=== PATIENT | female | born 1985 | race Caucasian/White ===

== ENCOUNTER 2017-09-16 07:17 | Emergency (ER) | payer BC ==
[2017-09-16 07:36] VITALS: BP 103/52
--- NOTE | 2017-09-16 08:53 | UC ---
Ear Complaint HPI - HPI Summary HPI Summary: RIGHT EAR PAIN AND PRESSURE FOR ABOUT A WEEK. ALSO HAS HAD URI SX FOR SEVERAL WEEKS. DOES NOT FEEL SHE IS GETTING BETTER. - History of Current Complaint Chief Complaint: UCEar Stated Complaint: EAR PAIN Time Seen by Provider: 09/16/17 08:45 Hx Obtained From: Patient Hx Last Menstrual Period: 08/19/17 Onset/Duration: Gradual Onset, Lasting Weeks, Still Present Severity Initially: Moderate Severity Currently: Moderate Pain Intensity: 7 Pain Scale Used: 0-10 Numeric Aggravating Factors: Nothing Alleviating Factors: Nothing Associated Signs/Symptoms: Positive: Hearing Loss, URI Symptoms. Negative: Discharge - Allergies/Home Medications Allergies/Adverse Reactions: Allergies Allergy/AdvReac Type Severity Reaction Status Date / Time No Known Allergies Allergy Verified 09/16/17 07:36 PMH/Surg Hx/FS Hx/Imm Hx Endocrine History: Thyroid Disease - LUCAS - Surgical History Surgical History: None - Family History Known Family History: Positive: Hypertension - Social History Alcohol Use: None Substance Use Type: None Smoking Status (MU): Never Smoked Tobacco Review of Systems Constitutional: Fatigue ENT: Ear Ache, Nasal Discharge Respiratory: Cough Cardiovascular: Negative Gastrointestinal: Negative Neurological: Headache All Other Systems Reviewed And Are Negative: Yes Physical Exam Triage Information Reviewed: Yes Appearance: No Pain Distress, Well-Nourished, Ill-Appearing - MILD Vital Signs: Initial Vital Signs Temp 97.6 F 09/16/17 07:31 Pulse 76 09/16/17 07:31 Resp 18 09/16/17 07:31 BP 103/52 09/16/17 07:31 Pulse Ox 100 09/16/17 07:31 Vital Signs Reviewed: Yes Eyes: Positive: Conjunctiva Clear ENT: Positive: Hearing grossly normal, Pharynx normal, TMs normal Neck: Positive: Supple, Nontender, No Lymphadenopathy Respiratory Exam: Normal Cardiovascular Exam: Normal Abdomen Description: Positive: Soft Musculoskeletal: Positive: No Edema Neurological: Positive: Alert Psychological: Positive: Age Appropriate Behavior Skin: Negative: rashes Ear Complaint Course/Dx - Course Course Of Treatment: NO CLEAR INFECTION ON EXAM BUT GIVEN LENGTH OF TIME OF ILLNESS AND UPCOMING TRAVEL WILL COVER WITH ABX. SEEK FOLLOW-UP IF NOT IMPROVING EXPECTED. - Differential Dx/Diagnosis Provider Diagnoses: RIGHT EAR PAIN/URI Discharge - Discharge Plan Condition: Stable Disposition: HOME Prescriptions: Amoxicillin PO (*) [Amoxicillin 500 MG CAP*] 1,000 mg PO Q12H #28 cap Fluconazole 150 MG (NF) [Diflucan 150 mg (NF)] 150 mg PO ONCE #2 tab Patient Education Materials: Upper Respiratory Infection (ED), Earache (ED) Referrals: Kristan Dwyer [employer] DEVELOPER [Primary Care Provider] - If Needed Additional Instructions: YOUR SYMPTOMS MAY BE VIRALLY MEDIATED BUT GIVEN THE LENGTH OF TIME YOU HAVE BEEN ILL WE WILL COVER YOU WITH ANTIBIOTICS. IF YOU START THE MEDICINE BE SURE TO TAKE IT FOR THE FULL COURSE. REST, HYDRATE, OTC MEDS NEEDED. SEEK FOLLOW- UP WITH YOUR PCP IF YOU ARE NOT IMPROVING OVER THE NEXT 1-2 WEEKS.
== END 2017-09-16 09:00 | disposition home or self-care (01) ==
LOC: UCEAST 07:17
DX: H92.01 Otalgia, right ear (principal); J06.9 Acute upper respiratory infection, unspecified
CPT/HCPCS: 99212; G0463

== ENCOUNTER 2019-04-08 06:07 | Emergency (ER) | payer BC ==
[2019-04-08] MEDS ORDERED: traMADol TAB* 50 MG PO ONE (06:43)
[2019-04-08 07:25] LABS: ABS Basophils 0.1 10^3/ul (0-0.2); ABS Eosinophils 0.1 10^3/ul (0-0.6); ABS Lymphocytes 1.4 10^3/ul (1.0-4.8); ABS Monocytes 0.4 10^3/ul (0-0.8); ABS Neutrophils 2.8 10^3/ul (1.5-7.7); Eosinophil % 1.2 %; Hematocrit 39 % (35-47); Hemoglobin 13.6 g/dL (12.0-16.0); Lymphocyte % 28.8 %; Mean Corpuscular HGB Conc 35 g/dL (31-36); Mean Corpuscular Hemoglobin 29 pg (27-31); Mean Corpuscular Volume 84 fL (80-97); Mean Platelet Volume 7.7 fL (7.4-10.4); Platelet Count 215 10^3/uL (150-450); Red Blood Count 4.64 10^6 /uL (3.70-4.87); Red Cell Distribution Width 13 % (10-15); White Blood Count 4.7 10^3/uL (3.5-10.8)
[2019-04-08 07:51] LABS: Albumin 4.3 g/dL (3.2-5.2); Albumin/Globulin Ratio 1.6 (1-3); BUN/Creatinine Ratio 14.7 (8-20); C Reactive Protein 1.02 mg/L (<8.01); Calcium 9.3 mg/dL (8.6-10.3); EGFR Non-African American 88.5 (>60); Globulin 2.7 g/dL (2-4); Potassium 3.8 mmol/L (3.5-5.0); Total Bilirubin 0.6 mg/dL (0.2-1.0)
[2019-04-08 08:22] VITALS: BP 101/72
--- NOTE | 2019-04-08 08:26 | ED ---
Skin Complaint - HPI Summary HPI Summary: Patient is a 34-year-old female presenting to the ED with concern for right breast infection. She is endorsing pain over to the right nipple as well as enlarged lymph nodes to the right axilla and right cervical anterior LN. Patient states she is a ultrasound appointment for the enlarged axillary lymph nodes, however this is an 2 weeks. She states symptoms began approximately 4-5 days ago and ever being constant. She states the injury to the nipple of the right breast has not gotten worse or better, however has remained the same. She is not currently breast-feeding. She denies any fevers, sweats, chills. She denies history of breast CA, however has a history of breast lumps while breast-feeding. - History of Current Complaint Chief Complaint: EDRashSkinAbscess Time Seen by Provider: 04/08/19 06:29 Stated Complaint: POSS CHEST INFECTION PER PT Hx Obtained From: Patient Hx Last Menstrual Period: 08/19/17 Onset/Duration: Started Days Ago Skin Exposure Onset/Duration: Days Ago Timing: Constant Onset Severity: Moderate Current Severity: Moderate Pain Intensity: 4 Pain Scale Used: 0-10 Numeric Skin Location: Other: - right nipple of the R breast Aggravating Symptom(s): Nothing Alleviating Symptom(s): Nothing Associated Signs & Symptoms: Negative - Allergy/Home Medications Allergies/Adverse Reactions: Allergies Allergy/AdvReac Type Severity Reaction Status Date / Time No Known Allergies Allergy Verified 04/08/19 06:12 Home Medications: Home Medications Adrenal Support 1 tab PO DAILY WITH MEAL 04/08/19 [History Confirmed 04/08/19] Ascorbic Acid TAB* [Vitamin C TAB*] 1,000 mg PO DAILY 04/08/19 [History Confirmed 04/08/19] Magnesium Oxide [Magnesium] 400 mg PO DAILY 04/08/19 [History Confirmed 04/08/19 ] Thyroid,Pork [Fore[employer] Nurs[employer] 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 Thyroid 15] 15 mg PO DAILY 04/08/19 [History Confirmed 04/08/19 ] Vitamin B Complex TAB* 1 tab SL DAILY 04/08/19 [History Confirmed 04/08/19] PMH/Surg Hx/FS Hx/Imm Hx Previously Healthy: Yes Endocrine/Hematology History: Denies: Hx Diabetes, Hx Thyroid Disease Cardiovascular History: Denies: Hx Hypertension Respiratory History: Denies: Hx Asthma, Hx Chronic Obstructive Pulmonary Disease (COPD) GI History: Denies: Hx Ulcer - Immunization History Hx Pertussis Vaccination: No Immunizations Up to Date: Yes Infectious Disease History: No Infectious Disease History: Denies: Hx Clostridium Difficile, Hx Hepatitis, Hx Human Immunodeficiency Virus (HIV), Hx of Known/Suspected MRSA, Hx Shingles, Hx Tuberculosis, Hx Known/ Suspected VRE, Hx Known/Suspected VRSA, History Other Infectious Disease, Traveled Outside the [place] in Last 30 Days - Family History Known Family History: Positive: Hypertension - Social History Occupation: Employed Full-time Lives: With Family Alcohol Use: Occasionally Hx Substance Use: No Substance Use Type: Reports: None Smoking Status (MU): Never Smoked Tobacco Review of Systems Negative: Fever, Chills, Fatigue, Skin Diaphoresis Negative: Palpitations, Chest Pain Negative: Shortness Of Breath, Cough Genitourinary: Negative Positive: no symptoms reported Negative: Arthralgia, Myalgia Positive: Other - right nipple erythema Neurological: Negative All Other Systems Reviewed And Are Negative: Yes Physical Exam Triage Information Reviewed: Yes Vital Signs On Initial Exam: Initial Vitals Temp Pulse Resp BP Pulse Ox 99.3 F 101 16 125/91 98 04/08/19 06:09 04/08/19 06:09 04/08/19 06:09 04/08/19 06:09 04/08/19 06:09 Vital Signs Reviewed: Yes Appearance: Positive: Well-Appearing, No Pain Distress Skin: Positive: Skin Color Reflects Adequate Perfusion, Other - R nipple with erythema just lateral - no evidence of mastitis Neck: Positive: Supple, Enlarged Nodes @ - cervical anterior and R axillary Respiratory/Lung Sounds: Positive: Clear to Auscultation Cardiovascular: Positive: RRR, Pulses are Symmetrical in both Upper and Lower Extremities Musculoskeletal: Positive: Strength/ROM Intact Neurological: Positive: Alert, Oriented to Person Place, Time, Speech Normal Psychiatric: Positive: Affect/Mood Appropriate AVPU Assessment: Alert Diagnostics - Vital Signs Vital Signs Temp Pulse Resp BP Pulse Ox 04/08/19 06:09 99.3 F 101 16 125/91 98 - Laboratory Lab Results: Lab Results 04/08/19 04/08/19 04/08/19 Range/Units 07:19 07:19 07:19 WBC 4.7 (3.5-10.8) 10^3/uL RBC 4.64 (3.70-4.87) 10^6 /uL Hgb 13.6 (12.0-16.0) g/dL Hct 39 (35-47) % MCV 84 (80-97) fL MCH 29 (27-31) pg MCHC 35 (31-36) g/dL RDW 13 (10-15) % Plt Count 215 (150-450) 10^3/uL MPV 7.7 (7.4-10.4) fL Neut % (Auto) 59.8 % Lymph % (Auto) 28.8 % Gilliam % (Auto) 8.8 % Eos % (Auto) 1.2 % Baso % (Auto) 1.4 % Absolute Neuts (auto) 2.8 (1.5-7.7) 10^3/ul Absolute Lymphs (auto) 1.4 (1.0-4.8) 10^3/ul Absolute Monos (auto) 0.4 (0-0.8) 10^3/ul Absolute Eos (auto) 0.1 (0-0.6) 10^3/ul Absolute Basos (auto) 0.1 (0-0.2) 10^3/ul Absolute Nucleated RBC 0.0 10^3/ul Nucleated RBC % 0.0 Sodium 136 (135-145) mmol/L Potassium 3.8 (3.5-5.0) mmol/L Chloride 104 (101-111) mmol/L Carbon Dioxide 28 (22-32) mmol/L Anion Gap 4 (2-11) mmol/L BUN 11 (6-24) mg/dL Creatinine 0.75 (0.51-0.95) mg/dL Est GFR ( Amer) 107.0 (>60) Est GFR (Non-Af Amer) 88.5 (>60) BUN/Creatinine Ratio 14.7 (8-20) Glucose 89 (70-100) mg/dL Lactic Acid 0.5 (0.5-2.0) mmol/L Calcium 9.3 (8.6-10.3) mg/dL Total Bilirubin 0.60 (0.2-1.0) mg/dL AST 16 (13-39) U/L ALT 10 (7-52) U/L Alkaline Phosphatase 34 (34-104) U/L C-Reactive Protein 1.02 (<8.01) mg/L Total Protein 7.0 (6.4-8.9) g/dL Albumin 4.3 (3.2-5.2) g/dL Globulin 2.7 (2-4) g/dL Albumin/Globulin Ratio 1.6 (1-3) Result Diagrams: 04/08/19 07:19 04/08/19 07:19 Lab Statement: Any lab studies that have been ordered have been reviewed, and results considered in the medical decision making process. Course/Dx - Course Course Of Treatment: Patient is endorsing exquisite tenderness to the right nipple of the right breast. On physical examination, she has enlarged lymph nodes to the right axillary area as well as right cervical anterior lymph nodes. There is a small area of erythema just right/lateral to the right nipple of the right breast. This does not appear to be a mastitis, however could be a small infection. Labs obtained which showed no elevated white count or CRP. However due to enlarged lymph nodes and right erythematous area to the right breast, patient will be placed on a course of antibiotics. She is encouraged to follow up with her PCP as well as to keep her appt with US of the R breast as scheduled. - Diagnoses Provider Diagnoses: Cellulitis Discharge - Sign-Out/Discharge Documenting (check all that apply): Patient Departure Patient Received Moderate/Deep Sedation with Procedure: No - Discharge Plan Condition: Stable Disposition: HOME Prescriptions: Cephalexin CAP* [Keflex CAP*] 500 mg PO TID #15 cap MDD 3 Fluconazole [Diflucan 150 MG (NF)] 150 mg PO ONCE #1 tab Referrals: Kristan Potter NP [Primary Care Provider] - Additional Instructions: You may have an small infection in the right breast which could be the cause of your enlarged lymphnodes Keflex three times daily x 5 days If symptoms worsen, return to the ED immediately Please call to schedule your appt for the ultrasound - Billing Disposition and Condition Condition: STABLE Disposition: Home
== END 2019-04-08 08:23 | disposition home or self-care (01) ==
LOC: ED 06:07
DX: N61.0 Mastitis without abscess (principal); Z79.899 Other long term (current) drug therapy
CPT/HCPCS: 36415; 80053; 83605; 85025; 86140; 99283; A9270-GY

== ENCOUNTER 2019-05-13 07:20 | Emergency (ER) | payer BC ==
[2019-05-13] MEDS ORDERED: NS 0.9% 1000 ML** 1,000 ML IV ONE (07:38)
[2019-05-13] MEDS: Ondansetron INJ* 2 MG/ML VIAL IV ONE ×2 (07:55→08:13)
[2019-05-13] MEDS ORDERED: PROCHLORPERAZINE INJ 5 MG/ML 2 ML VIAL IV ONE (08:01)
--- OUTSIDE RECORDS SUMMARY | 2019-05-13 08:02 | XMS REPORT | Continuity of Care Document ---
:1985 External Reference #:[id number] Author Name GonsalezJerryKyra Care Team Providers Name Role Phone Kristan Potter F.N.P. Primary Care Physician Unavailable Payers Date Identification Numbers Payment Provider Subscriber Policy Number: [id number] [employer] Bernice Lockwood PayID: [id number] [address] [address] [place] [address] Family History Date Family Member(s) Observation Comments Father Hypertension Father Heart Disease Hx of TIA Father anxiety Father IBS Mother autoimmune disease Mother Thyroid Disease Mother anxiety Mother ADHD Siblings 3 First Brother psychiatric disorders depression and anxiety First Brother Seasonal Allergies First Brother ADHD First Brother Substance abuse First Brother Bipolar Disorder First Sister autoimmune disease First Sister Seizure Disorder First Sister psychiatric disorder with anxiety and depression First Sister substance abuse First Sister Bipolar Disorder Grandfather Heart Disease hx of TIA Paternal Grandmother Cancer Paternal Grandmother Diabetes Paternal Grandmother autoimmune disease Paternal Grandmother Thyroid Disease Paternal Grandmother anxiety Maternal Grandfather Heart Disease Maternal Grandfather Depression with anxiety Maternal Grandmother Heart Disease Maternal Grandmother Hypertension Maternal Grandmother Diabetes Maternal Grandmother autoimmune disease Maternal Grandmother Arthritis Maternal Grandmother Thyroid Disease Maternal Grandmother Asthma Maternal Grandmother Seasonal Allergies Social History Type Date Description Comments Sex Unknown Marital Status Lives With Lives With Daughter Lives With Sons Occupation Student Tobacco Use Start: Unknown Never Smoked Cigarettes ETOH Use Occasionally consumes 1-3 drinks weekly alcohol previous alcohol intake: mild Tobacco Use Start: Unknown Patient has never smoked Recreational Drug Use Never Used Drugs Smoking Status Reviewed: 04/19/19 Patient has never smoked Exercise Type/Frequency Exercises regularly walkinx weekly for 30-60 minutes light weight liftin-4x monthly 45 minute duration stretching hockey: once monthly 75 minutes Allergies, Adverse Reactions, Alerts Description No Known Drug Allergies Medications Active Medications SIG Qnty Indications Ordering Provider Date STICK ROLLER Thyroid 16.25mg 3x daily Unknown 15mg Tablets Vitamin B-12 1 by mouth every Unknown Natural day (takes 5000mg 500mcg Tablets daily) Vitamin D 1 by mouth every Unknown 1999Unit day in winter Capsules (dosage unspecified)(not taking currently) Probiotic 1 by mouth every Unknown Capsules day (2 billion cfu) Super [place] 3 Epa/Dha daily Unknown 1000mg Capsules Immucore 1-2 daily Unknown Magnesium 1 every day Unknown 400mg Tablets Augmentin one by mouth Unknown 875-125mg every 12 hours Tablets for ten days History Medications Adrenogen 1 tablet by mouth daily Unknown - 04/18/2019 Candex Unknown - 03/25/2019 [place] Unknown - 03/25/2019 Vital Signs Date Vital Result Comment 04/19/2019 1:46pm Height 62 inches 5'2" Weight 119.00 lb no shoes BP Systolic Sitting 100 mmHg lue reg cuff BP Diastolic Sitting 75 mmHg lue reg cuff BP Systolic Standing 100 mmHg lue reg cuff BP Diastolic Standing 78 mmHg lue reg cuff Respiratory Rate 14 /min BMI (Body Mass Index) 21.8 kg/m2 Ejection Fraction none 04/08/2019 11:11am Height 62 inches 5'2" Weight 119.00 lb Heart Rate 83 /min BP Systolic Sitting 94 mmHg Lue BP Diastolic Sitting 66 mmHg Lue Respiratory Rate 16 /min Body Temperature 97.7 F O2 % BldC Oximetry 96 % room air BMI (Body Mass Index) 21.8 kg/m2 03/21/2019 3:43pm Height 61.75 inches 5'1.75" Weight 122.00 lb Heart Rate 88 /min BP Systolic 86 mmHg BP Diastolic 60 mmHg O2 % BldC Oximetry 96 % BMI (Body Mass Index) 22.5 kg/m2 01/24/2019 11:10am Height 61.75 inches 5'1.75" Weight 123.00 lb Heart Rate 90 /min BP Systolic 98 mmHg BP Diastolic 68 mmHg O2 % BldC Oximetry 97 % BMI (Body Mass Index) 22.7 kg/m2 12/10/2018 9:15am Height 61.75 inches 5'1.75" Weight 123.12 lb Heart Rate 84 /min BP Systolic 103 mmHg BP Diastolic 66 mmHg Body Temperature 97.2 F O2 % BldC Oximetry 99 % BMI (Body Mass Index) 22.7 kg/m2 Last Menstrual Period [id number] Results Test Date Facility Test Result H/L Range Note Leukemia/Lymph 04/17/2019 [facility] Path Interpretation tnp carmen Phenot [address] [place] [address] [phone] Path Interpret 9-15 Marker (SEE NOTE) 1 Path Interpret > 16 Marker tnp Leukemia/Lymphoma Flow 04/17/2019 [facility] Path Interpretation tnp [address] [place] [address] [phone] Path Interpret 9-15 Marker (SEE NOTE) 2 Path Interpret > 16 Marker tnp Laboratory test 04/17/2019 [facility] Cytology SEE RESULT [address] Non-Tacking [place] [address] [phone] Laboratory test 03/21/2019 [facility] TSH (Thyroid 0.82 mcIU/mL N 0.34-[address] Stim Horm) .60 [place] [address] [phone] T3 Free 3.90 pg/mL N 2.5-3.9 Free T4 (Free Thyroxine) 0.66 ng/dL N 0.61-1.12 Vitamin B12 809 pg/mL N 180-914 4 Thyroperoxidase AB 250.32 IU/mL High <9 Thyroglobulin AB 2.6 IU/mL <4.0 Laboratory test 12/31/2018 [facility] Progesterone 15.2 ng/mL [address] [place] [address] [phone] Vitamin D Total 25(Oh) 50.9 ng/mL High 20-50 1 FINAL DIAGNOSIS: Specimen Source: Lymph node, right axilla ([id number]) Flow cytometry immunophenotypic analysis: No evidence of an immunophenotypically abnormal cell population. Interpretative data: Lymphocytes: 94% of gated events B-cells: 15% of lymphs; kappa:lambda within normal limits T-cells/NK cells: No aberrant population detected. Markers tested: CD3, CD5, CD7, CD10, CD19, CD20, CD23, CD45, kappa surface light chains, lambda surface light chains, 7-AAD. Quality Assessment: Acceptable Viability: Acceptable Viable lymphocytes (7-AAD): 99% Specimen received within validated guidelines. A Fox-Giemsa stained slide prepared from the flow cytometry specimen was examined for quality purposes. Electronically signed by: Angie Rodriguez MD 04/19/19 0933 Technical component performed by: [place] [address] Wafer Substrate Tester: Dyllan Armendariz II, MD, PhD. 2 FINAL DIAGNOSIS: Specimen Source: Lymph node, right axilla ([id number]) Flow cytometry immunophenotypic analysis: No evidence of an immunophenotypically abnormal cell population. Interpretative data: Lymphocytes: 94% of gated events B-cells: 15% of lymphs; kappa:lambda within normal limits T-cells/NK cells: No aberrant population detected. Markers tested: CD3, CD5, CD7, CD10, CD19, CD20, CD23, CD45, kappa surface light chains, lambda surface light chains, 7-AAD. Quality Assessment: Acceptable Viability: Acceptable Viable lymphocytes (7-AAD): 99% Specimen received within validated guidelines. A Fox-Giemsa stained slide prepared from the flow cytometry specimen was examined for quality purposes. Electronically signed by: Angie Rodriguez MD 04/19/19 0933 Technical component performed by: [place] [address] Wafer Substrate Tester: Dyllan Armendariz II, MD, PhD. 3 SEE RESULT BELOW Name: BERNICE LOCKWOOD : [address]: Kristan Potter NP Acct: [id number] Unit: [id number] AGE: 34 Location: Re04/17/19 SEX: F Status: REG REF SPEC: [id number] TAYLA: 04/17/[address] [facility] [address]: Kristan Potter STICK ROLLER REQ: [id number] RECD: 04/17/19 STATUS: LUPE PORRAS DR: Lucio Noguera MD _ ORDERED: FNA-IMG GUID BX, LEVEL 4, CYTO ADEQ-1ST P FINAL DIAGNOSIS Axillary lymph node, right, ultrasound-guided fine needle aspiration: -- Reactive lymph node. COMMENT: A cell block was prepared in the evaluation of this specimen. Smears and cell block reveal similar findings. Flow cytometry is negative for an immunophenotypically abnormal cell population. A. AXILLARY RIGHT - US GUIDED RIGHT AXILLARY FINE NEEDLE ASPIRATION CLINICAL HISTORY Right axillary lymph nodes. Persistent tender lymph nodes. IMMEDIATE INTERPRETATION Passes 1-3 adequate CONTINUED ON NEXT PAGE DEPARTMENT OF PATHOLOGY, [address] [place] [address] Byron Eric M.D. Director [facility] # [id number] RUN DATE: 04/19/19 [facility] LAB LIVE PAGE 2 Patient: BERNICE LOCKWOOD [id number] (Continued) GROSS DESCRIPTION (Continued) GROSS DESCRIPTION Ultrasound guided, fine needle aspiration x 3 passes with 1 alcohol fixed slide(s), needle rinse in formalin for cell block and The specimen is sent to [place], [place] for flow cytometry on 04/17/19. Signed by and Reported on: Angie Rodriguez MD 04/19/19 1042 END OF REPORT DEPARTMENT OF PATHOLOGY, [address] [place] [address] Byron Eric M.D. Director [facility] # [id number] 4 Normal Range 180 to 914 Indeterminate Range 145 to 180 Deficient Range <145 5 Female reference ranges for Progesterone: Follicular phase.......0.3 - 1.5 ng/ml Mid-luteal phase.......5.2 - 18.5 ng/ml Postmenopausal.........< 0.8 ng/ml 1st trimester.........4.7 - 50.0 ng/ml 2nd trimester.........19.4 - 45.3 ng/ml Procedures Date Code Description Status 04/19/2019 25413 EKG Tracing & Interpretation Completed Encounters Type Date Location Provider Dx Diagnosis Office Visit 03/21/2019 [facility] Elma N94.3 Premenstrual tension 3:30p [facility] GARRETT Hernandez syndrome E06.3 Autoimmune thyroiditis R53.83 Other fatigue D51.9 Vitamin B12 deficiency anemia, unspecified Office Visit 01/24/2019 11:00a [facility] Elma David, R53.83 Other fatigue [facility] GARRETT N94.3 Premenstrual tension syndrome E06.3 Autoimmune thyroiditis Office Visit 12/10/2018 9:00a [facility] Elma David, R53.83 Other fatigue [facility] GAR[facility]TT E06.3 Autoimmune thyroiditis E55.9 Vitamin D deficiency, unspecified N94.3 Premenstrual tension syndrome Plan of Treatment Future Appointment(s):04/29/2019 9:30 am - Pascual Nieves DO FACC at [facility]04/25/2019 9:00 am - Nurse Visit IC at [facility]04/24/2019 9:30 am - Nurse Visit IC at [facility]04/24/2019 9 :00 am - Traveling ECHO 1 at [facility]05/16/2019 2:30 pm - GARRETT Ferraro at [facility]04/19/2019 - Pascual Nieves DO [id number] Dizziness and giddinessNew Orders:Echocardiogram, Scheduled: Comments:The EKG today is normal.We will check:1. An ultrasound ( echocardiogram) to make sure all valves and heart muscle are normal.2. Holter heart monitor to see what your minimum, average and maximum heart rates are and to evaluate for a heart arrhythmia.3. A treadmill stress test to ensure it is ok for youto go back to aerobic exercise.Follow up:Please schedule stress EKG at [facility] F/u PRNR00.2 PalpitationsNew Orders:Holter Monitor, Scheduled: R07.9 Chest pain, unspecifiedNew Orders:Stress Test, Treadmill, No Imaging, Scheduled: 04/29/19
[2019-05-13 08:04] LABS: ABS Eosinophils 0.1 10^3/ul (0-0.6); ABS Lymphocytes 1.7 10^3/ul (1.0-4.8); ABS Monocytes 0.4 10^3/ul (0-0.8); ABS Neutrophils 5.2 10^3/ul (1.5-7.7); Eosinophil % 0.9 %; Hematocrit 40 % (35-47); Hemoglobin 13.7 g/dL (12.0-16.0); Lymphocyte % 22.4 %; Mean Corpuscular HGB Conc 35 g/dL (31-36); Mean Corpuscular Hemoglobin 29 pg (27-31); Mean Corpuscular Volume 84 fL (80-97); Mean Platelet Volume 8.3 fL (7.4-10.4); Platelet Count 240 10^3/uL (150-450); Red Blood Count 4.73 10^6 /uL (3.70-4.87); Red Cell Distribution Width 14 % (10-15); White Blood Count 7.4 10^3/uL (3.5-10.8)
[2019-05-13 08:26] LABS: ALT 9 U/L (7-52); AST 14 U/L (13-39); Albumin 4.6 g/dL (3.2-5.2); Albumin/Globulin Ratio 1.5 (1-3); Alkaline Phosphatase 33 U/L (34-104); Anion Gap 9 mmol/L (2-11); BUN/Creatinine Ratio 16.7 (8-20); Blood Urea Nitrogen 12 mg/dL (6-24); CO2 Carbon Dioxide 24 mmol/L (22-32); Calcium 9.7 mg/dL (8.6-10.3); Chloride 106 mmol/L (101-111); EGFR African American 112.2 (>60); EGFR Non-African American 92.7 (>60); Glucose 108 mg/dL (70-100); Potassium 3.7 mmol/L (3.5-5.0); Sodium 139 mmol/L (135-145); Total Protein 7.6 g/dL (6.4-8.9)
[2019-05-13 08:33] LABS: HCG Pregnancy < 0.60 mIU/mL
[2019-05-13 09:48] VITALS: BP 116/86
--- NOTE | 2019-05-13 16:32 | ED ---
Abdominal Pain/Female - HPI Summary HPI Summary: Patient is a 34-year-old female who presents emergency department for acute lower abdominal cramping and watery diarrhea that started this morning. Patient notes nausea without vomiting. Denies passing blood. Denies fever, chills. Patient notes that her son was sick last week with similar symptoms. Patient also notes she recently finished a prescription of Augmentin for an infected tooth. Otherwise denies significant past medical history. Symptoms are moderate in severity. No current modifying factors. - History of Current Complaint Chief Complaint: EDAbdPain Stated Complaint: LOWER ABD PAIN PER EMS Time Seen by Provider: 05/13/19 07:26 Hx Obtained From: Patient Hx Last Menstrual Period: 08/19/17 Pain Intensity: 3 Pain Scale Used: 0-10 Numeric Allergies/Adverse Reactions: Allergies Allergy/AdvReac Type Severity Reaction Status Date / Time No Known Allergies Allergy Verified 05/13/19 07:37 PMH/Surg Hx/FS Hx/Imm Hx Previously Healthy: Yes Endocrine/Hematology History: Denies: Hx Diabetes, Hx Thyroid Disease Cardiovascular History: Denies: Hx Hypertension Respiratory History: Denies: Hx Asthma, Hx Chronic Obstructive Pulmonary Disease (COPD) GI History: Denies: Hx Ulcer Infectious Disease History: No Infectious Disease History: Denies: Hx Clostridium Difficile, Hx Hepatitis, Hx Human Immunodeficiency Virus (HIV), Hx of Known/Suspected MRSA, Hx Shingles, Hx Tuberculosis, Hx Known/ Suspected VRE, Hx Known/Suspected VRSA, History Other Infectious Disease, Traveled Outside the in Last 30 Days - Family History Known Family History: Positive: Hypertension, Non-Contributory - Social History Occupation: Unemployed Lives: With Family Alcohol Use: Occasionally Hx Substance Use: No Substance Use Type: Reports: None Smoking Status (MU): Never Smoked Tobacco Review of Systems Constitutional: Negative Negative: Fever, Chills Cardiovascular: Negative Respiratory: Negative Positive: Abdominal Pain, Diarrhea, Nausea. Negative: Vomiting Neurological: Negative All Other Systems Reviewed And Are Negative: Yes Physical Exam Triage Information Reviewed: Yes Vital Signs On Initial Exam: Initial Vitals Pulse BP Pulse Ox 85 114/74 100 05/13/19 07:28 05/13/19 07:28 05/13/19 07:28 Vital Signs Reviewed: Yes Appearance: Positive: Well-Appearing - Pt. sitting up in bed in NAD. Skin: Positive: Warm, Dry Head/Face: Positive: Normal Head/Face Inspection Eyes: Positive: Normal, EOMI Neck: Positive: Supple Respiratory/Lung Sounds: Positive: Clear to Auscultation, Breath Sounds Present Cardiovascular: Positive: Normal, RRR Abdomen Description: Positive: Other: - Abd. is soft with diffuse tenderness. No guarding or rebound. Neurological: Positive: Normal, CN Intact II-III Psychiatric: Positive: Affect/Mood Appropriate Diagnostics - Vital Signs Vital Signs Temp Pulse Resp BP Pulse Ox 05/13/19 09:47 99.0 F 116 20 116/86 100 05/13/19 09:28 125 116/86 98 05/13/19 09:00 105 99 05/13/19 08:58 101 121/67 100 05/13/19 08:29 104 114/79 100 05/13/19 08:00 91 99 05/13/19 07:58 97 117/93 99 05/13/19 07:30 98.2 F 96 19 114/74 100 05/13/19 07:29 96 100 05/13/19 07:28 85 114/74 100 - Laboratory Lab Results: Lab Results 05/13/19 05/13/19 Range/Units 07:47 07:47 WBC 7.4 (3.5-10.8) 10^3/uL RBC 4.73 (3.70-4.87) 10^6 /uL Hgb 13.7 (12.0-16.0) g/dL Hct 40 (35-47) % MCV 84 (80-97) fL MCH 29 (27-31) pg MCHC 35 (31-36) g/dL RDW 14 (10-15) % Plt Count 240 (150-450) 10^3/uL MPV 8.3 (7.4-10.4) fL Neut % (Auto) 70.8 % Lymph % (Auto) 22.4 % [place] % (Auto) 5.4 % Eos % (Auto) 0.9 % Baso % (Auto) 0.5 % Absolute Neuts (auto) 5.2 (1.5-7.7) 10^3/ul Absolute Lymphs (auto) 1.7 (1.0-4.8) 10^3/ul Absolute Monos (auto) 0.4 (0-0.8) 10^3/ul Absolute Eos (auto) 0.1 (0-0.6) 10^3/ul Absolute Basos (auto) 0.0 (0-0.2) 10^3/ul Absolute Nucleated RBC 0.0 10^3/ul Nucleated RBC % 0.0 Sodium 139 (135-145) mmol/L Potassium 3.7 (3.5-5.0) mmol/L Chloride 106 (101-111) mmol/L Carbon Dioxide 24 (22-32) mmol/L Anion Gap 9 (2-11) mmol/L BUN 12 (6-24) mg/dL Creatinine 0.72 (0.51-0.95) mg/dL Est GFR ( Amer) 112.2 (>60) Est GFR (Non-Af Amer) 92.7 (>60) BUN/Creatinine Ratio 16.7 (8-20) Glucose 108 H (70-100) mg/dL Calcium 9.7 (8.6-10.3) mg/dL Total Bilirubin 0.40 (0.2-1.0) mg/dL AST 14 (13-39) U/L ALT 9 (7-52) U/L Alkaline Phosphatase 33 L (34-104) U/L Total Protein 7.6 (6.4-8.9) g/dL Albumin 4.6 (3.2-5.2) g/dL Globulin 3.0 (2-4) g/dL Albumin/Globulin Ratio 1.5 (1-3) Lipase 31 (11.0-82.0) U/L Beta HCG, Quant < 0.60 mIU/mL Result Diagrams: 05/13/19 07:47 05/13/19 07:47 Lab Statement: Any lab studies that have been ordered have been reviewed, and results considered in the medical decision making process. Abdominal Pain Fem Course/Dx - Course Course Of Treatment: Patient presenting with Charles diarrhea and lower abdominal pain. She has a benign abdominal exam. Afebrile. Given recent antibiotic use did order C diff. Blood work is unremarkable. C. difficile is positive. Patient tolerating by mouth fluids. Will treat with vancomycin. Close follow- up with PCP. Increase fluids. To return to the ER symptoms change or worsen. Patient understands and agrees with plan. - Diagnoses Differential Diagnosis: Positive: Appendicitis, Irritable Bowel Syndrome Provider Diagnoses: C. difficile colitis Discharge - Sign-Out/Discharge Documenting (check all that apply): Patient Departure Patient Received Moderate/Deep Sedation with Procedure: No - Discharge Plan Condition: Good Disposition: HOME Prescriptions: Vancomycin CAP* 125 mg PO QID #40 cap Patient Education Materials: C Diff (Clostridium Difficile) Infection (ED) Referrals: Kristan Potter NP [Primary Care Provider] - Additional Instructions: Follow up with PCP withing one week Take medication as directed Increase fluids Return to ER if symptoms change or worsen - Billing Disposition and Condition Condition: GOOD Disposition: Home
== END 2019-05-13 09:47 | disposition home or self-care (01) ==
LOC: ED 07:20
DX: A04.72 Enterocolitis due to Clostridium difficile, not specified as recurrent (principal)
CPT/HCPCS: 36415; 80053; 83690; 84702; 85025; 87493; 96361; 96374; 96375; 99283; J2405

== ENCOUNTER 2019-07-07 20:20 | Emergency (ER) | payer BC ==
--- OUTSIDE RECORDS SUMMARY | 2019-07-07 20:27 | XMS REPORT | Continuity of Care Document ---
:1985 External Reference #:[id number] Author Name Tico Wyatt MD Address [address] [place] [address] Care Team Providers Name Role Phone Tariq CUSTOMER RESPONSE REPRESENTATIVEKristan - Nurse Care Team Information Global Marketing Coordinator [phone] Practitioner Problems Description No Information Available Social History Type Date Description Comments Sex Unknown Tobacco Use Start: Unknown Never Smoked Cigarettes Tobacco Use Start: Unknown Never Smoked Cigars Tobacco Use Start: Unknown Never Smoked A Pipe Smokeless Tobacco Never Used Smokeless Tobacco ETOH Use Currently rarely consumes alcohol Allergies, Adverse Reactions, Alerts Description No Known Drug Allergies Medications Active Medications SIG Qnty Indications Ordering Provider Date Penicillin V 500 mg 3 times a 30tabs J32.9 Tico Wyatt 07/01/2019 Potassium day 500mg Tablets CUSTOMER RESPONSE REPRESENTATIVE Thyroid Take One Tablet Unknown 15mg Tablets By Mouth Three Times A Day Vitamin D as directed Unknown 2000Unit Tablets [facility] Vitamin B12 daily Unknown 1000mcg Tablets Probiotic 1 by mouth every Unknown Capsules day Magnesium 1 by mouth every Unknown 500mg day Capsules Adrenal C Formula daily Unknown Tablets Immunizations Description No Information Available Vital Signs Date Vital Result Comment 07/01/2019 9:37am Weight 113.00 lb Weight 51.257 kg Height 62 inches 5'2" Height in cm's 157.5 cm BMI (Body Mass Index) 20.7 kg/m2 Results Description No Information Available Procedures Date Code Description Status 07/01/2019 75024 Nasal Endoscopy, Diagnostic Completed Medical Devices Description No Information Available Encounters Type Date Location Provider Dx Diagnosis Office Visit 07/05/2019 [place],Tico Alfonso J31.0 Chronic rhinitis 11:30a 09/25/07 G50.1 Atypical facial pain Office Visit 07/01/2019 9:15a [place],After 09/25/07 Tico Wyatt J31.0 Chronic MD rhinitis J32.9 Chronic sinusitis, unspecified Assessments Date Code Description Provider 07/05/2019 J31.0 Chronic rhinitis Tico Wyatt MD 07/05/2019 G50.1 Atypical facial pain Tico Wyatt MD 07/01/2019 J31.0 Chronic rhinitis Tico Wyatt MD 07/01/2019 J32.9 Chronic sinusitis, unspecified Tico Wyatt MD Plan of Treatment Future Appointment(s):07/19/2019 9:15 am - Tico Wyatt MD at [place],After - Tico Wyatt MDJ31.0 Chronic cwvmkntnM29.1 Atypical facial painComments:I discussed trigeminal nerve block, no indication for sinus management. Recheck when necessary. Functional Status Description No Information Available Mental Status Description No Information Available Referrals Description No Information Available
--- OUTSIDE RECORDS SUMMARY | 2019-07-07 20:27 | XMS REPORT | Continuity of Care Document ---
:1985 External Reference #:[id number] Author Name GARRETT Ferraro (transmitted by agent of provider Steffi Lindo) Address [address], [place] [address] Care Team Providers Name Role Phone Kristan Potter F.N.P. 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 Problems Description No Information Available Social History Type Date Description Comments Sex Unknown Tobacco Use Start: Unknown Never Smoked Cigarettes ETOH Use Occasionally consumes 1-3 drinks weekly alcohol previous alcohol intake: mild Tobacco Use Start: Unknown Patient has never smoked Recreational Drug Use Never Used Drugs Smoking Status Reviewed: 05/13/19 Patient has never smoked Exercise Type/Frequency Exercises regularly walkinx weekly for 30-60 minutes light weight liftin-4x monthly 45 minute duration stretching hockey: once monthly 75 minutes Allergies, Adverse Reactions, Alerts Description No Known Drug Allergies Medications Active Medications SIG Qnty Indications Ordering Provider Date STUDENT ADMISSIONS CLERK Thyroid 16.25mg 3x daily Unknown 15mg Tablets Vitamin B-12 1 by mouth every Unknown Natural day (takes 5000mg 500mcg Tablets daily) Vitamin D 1 by mouth every Unknown 2000Unit day in winter Capsules (dosage unspecified)(not taking currently) Probiotic 1 by mouth every Unknown Capsules day (2 billion cfu) Super [place] 3 Epa/Dha daily Unknown 1000mg Capsules Immucore 1-2 daily Unknown Magnesium 1 every day Unknown 400mg Tablets Augmentin one by mouth Unknown 875-125mg every 12 hours Tablets for ten days Immunizations Description No Information Available Vital Signs Date Vital Result Comment 05/13/2019 11:41am Height 62 inches 5'2" Weight 119.00 lb Heart Rate 94 /min BP Systolic 102 mmHg BP Diastolic 73 mmHg O2 % BldC Oximetry 100 % BMI (Body Mass Index) 21.8 kg/m2 04/19/2019 1:46pm Height 62 inches 5'2" Weight 119.00 lb no shoes BP Systolic Sitting 100 mmHg lue reg cuff BP Diastolic Sitting 75 mmHg lue reg cuff BP Systolic Standing 100 mmHg lue reg cuff BP Diastolic Standing 78 mmHg lue reg cuff Respiratory Rate 14 /min BMI (Body Mass Index) 21.8 kg/m2 Ejection Fraction none Results Test Date Facility Test Result H/L Range Note Leukemia/Lymph 04/17/2019 [facility] Path Interpretation tnp carmen Phenot [address] [place] [address] [phone] Path Interpret 9-15 Marker (SEE NOTE) 1 Path Interpret > 16 Marker tnp Leukemia/Lymphoma Flow 04/17/2019 [facility] Path Interpretation tnp [address] [place] [address] [phone] Path Interpret 9-15 Marker (SEE NOTE) 2 Path Interpret > 16 Marker tnp Laboratory test 04/17/2019 [facility] Cytology SEE RESULT [address] Non-Water Rights [place] [address] [phone] Laboratory test 03/21/2019 [facility] TSH (Thyroid 0.82 Normal 0.34- finding [address] Stim Horm) mcIU/mL 5.60 [place] [address] [phone] T3 Free 3.90 pg/mL Normal 2.5-3.9 Free T4 (Free Thyroxine) 0.66 ng/dL Normal 0.61-1.12 Vitamin B12 809 pg/mL Normal 180-914 4 Thyroperoxidase AB 250.32 IU/mL High <9 Thyroglobulin AB 2.6 IU/mL <4.0 Laboratory test 12/31/2018 [facility] Progesterone 15.2 ng/mL [address] [place] [address] [phone] Vitamin D Total 25(Oh) 50.9 ng/mL High 20-50 1 FINAL DIAGNOSIS: Specimen Source: Lymph node, right axilla ([id number]) Flow cytometry immunophenotypic analysis: No evidence of [...] MD 04/19/19 0933 Technical component performed by: [place] [address] Computer Field Technician: Dyllan Armendariz II, MD, PhD. 2 FINAL DIAGNOSIS: Specimen Source: Lymph node, right axilla ([id number]) Flow cytometry immunophenotypic analysis: No evidence of [...] MD 04/19/19 0933 Technical component performed by: [place] [address] Computer Field Technician: Dyllan Armendariz II, MD, PhD. 3 SEE RESULT BELOW Name: SERINA LOCKWOOD : [address]: Kristan Potter STUDENT ADMISSIONS CLERK Acct: [id number] Unit: [id number] AGE: 34 Location: SP Re04/17/19 SEX: F Status: REG REF SPEC: [id number] TAYLA: 04/17/19-[address]: Kristan Potter STUDENT ADMISSIONS CLERK REQ: [id number] RECD: 04/17/19 STATUS: LUPE PORRAS DR: Lucio Noguera MD _ ORDERED: FNA-IMG GUID BX, LEVEL 4, CYTO ADEQ-1ST P ADDENDUM Flow cytometry has been performed at [facility], [place], [place]. The testing reveals: FINAL DIAGNOSIS: Specimen Source: Lymph node, right axilla ([id number]) Flow cytometry immunophenotypic analysis: No evidence of [...] MD 04/19/19 0933 Technical component performed by: [place] [address] Computer Field Technician: Dyllan Armendariz II, MD, PhD. CONTINUED ON NEXT PAGE DEPARTMENT OF PATHOLOGY, [address] [place] [address] Byron Eric M.D. Director [facility] # [id number] RUN DATE: 04/22/19 [facility] LAB LIVE PAGE 2 Patient: SERINA LOCKWOOD [id number] (Continued) ADDENDUM (Continued) Addendum Signed (signature on file) Byron Eric MD 1619 FINAL DIAGNOSIS Axillary lymph node, right, ultrasound-guided [...] lymph nodes. IMMEDIATE INTERPRETATION Passes 1-3 adequate GROSS DESCRIPTION Ultrasound guided, fine needle aspiration x 3 passes with 1 alcohol fixed slide(s), needle rinse in formalin for cell block and The specimen is sent to [place], [place] for flow cytometry on 04/17/19. CONTINUED ON NEXT PAGE DEPARTMENT OF PATHOLOGY, [facility] [employer] [place], [place] [address] Byron Eric M.D. Director [facility] # [id number] RUN DATE: 04/22/19 [facility] LAB LIVE PAGE 3 Patient: SERINA LOCKWOOD [id number] (Continued) GROSS DESCRIPTION (Continued) Signed by and Reported on: Angie Rodriguez MD 04/19/19 1042 END OF REPORT DEPARTMENT OF PATHOLOGY, [address] [place] [address] Byron Eric M.D. Director [facility] # [id number] 4 Normal Range 180 to 914 Indeterminate Range 145 to 180 Deficient Range <145 5 Female reference ranges for Progesterone: Follicular phase.......0.3 - 1.5 ng/ml Mid-luteal phase.......5.2 - 18.5 ng/ml Postmenopausal.........< 0.8 ng/ml 1st trimester.........4.7 - 50.0 ng/ml 2nd trimester.........19.4 - 45.3 ng/ml Procedures Date Code Description Status 04/26/2019 38095 Holter Monitor Review (24 hr)dr hernandez & interp only Completed 04/24/2019 18938 ECHO Transthoracic, Real-Time 2D With Doppler And Color Completed Flow 04/24/2019 74546 ECHO Transthoracic, Real-Time 2D With Doppler And Color Completed Flow 04/24/2019 00090 ECG Monitor/Recording W/Visual Superimposition Scanning Completed 04/19/2019 12142 EKG Tracing & Interpretation Completed Medical Devices Description No Information Available Encounters Type Date Location Provider Dx Diagnosis Office Visit 04/19/2019 [facility] Pascual Nieves, R42 Dizziness and 1:40p Of [facility] DO [facility] giddiness R00.2 Palpitations R07.9 Chest pain, unspecified Office Visit 04/08/2019 11:00a [facility] Elma Hernandez, N64.4 Mastodynia [facility] [place] Office Visit 03/21/2019 3:30p [facility] Elma Hernandez, N94.3 Premenstrual [facility] tension syndrome E06.3 Autoimmune thyroiditis R53.83 Other fatigue D51.9 Vitamin B12 deficiency anemia, unspecified Office Visit 01/24/2019 11:00a [facility] Elma Hernandez, R53.83 Other fatigue [facility] N94.3 Premenstrual tension syndrome E06.3 Autoimmune thyroiditis Office Visit 12/10/2018 9:00a [facility] Elma Hernandez, R53.83 Other fatigue [facility] E06.3 Autoimmune thyroiditis E55.9 Vitamin D deficiency, unspecified N94.3 Premenstrual tension syndrome Assessments Date Code Description Provider 05/13/2019 N94.3 Premenstrual tension syndrome Elma Hernandez, GARRETT 05/13/2019 A04.72 Enterocolitis due to Clostridium Elma Hernandez, GARRETT difficile, not specified as recurrent 05/13/2019 R59.0 Localized enlarged lymph nodes GARRETT Ferraro 04/26/2019 R00.2 Palpitations Pascual Nieves, DO FACC 04/24/2019 R42 Dizziness and giddiness Pascual Nieves, DO FACC 04/24/2019 R00.2 Palpitations Nurse Visit IC 04/24/2019 R42 Dizziness and giddiness Traveling ECHO 1 04/24/2019 R00.2 Palpitations Pascual Nieves, DO FACC 04/19/2019 R42 Dizziness and giddiness Pascual Nieves, DO FACC 04/19/2019 R00.2 Palpitations Pascual Nieves, DO FACC 04/19/2019 R07.9 Chest pain, unspecified Pascual Nieves, DO FACC 04/08/2019 N64.4 Mastodynia Elma Hernandez, PA 03/21/2019 N94.3 Premenstrual tension syndrome Elma Hernandez, GARRETT 03/21/2019 E06.3 Autoimmune thyroiditis Elma Hernandez, GARRETT 03/21/2019 R53.83 Other fatigue Elma Hernandez, GARRETT 03/21/2019 D51.9 Vitamin B12 deficiency anemia, unspecified Elma Hernandez, GARRETT 01/24/2019 R53.83 Other fatigue Elma Hernandez, GARRETT 01/24/2019 N94.3 Premenstrual tension syndrome GARRETT Ferraro 01/24/2019 E06.3 Autoimmune thyroiditis Elma Hernandez, GARRETT 12/10/2018 R53.83 Other fatigue Elma Hernandez, GARRETT 12/10/2018 E06.3 Autoimmune thyroiditis Elma Hernandez, GARRETT 12/10/2018 E55.9 Vitamin D deficiency, unspecified GARRETT Ferraro 12/10/2018 N94.3 Premenstrual tension syndrome GARRETT Ferraro Plan of Treatment Future Appointment(s):07/18/2019 11:00 am - GARRETT Ferraro at [facility]06/13/2019 10:00 am - GARRETT Ferraro at [facility]05/13/2019 - Elma Hernandez PAN94.3 Premenstrual tension rcgjwfjnQ85.72 Enterocolitis due to Clostridium difficile, not specified as recurrentRecommendations:you will take all of the Vancomycin purchase RAISSA GIBSON AT [facility] TO GET IT IN BETWEEN DOSES OF YOUR VANCOMYCIN AND CONTINUE YOUR OTHER PROBIOTIC use castor oil paks to your belly, apply oil, use rags over it and then heating pad or hot water bottle. 20minutes can do twice a day fluids, broth, bone broth if possible steamed veggies, ttpqtX68.0 Localized enlarged lymph nodesRecommendations:use warm paks under R arm to promote good blood flow Functional Status Description No Information Available Mental Status Description No Information Available Referrals Description No Information Available
--- OUTSIDE RECORDS SUMMARY | 2019-07-07 20:27 | XMS REPORT | Continuity of Care Document ---
:1985 External Reference #:[id number] Author Name Tico Wyatt MD Address [address] [place] [address] Care Team Providers Name Role Phone Tariq EMERGENCY PHYSICIAN, Kristan - Nurse Care Team Information Supervisor Cell Efficiency [phone] Practitioner Problems Description No Information Available Social [...] Tico Wyatt 07/01/2019 Potassium day 500mg Tablets EMERGENCY PHYSICIAN Thyroid Take One Tablet Unknown 15mg Tablets [...] kg/m2 Results Description No Information Available Procedures Description No Information Available Medical Devices Description No Information Available Encounters Description No Information Available Assessments Date Code Description Provider 07/01/2019 J31.0 Chronic rhinitis Tico Wyatt MD 07/01/2019 J32.9 Chronic sinusitis, unspecified Tico Wyatt MD Plan of Treatment Future Appointment(s):07/19/2019 9:15 am - Tico Wyatt MD at [place],After - Tico Wyatt MDJ31.0 Chronic atdheypeK09.9 Chronic sinusitis, unspecifiedNew Medication:Penicillin V Potassium 500 mg - 500 mg 3 times a day Functional Status Description No Information Available Mental Status Description No Information Available Referrals Description No Information Available
--- NOTE | 2019-07-07 20:53 | UC ---
Abdominal Pain Female HPI - HPI Summary HPI Summary: 34 yo female presents with diarrhea. She tells me that she has been dealing with dental issues for the last few months and in April of this year she was taking Augmentin for dental reasons and developed c. diff. She completed a course of vancomycin and felt better. She had repeat stool cultures about 2 weeks ago and c. diff testing was negative. She has still been having dental issues and was placed on azithromycin for this 3 days ago and over the last 2 days has had watery diarrhea. Yesterday had about 15 episodes of watery diarrhea. Today about 10-12 episodes. She has a decreased appetite, but is eating and drinking. Denies fever, chills, vomiting, nausea, dysuria, flank pain. She also mentions that her father was recently dx'd with ulcerative colitis. - History of Current Complaint Stated Complaint: GI ISSUE Time Seen by Provider: 07/07/19 20:52 Hx Obtained From: Patient Hx Last Menstrual Period: 08/19/17 Severity Initially: Moderate Severity Currently: Moderate Pain Intensity: 5 Pain Scale Used: 0-10 Numeric Allergies/Adverse Reactions: Allergies Allergy/AdvReac Type Severity Reaction Status Date / Time No Known Allergies Allergy Verified 07/07/19 20:56 Home Medications: Home Medications ALPRAZolam [Xanax] 1 tab PO DAILY PRN 07/07/19 [History Confirmed 07/07/19] Azithromycin 1 tab PO DAILY 07/07/19 [History Confirmed 07/07/19] Ibuprofen 400 mg PO ONCE PRN 07/07/19 [History Confirmed 07/07/19] PMH/Surg Hx/FS Hx/Imm Hx - Additional Past Medical History Additional PMH: Autoimmune thyroiditis - Surgical History Surgical History: None Surgery Procedure, Year, and Place: eye surgery, - Family History Known Family History: Positive: Hypertension - Social History Lives: With Family Alcohol Use: Occasionally Substance Use Type: None Smoking Status (MU): Never Smoked Tobacco Review of Systems All Other Systems Reviewed And Are Negative: No Constitutional: Positive: Negative Skin: Positive: Negative Eyes: Positive: Negative ENT: Positive: Dental Pain Respiratory: Positive: Negative Cardiovascular: Positive: Negative Gastrointestinal: Positive: Diarrhea Genitourinary: Positive: Negative Neurological: Positive: Negative Psychological: Positive: Negative Physical Exam - Summary Physical Exam Summary: GENERAL: NAD. WDWN. No pain distress. SKIN: No rashes, sores, lesions, or open wounds. NECK: Supple. Nontender. No lymphadenopathy. CHEST: CTAB. No r/r/w. No accessory muscle use. Breathing comfortably and in no distress. CV: RRR. Pulses intact. Cap refill <2seconds ABDOMEN: Mild generalized TTP. Soft. No distention or guarding. No CVA tenderness. Bowel sounds hyperactive NEURO: Alert. PSYCH: Age appropriate behavior. Triage Information Reviewed: Yes Vital Signs: Vital Signs: Temp Pulse Resp BP Pulse Ox 100.0 F 73 18 120/82 100 07/07/19 20:50 07/07/19 20:50 07/07/19 20:50 07/07/19 20:50 07/07/19 20:50 Vital Signs Reviewed: Yes Abd Pain Female Course/Dx - Course Course Of Treatment: Pt was unable to produce a stool sample in the clinic, thus will send her with a stool kit to complete and treat as needed. Given fam hx of UC and possible second infection with C. Diff within 3 months - will refer pt to GI for further eval - Differential Dx/Diagnosis Provider Diagnosis: Diarrhea Discharge ED - Sign-Out/Discharge Documenting (check all that apply): Patient Departure All imaging exams completed and their final reports reviewed: No Studies - Discharge Plan Condition: Stable Disposition: HOME Patient Education Materials: Acute Diarrhea (ED) Referrals: Kristan Potter NP [Primary Care Provider] - Christian Kirk DO [Doctor of Osteopathy] - As Soon As Possible Additional Instructions: If you develop a fever, shortness of breath, chest pain, new or worsening symptoms - please call your PCP or go to the ED immediately. Please return the stool sample as soon as possible for further evaluation. Given your family history of ulcerative colitis, I recommend that you follow up with the GI doctor at the number below for further testing. - Billing Disposition and Condition Condition: STABLE Disposition: Home - Attestation Statements Provider Attestation: I was available for consult. This patient was seen by the SUSANNA. The patient was not presented to, seen by, or examined by me. -Monika
[2019-07-07 21:02] VITALS: BP 120/82
== END 2019-07-07 21:40 | disposition home or self-care (01) ==
LOC: UCEAST 20:20
DX: R19.7 Diarrhea, unspecified (principal); Z83.79 Family history of other diseases of the digestive system
CPT/HCPCS: 99211; G0463

== ENCOUNTER 2019-12-06 16:39 | Emergency (ER) | payer BC ==
[2019-12-06 19:02] VITALS: BP 114/77
--- NOTE | 2019-12-06 19:13 | UC ---
Abdominal Pain Female HPI - HPI Summary HPI Summary: has had c.diff before---has been on antibiotics for shirley lyme for weeks---- believes she has c.diff again and needs a test before pcp with start a/b - History of Current Complaint Chief Complaint: UCGU Stated Complaint: ABDOMINAL COMPLAINT, DIAHERRA Time Seen by Provider: 12/06/19 19:07 Hx Obtained From: Patient Hx Last Menstrual Period: 12/03/19 ?: No Onset/Duration: Sudden Onset, Lasting Days, Still Present Timing: Constant Pain Intensity: 2 Pain Scale Used: 0-10 Numeric Location: Diffuse Radiates: No Character: Cramping Aggravating Factor(s): Nothing Alleviating Factor(s): Nothing Associated Signs and Symptoms: Positive: Negative Simlar Episode/Dx as:: c.diff Allergies/Adverse Reactions: Allergies Allergy/AdvReac Type Severity Reaction Status Date / Time No Known Allergies Allergy Verified 12/06/19 19:02 Home Medications: Home Medications Adrenal Support 1 tab PO BID 04/08/19 [History Confirmed 12/06/19] Ascorbic Acid TAB* [Vitamin C TAB*] 1,000 mg PO DAILY 04/08/19 [History Confirmed 12/06/19] Magnesium Oxide [Magnesium] 400 mg PO DAILY 04/08/19 [History Confirmed 12/06/19 ] Thyroid,Pork [Compounding Pharmacy Technician Thyroid 15] 30 mg PO TID 04/08/19 [History Confirmed 12/06/19] Cholecalciferol TAB* [Vitamin D TAB*] 2,000 units PO DAILY 04/26/19 [History Confirmed 12/06/19] Cyanocobalamin TAB* [Vitamin B12 TAB*] 5,000 mcg PO DAILY 04/26/19 [History Confirmed 12/06/19] L.acidoph,Paracasei, B.lactis [Probiotic] 1 each PO DAILY 04/26/19 [History Confirmed 12/06/19] Chula-3 Fatty Acids/Dha/Epa [Ovega-3 500 mg] 1 cap PO DAILY 04/26/19 [History Confirmed 12/06/19] ALPRAZolam [Xanax] 1 tab PO DAILY PRN 07/07/19 [History Confirmed 12/06/19] Ibuprofen 400 mg PO ONCE PRN 07/07/19 [History Confirmed 12/06/19] Dgl 1 tab PO BID 11/07/19 [History Confirmed 12/06/19] Azithromycin TAB* [Zithromax TAB (Z-CHILANGO) 250 mg #6 tabs] 250 mg PO BID 12/06/19 [History Confirmed 12/06/19] Cbd Oil* 12/06/19 [History] cefTRIAXone 2 GM/100 ML NS [Rocephin 2 GM/100 ML] 2 gm IVPB DAILY 12/06/19 [ History Confirmed 12/06/19] PMH/Surg Hx/FS Hx/Imm Hx Previously Healthy: No - neuro Lyme - Surgical History Surgical History: Yes Surgery Procedure, Year, and Place: eye surgery, - Family History Known Family History: Positive: Hypertension, Non-Contributory - Social History Occupation: Unemployed Lives: With Family Alcohol Use: None Substance Use Type: None Smoking Status (MU): Never Smoked Tobacco Review of Systems All Other Systems Reviewed And Are Negative: Yes Constitutional: Positive: Negative Skin: Positive: Negative Eyes: Positive: Negative ENT: Positive: Negative Respiratory: Positive: Negative Cardiovascular: Positive: Negative Gastrointestinal: Positive: Abdominal Pain, Diarrhea Genitourinary: Positive: Negative Motor: Positive: Negative Neurovascular: Positive: Negative Musculoskeletal: Positive: Negative Neurological/Mental Status: Positive: Negative Psychological: Positive: Negative Is Patient Immunocompromised?: No Physical Exam Triage Information Reviewed: Yes Appearance: Well-Appearing, No Pain Distress, Well-Nourished Vital Signs: Initial Vital Signs Temp 98.3 F 12/06/19 18:57 Pulse 99 12/06/19 18:57 Resp 16 12/06/19 18:57 BP 114/77 12/06/19 18:57 Pulse Ox 99 12/06/19 18:57 Vital Signs Reviewed: Yes Eye Exam: Normal Eyes: Positive: Conjunctiva Clear ENT Exam: Normal ENT: Positive: Normal ENT inspection, Hearing grossly normal. Negative: Trismus , Muffled voice, Hoarse voice Neck exam: Normal Neck: Positive: Supple, Nontender Respiratory Exam: Normal Respiratory: Positive: Chest non-tender, No respiratory distress, No accessory muscle use Cardiovascular Exam: Normal Cardiovascular: Positive: Brisk Capillary Refill Abdominal Exam: Normal Abdomen Description: Positive: Nontender, Soft. Negative: Distended, Guarding Bowel Sounds: Positive: Absent Musculoskeletal Exam: Normal Musculoskeletal: Positive: Strength Intact, ROM Intact, No Edema Neurological Exam: Normal Neurological: Positive: Alert, Muscle Tone Normal Psychological Exam: Normal Skin Exam: Normal Abd Pain Female Course/Dx - Course Course Of Treatment: stool testing ordered will await result to treat --per patients request - Differential Dx/Diagnosis Provider Diagnosis: Diarrhea, unspecified Discharge ED - Sign-Out/Discharge Documenting (check all that apply): Patient Departure All imaging exams completed and their final reports reviewed: No Studies - Discharge Plan Condition: Stable Disposition: HOME Patient Education Materials: C Diff (Clostridium Difficile) Infection (ED) Referrals: Rachel Darden MD [Primary Care Provider] - 1 Day - Billing Disposition and Condition Condition: STABLE Disposition: Home - Attestation Statements Provider Attestation: This patient was not seen by me. I was available for consult. Chart reviewed MAURICIO
== END 2019-12-06 19:40 | disposition home or self-care (01) ==
LOC: UCEAST 16:39
DX: R19.7 Diarrhea, unspecified (principal); A69.22 Other neurologic disorders in Lyme disease; Z79.899 Other long term (current) drug therapy
CPT/HCPCS: 99201; G0463

== ENCOUNTER 2019-12-09 19:53 | Emergency (ER) | payer BC ==
--- NOTE | 2019-12-09 20:36 | ED ---
Complex/Multi-Sys Presentation - HPI Summary HPI Summary: 34 year old F presenting to [facility] with a chief complaint of red spots on her thighs today, right sided chest pain, an elevated heart rate, and some shortness of breath since 5 days ago. The patient rates the pain 0/10 in severity. Symptoms aggravated by nothing. Symptoms alleviated by nothing. Patient reports that she has been taking the wrong dose of Heparin which is used for her PICC line. 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 Patient denies any fever. She was seen by her PCP today and called infectious disease after her appointment who advised her to come to the emergency department for further evaluation. Medication list reviewed. Allergy list reviewed. - History Of Current Complaint Chief Complaint: EDGeneral Time Seen by Provider: 12/09/19 20:12 Hx Obtained From: Patient Onset/Duration: Lasting Days, Still Present Timing: Constant Severity Currently: None Aggravating Factor(s): None Alleviating Factor(s): None Associated Signs And Symptoms: Positive: SOB, Chest Pain, Other - Fast heart rate; red spots on her thighs. Negative: Fever - Allergies/Home Medications Allergies/Adverse Reactions: Allergies Allergy/AdvReac Type Severity Reaction Status Date / Time No Known Allergies Allergy Verified 12/09/19 20:05 Home Medications: Home Medications Adrenal Support 1 tab PO BID 04/08/19 [History Confirmed 12/06/19] Ascorbic Acid TAB* [Vitamin C TAB*] 1,000 mg PO DAILY 04/08/19 [History Confirmed 12/06/19] Magnesium Oxide [Magnesium] 400 mg PO DAILY 04/08/19 [History Confirmed 12/06/19 ] Thyroid,Pork [Last Sorter Thyroid 15] 30 mg PO TID 04/08/19 [History Confirmed 12/06/19] Cholecalciferol TAB* [Vitamin D TAB*] 2,000 units PO DAILY 04/26/19 [History Confirmed 12/06/19] Cyanocobalamin TAB* [Vitamin B12 TAB*] 5,000 mcg PO DAILY 04/26/19 [History Confirmed 12/06/19] L.acidoph,Paracasei, B.lactis [Probiotic] 1 each PO DAILY 04/26/19 [History Confirmed 12/06/19] Corea-3 Fatty Acids/Dha/Epa [Ovega-3 500 mg] 1 cap PO DAILY 04/26/19 [History Confirmed 12/06/19] ALPRAZolam [Xanax] 1 tab PO DAILY PRN 07/07/19 [History Confirmed 12/06/19] Ibuprofen 400 mg PO ONCE PRN 07/07/19 [History Confirmed 12/06/19] Dgl 1 tab PO BID 11/07/19 [History Confirmed 12/06/19] Azithromycin TAB* [Zithromax TAB (Z-CHILANGO) 250 mg #6 tabs] 250 mg PO BID 12/06/19 [History Confirmed 12/06/19] Cbd Oil* 12/06/19 [History] cefTRIAXone 2 GM/100 ML NS [Rocephin 2 GM/100 ML] 2 gm IVPB DAILY 12/06/19 [ History Confirmed 12/06/19] PMH/Surg Hx/FS Hx/Imm Hx Endocrine/Hematology History: Reports: Hx Thyroid Disease - hashimotos Denies: Hx Diabetes Cardiovascular History: Denies: Hx Hypertension Respiratory History: Denies: Hx Asthma, Hx Chronic Obstructive Pulmonary Disease (COPD) GI History: Denies: Hx Ulcer - Surgical History Surgery Procedure, Year, and Place: eye surgery, Infectious Disease History: No Infectious Disease History: Reports: Hx Clostridium Difficile, History Other Infectious Disease - Lyme, Traveled Outside the [place] in Last 30 Days Denies: Hx Hepatitis, Hx Human Immunodeficiency Virus (HIV), Hx of Known/ Suspected MRSA, Hx Shingles, Hx Tuberculosis, Hx Known/Suspected VRE, Hx Known/ Suspected VRSA - Family History Known Family History: Positive: Hypertension, Diabetes - Social History Alcohol Use: None Hx Substance Use: No Substance Use Type: Reports: None Smoking Status (MU): Never Smoked Tobacco Review of Systems Negative: Fever Positive: Chest Pain, Other - Rapid heart rate Positive: Shortness Of Breath Positive: Other - Red spots on her thighs All Other Systems Reviewed And Are Negative: Yes Physical Exam - Summary Physical Exam Summary: Appearance: The patient is well-nourished in no acute distress and in no acute pain. Skin: The skin is warm and dry, and skin color reflects adequate perfusion. HEENT: The head is normocephalic and atraumatic. The pupils are equal and reactive. The conjunctivae are clear and without drainage. Nares are patent and without drainage. Mouth reveals moist mucous membranes, and the throat is without erythema and exudate. The external ears are intact. The ear canals are patent and without drainage. The tympanic membranes are intact. Neck: The neck is supple with full range of motion and non-tender. There are no carotid bruits. There is no neck vein distension. Respiratory: Chest is non-tender. Breath sounds slightly decreased on the right. Cardiovascular: Heart is regular rate and rhythm. There is no murmur or rub auscultated. There is no peripheral edema and pulses are symmetrical and equal. Abdomen: The abdomen is soft and non-tender. There are normal bowel sounds heard in all four quadrants and there is no organomegaly palpated. Musculoskeletal: There is no back tenderness noted. Extremities are non-tender with full range of motion. There is good capillary refill. There is no peripheral edema or calf tenderness elicited. Neurological: Patient is alert and oriented to person, place and time. The patient has symmetrical motor strength in all four extremities. Cranial nerves are grossly intact. Deep tendon reflexes are symmetrical and equal in all four extremities. Psychiatric: The patient has an appropriate affect and does not exhibit any anxiety or depression. Triage Information Reviewed: Yes Vital Signs On Initial Exam: Initial Vitals Pulse BP Pulse Ox 103 132/85 100 12/09/19 20:04 12/09/19 20:04 12/09/19 20:04 Vital Signs Reviewed: Yes Procedures - Sedation Patient Received Moderate/Deep Sedation with Procedure: No Diagnostics - Vital Signs Vital Signs Temp Pulse Resp BP Pulse Ox 12/09/19 20:07 115 100 12/09/19 20:05 98.1 F 104 18 132/85 98 12/09/19 20:04 103 132/85 100 - Laboratory Result Diagrams: 12/09/19 20:56 12/09/19 20:56 Lab Statement: Any lab studies that have been ordered have been reviewed, and results considered in the medical decision making process. - Radiology Chest x-ray Radiology Interpretation Completed By: ED Physician Summary of Radiographic Findings: Unremarkable; no acute process. ED physician has reviewed and interpreted this report. - EKG 21:42 Cardiac Rate: NL - 89 BPM EKG Rhythm: Sinus Rhythm Summary of EKG Findings: Normal sinus rhythm, normal ST, no ectopy, no STEMI. ED physician has reviewed and interpreted this EKG. Complex Multi-Symp Course/Dx Course Of Treatment: The patient was signed out to Dr. Hernandez at 19:00 on 2019 pending laboratory results and disposition. - Diagnoses Provider Diagnoses: Chest pain Discharge ED - Sign-Out/Discharge Documenting (check all that apply): Patient Departure, Sign-Out Patient Signing out patient TO: Kevin Hernandez - Pending laboratory results and disposition. - Discharge Plan Condition: Stable Disposition: HOME Patient Education Materials: Chest Pain (ED) Referrals: Rachel Darden MD [Primary Care Provider] - 3 Days Additional Instructions: Follow-up with your PCP in 2-3 days. Return to the emergency department for changing or worsening symptoms. - Billing Disposition and Condition Condition: STABLE Disposition: Home - Attestation Statements Document Initiated by Scribe: Yes Documenting Scribe: Barbra Reina Provider For Whom Chas is Documenting (Include Credential): Kevin Redman MD Scribe Attestation: Barbra Gamez scribed for Kevin Redman MD on 12/09/19 at 2212. Scribe Documentation Reviewed: Yes Provider Attestation: The documentation as recorded by the Barbra griggs accurately reflects the service I personally performed and the decisions made by , Kevin Redman MD Status of Scribe Document: Viewed
[2019-12-09 21:11] LABS: ABS Basophils 0.1 10^3/ul (0-0.2); ABS Lymphocytes 2.3 10^3/ul (1.0-4.8); ABS Monocytes 0.4 10^3/ul (0-0.8); ABS Neutrophils 3.5 10^3/ul (1.5-7.7); Eosinophil % 0.7 %; Hematocrit 37 % (35-47); Hemoglobin 12.8 g/dL (12.0-16.0); Lymphocyte % 36.4 %; Mean Corpuscular HGB Conc 34 g/dL (31-36); Mean Corpuscular Hemoglobin 29 pg (27-31); Mean Corpuscular Volume 84 fL (80-97); Mean Platelet Volume 7.9 fL (7.4-10.4); Nucleated Red Blood Cells % 0.1; Platelet Count 272 10^3/uL (150-450); Red Blood Count 4.44 10^6 /uL (3.70-4.87); Red Cell Distribution Width 14 % (10-15); White Blood Count 6.3 10^3/uL (3.5-10.8)
[2019-12-09 21:20] LABS: INR 1.1 (0.82-1.09)
[2019-12-09 21:41] LABS: HCG Pregnancy < 0.60 mIU/mL
--- OUTSIDE RECORDS SUMMARY | 2019-12-09 21:57 | XMS REPORT | Summary of Care ---
:1985 Author Organization [facility] Address [address] [place] [address] Care Team Providers Name Role Phone Rachel Anaya MD Primary Care Provider Reason for Visit Reason Comments Follow-up Encounter Details Date Type Department Care Team Description 11/19/2019 Office Visit Infectious Disease Aly Singh, Lyme disease ( Primary Dx); Associates DO Chronic fatigue syndrome [address] [place] [address] [phone] Allergies Active Allergy Reactions Severity Noted Date Comments Other Rash Low 10/12/2019 Dissolvable stiches documented as of this encounter (statuses as of 11/19/2019) Medications Medication Sig Dispensed Refills Start Date End Date Status escitalopram Take 10 mg by 0 Active (LEXAPRO) 5 MG mouth daily tablet thyroid (ARMOUR Take 30 mg by 0 03/25/2018 Active THYROID) 15 MG mouth tablet alprazolam (XANAX) Take 0.25 mg by 0 Active 0.25 MG tablet mouth daily as needed for Anxiety GUIDE DOG INSTRUCTOR Thyroid 30 MG daily 0 09/12/2019 Active Oral Tablet Cyanocobalamin 1000 Take by mouth 0 Active MCG Oral Tablet ([facility] VITAMIN B12) Vitamin D3 25 MCG Take 8,000 0 Active (1000 UT) Oral Units by mouth Tablet daily (CHOLECALCIFEROL) [place] 3 1000 MG Oral Take 1 capsule 0 Active Capsule by mouth daily UNABLE TO FIND 1 capsule Med 0 Active Name: Probiotic Magnesium Oxide 400 Take 400 mg by 0 Active (241.3 Mg) MG Oral mouth daily Tablet (MAG-OX) SUCRALFATE PO Take by mouth 0 Active Four times daily before meals and nightly 1 tablet Cefuroxime Axetil Take 1 tablet 28 tablet 0 11/05/2019 Active 500 MG Oral Tablet by mouth Two 0 (CEFTIN) Times Daily levothyroxine Take 88 mcg by 0 Discontinued (SYNTHROID, mouth daily. 0 LEVOTHROID) 88 MCG tablet documented as of this encounter (statuses as of 11/19/2019) Active Problems Problem Noted Date Right facial numbness 10/12/2019 documented as of this encounter (statuses as of 11/19/2019) Social History Tobacco Use Types Packs/Day Years Used Date Never Smoker Smokeless Tobacco: Never Used Alcohol Use Drinks/Week oz/Week Comments Not Currently Sex Assigned at Date Recorded Not on file Job Start Date Occupation Industry Not on file Not on file Not on file Travel History Travel Start Travel End No recent travel history available. documented as of this encounter Last Filed Vital Signs Vital Sign Reading Time Taken Comments Blood Pressure 101/78 11/19/2019 1:14 PM EST Pulse 90 11/19/2019 1:14 PM EST Temperature 36.4 11/19/2019 1:14 PM EST C (97.6 F) Respiratory Rate 18 11/19/2019 1:14 PM EST Oxygen Saturation 100% 11/19/2019 1:14 PM EST Inhaled Oxygen Concentration - - Weight 49.9 kg (110 lb) 11/19/2019 1:14 PM EST Height 157.5 cm (5' 2") 11/19/2019 1:14 PM EST Body Mass Index 20.12 11/19/2019 1:14 PM EST documented in this encounter Patient Instructions Patient InstructionsMaAly hollis DO - 11/19/2019 1:00 PM ESTGo ahead and finish the antibiotic prescription you have If you have a recurrence of your symptoms, call the clinic- we will restart the cefuroxime 500 mg twice a day and bring you in for a follow-up to potentially discuss IV antibioticsElectronically signed by Aly Singh DO at 2019 1:45 PM EST documented in this encounter Progress Notes Aly Singh DO - 11/19/2019 1:00 PM EST Infectious Diseases Outpatient Progress Note @SUBBJECTIVEBEGIN@ Interval History: feels greatly improved since last visit and certainly improved compared with six weeks ago, continues on cefuroxime for treatment of possible Lyme disease, has 4 days of medications remaining No fevers or chills Still with some nausea and very mild headache symptoms Current Diagnosis: possible Lyme disease Current Antimicrobial Therapy: cefuroxime 500 mg po bid (11/08-) HPI and Course of Care: 34 y.o. female seen today for possible Lyme disease. Patient reports history of relative adrenal insufficiency with autonomic dysfunction (POTS disease), as well as Oriana's thyroiditis. 03/2019, noticed increased pain in her right cheek following a tooth extraction and dental infection, these symptoms lasted for several months with lancinating pain intermittently. Was diagnosed with neuralgia at that time, treated conservatively, was evaluated by maxillofacial surgery that recommended no invasiveintervention. 08/2019, began having profound symptoms of fatigue, malaise, difficulty concentrating,"brain fog" with memory impairment. She was briefly hospitalized 09/2019 for these symptoms, concern for demyelinating process. MRI brain revealed single non-enhancing punctate focus in the periventricular white matter of the posterior-superior right lateral ventricle, a nonspecific finding that could very well be a normal variant. CSF was performed, negative for inflammatory findings, not suggestive of multiple sclerosis. Lyme BRODIE was positive for IgM with 3/3 bands on WB, IgG negative. Lyme C6 peptide was negative, CSF Borrelia PCR negative. Given absence of other obvious diagnosis, patient was started on doxycycline 100 mg po bid x 28 days for possible Lyme disease, referred to ID for further recommendations. Patient reports frequent outdoor activities in the spring and summer months. Does not recall a specific tick bite, rash, or febrile illness this past summer. No history of tick borne illness. Has a dogwho wears a tick collar and received vaccination. 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 Lives at home with and 3 children.She did report some mild subjective improvement of her symptoms with doxycycline, but found it very difficult to tolerate due to GI upset, completed 20 days of therapy. She followed up with her ENT doctor on 11/04, was told she has severe inflammatory findings of her larynx. Had EGD which showed no evidence of gastritis or ulcer disease. She was initially evaluated at [facility] on 11/05/19, switched from doxycycline to cefuroxime 500 mgpo bid. Gi symptoms improved after discontinuation of doxycycline. Brain fog, headache symptoms improved with cefuroxime therapy Objective Vital signs in last 24 hours: 11/19/19 1:14 PM BP 101/78 Pulse 90 Resp 18 Temp 36.4C(97.6F) SpO2 100% Weight KG (LBS) 49.9kg(110lb) Height 1.575m(5'2") Pain Score One Pain Loc Head Pain Edu? Yes Physical Exam Gen- NAD Eyes- no petechiae Throat- no thrush Cardiac- RRR, no murmur Pulm- CTA bilat Abd- soft, NTND MSK- no joint swelling Ext- no edema Integ- no rash Neuro- AAO x 3 Data Review Pertinent labs, radiology, microbiologic data, progress notes, consult notes, and prior records havebeen reviewed Assessment/Plan Possible Lyme disease, although diagnostics suggest this is unlikely Autonomic dysfunction, ? Relative adrenal insufficiency -Despite negative testing for Lyme disease, she reports a very good response to cefuroxime therapy, she is concerned that her symptoms may recur if she discontinues antibiotic therapy -Discussed with Bernice limitations of prolonged antibiotic therapy including adverse effects, Cdiff colitis, would not want to continue to give prolonged courses of antibiotic therapy. Indeed, diagnosisof Lyme disease is still highly in question and her response to antibiotic therapy does not cement this diagnosis in place -If she has an immediate recurrence of severe symptoms of brain fog, headache, myalgias after discontinuation of antibiotic therapy, would resume cefuroxime 500 mg po bid and schedule clinic visit for potentially starting IV antibiotic therapy with ceftriaxone 2 g IV q24 x 28 days, but again, I am notsure if there is any long-term benefit of this -I remain concerned that Bernice has a underlying psychiatric comorbidity that is not being appropriately addressed -RTC prn Thank you for allowing us to see this patient in consultation. We will continue to follow with you. Please do not hesitate to call for further questions or concerns documented in this encounter Plan of Treatment Date Type Specialty Care Team Description 01/07/2020 Office Visit Neurology Sole Wilson MD [address] [facility] 4th Floor [address] [place] [address] [phone] Health Maintenance Due Date Last Done Comments HIV Screening 1998 Cervical Cancer Screening 5 years 2006 DTaP,Tdap,and Td Vaccines (2 - 10/23/2014 09/25/2014 Tdap) Varicella Vaccines (1 of 2 - 08/25/2015 2-dose childhood series) Influenza Vaccine 06/25/2019 Pneumococcal Vaccine: 65+ Years (1 2050 of 2 - PCV13) MMR Vaccines Completed 07/28/2015 HIB Vaccines Aged Out No longer eligible based on patient's age to complete this topic Hepatitis A Vaccines Aged Out No longer eligible based on patient's age to complete this topic Hepatitis B Vaccines Aged Out No longer eligible based on patient's age to complete this topic IPV Vaccines Aged Out No longer eligible based on patient's age to complete this topic Pneumococcal Vaccine: Pediatrics Aged Out No longer eligible based on (0 to 5 Years) and At-Risk patient's age to complete Patients (6 to 64 Years) this topic documented as of this encounter Results Not on filedocumented in this encounter Visit Diagnoses Diagnosis Lyme disease - Primary Chronic fatigue syndrome documented in this encounter
--- OUTSIDE RECORDS SUMMARY | 2019-12-09 21:57 | XMS REPORT | Continuity of Care Document ---
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 [phone] Problems Active Problems Provider Date Chest pain Sophia Sandoval PA-C Onset: 11/06/2019 Sore throat symptom Sophia Sandoval PA-C Onset: 11/06/2019 Social History Type Date Description Comments Sex Unknown Tobacco Use Start: Unknown Patient has never smoked Smoking Status Reviewed: 11/06/19 Patient has never smoked Allergies, Adverse Reactions, Alerts Description No Known Drug Allergies Medications Active Medications SIG Qnty Indications Ordering Provider Date Sucralfate 1 g by mouth 3-4 400ml R07.0 Hetal 11/06/2019 1GM/10ML times daily on an MD Be Suspension empty stomach for throat/stomach pain Alprazolam 1 tab by mouth 14tabs Kristan Potter NP 05/16/2019 0.25mg twice a day as 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 take one tablet 90tabs Kristan Potter NP 15mg Tablets by mouth three times a day Doxycycline Hyclate bid-Lyme Disease Unknown 100mg Capsules History Medications Escitalopram Oxalate 1 by mouth every 30tabs Kristan Potter NP 05/16/2019 - 10mg day 11/06/2019 Tablets Immunizations CPT Code Status Date Vaccine Lot # [id number] Refused 06/20/2018 Influenza Virus Vaccine, Quadrivalent, Split, Preservative Free Vital Signs Date Vital Result Comment 11/06/2019 8:07am Height 62 inches 5'2" Weight 108.00 lb BP Systolic 105 mmHg BP Diastolic 68 mmHg Heart Rate 84 /min BMI (Body Mass Index) 19.8 kg/m2 Results Test Acquired Date Facility Test Result H/L Range Note Laboratory test 07/08/2019 [facility] Culture Stool E <pending> finding Coli O157:H7 Occult Blood 07/08/2019 [facility] Z#Other <pending> Diagnos Observations Laboratory test 07/08/2019 [facility] C Difficile PCR <pending> finding Unspec Spec Laboratory test 07/08/2019 [facility] Stool <pending> finding Calprotectin Laboratory test 06/18/2019 [facility] C Difficile PCR <pending> finding Unspec Spec Lab Results 06/18/2019 N2N/CCD Import C Difficile PCR See Result 1 Below 1 SEE RESULT BELOW Name: SERINA LOCKWOOD : [address]: Aldo Urrutia MD Acct: [id number] Unit: [id number] AGE: 34 Location: [facility] [place] Re06/18/19 SEX: F Status: REG REF SPEC: [id number] TAYLA: 06/18/19-[address] [facility] [address]: Aldo Urrutia MD REQ: [id number] RECD: 06/18/19120 STATUS: COMP _ SOURCE: STOOL SPDESC: ORDERED: C. diff PCR Procedure Result Reported Site Stool Specimen Description Final 06/18/19- 1340 ML Stool Color Brown Stool Form Nonformed Stool Consistency Mucoid Liquid C. difficile PCR Final 06/18/19- 1424 ML Organism 1 027 Presumptive NEGATIVE Organism 2 Toxigenic C.diff NEGATIVE * ML - Main Lab . END OF REPORT DEPARTMENT OF PATHOLOGY, [address] [place] [address] Byron Eric M.D. Director [facility] # [id number] Procedures Description No Information Available Medical Devices Description No Information Available Encounters Description No Information Available Assessments Date Code Description Provider 11/06/2019 R07.0 Pain in throat Sophia Sandoval PA-C 11/06/2019 R07.89 Other chest pain Sophia Sandoval PA-C Plan of Treatment Future Appointment(s):11/07/2019 9:30 am - Kartik Marina MD at [facility]11/06/2019 - DREW Yanez07.0 Pain in throatNew Medication:Sucralfate 1 GM/10ML - 1 g by mouth 3-4 times daily on an empty stomach for throat/stomach painR07.89 Other chest pain Functional Status Description No Information Available Mental Status Description No Information Available Referrals Description No Information Available
--- OUTSIDE RECORDS SUMMARY | 2019-12-09 21:57 | XMS REPORT | Continuity of Care Document ---
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 Medicine Problems Description No Information Available Social History Type Date Description Comments Sex Unknown Tobacco Use Start: Unknown Never Smoked Cigarettes Tobacco Use Start: Unknown Never Smoked Cigars Tobacco Use Start: Unknown Never Smoked A Pipe Smokeless Tobacco Never Used Smokeless Tobacco ETOH Use Currently rarely consumes alcohol Tobacco Use Start: Unknown Patient has never smoked Smoking Status Reviewed: 11/04/19 Patient has never smoked Allergies, Adverse Reactions, Alerts Description No Known Drug Allergies Medications Active Medications SIG Qnty Indications Ordering Provider Date Dexilant Take 1 tablet 30caps A69.22 Favian Dempsey 11/04/2019 30mg Capsules every day MD GERMAN Barnes Sucralfate Take 1 tablet 1 20tabs A69.22 Favian Dempsey 11/04/2019 1gm Tablets hour before meals MD Molly and bedtime PHILOSOPHY SPECIALIST Thyroid Take One Tablet Unknown 15mg Tablets By Mouth Three Times A Day Vitamin D as directed Unknown 2000Unit Tablets [facility] Vitamin B12 daily Unknown 1000mcg Tablets Probiotic 1 by mouth every Unknown Capsules day Magnesium 1 by mouth every Unknown 500mg day Capsules Adrenal C Formula daily Unknown Tablets Doxycycline Hyclate Unknown 100mg Capsules Alprazolam Rachel Anaya 0.25mg Maryann, R.DVon Tablets History Medications Penicillin V 500 mg 3 times 30tabs J32.9 Tico Wyatt MD 07/01/2019 - Potassium a day 11/03/2019 500mg Tablets Immunizations Description No Information Available Vital Signs Date Vital Result Comment 11/04/2019 8:52am Weight 113.00 lb Weight 51.257 kg Height 62 inches 5'2" Height in cm's 157.5 cm BMI (Body Mass Index) 20.7 kg/m2 07/01/2019 9:37am Weight 113.00 lb Weight 51.257 kg Height 62 inches 5'2" Height in cm's 157.5 cm BMI (Body Mass Index) 20.7 kg/m2 Results Description No Information Available Procedures Date Code Description Status 11/04/2019 47716 Fiberoptic Laryngoscopy Completed 07/01/2019 51846 Nasal Endoscopy, Diagnostic Completed Medical Devices Description No Information Available Encounters Type Date Location Provider Dx Diagnosis Office Visit 11/04/2019 Edwin Dickey K21.0 Gastro-esophageal 8:45a 09-25-2019 [place] reflux disease with esophagitis 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.22 Other neurologic disorders in Lyme disease Office Visit 07/05/2019 11:30a [place],After 09/25/07 Tico Wyatt J31.0 Chronic MD rhinitis G50.1 Atypical facial pain Office Visit 07/01/2019 9:15a [place],After 09/25/07 Tico Wyatt J31.0 Chronic MD rhinitis J32.9 Chronic sinusitis, unspecified Assessments Date Code Description Provider 11/04/2019 K21.0 Gastro-esophageal reflux disease with Esme Dickey PA-C esophagitis 11/04/2019 A69.22 Other neurologic disorders in Lyme disease Esme Dickey PA-C 07/05/2019 J31.0 Chronic rhinitis Tico Wyatt MD 07/05/2019 G50.1 Atypical facial pain Tico Wyatt MD 07/01/2019 J31.0 Chronic rhinitis Tico Wyatt MD 07/01/2019 J32.9 Chronic sinusitis, unspecified Tico Wyatt MD Plan of Treatment 11/04/2019 - DARREN VillalbaCK21.0 Gastro-esophageal reflux disease with mgljneukzgsG08.22 Other neurologic disorders in Lyme diseaseNew Medication: Dexilant 30 mg - Take 1 tablet every daySucralfate 1 gm - Take 1 tablet 1 hour before meals and bedtime Functional Status Description No Information Available Mental Status Description No Information Available Referrals Refer to Reason for Referral Status Appt Date Lauro Guevara DDS Please consult and treat two roots of molar Created tooth extending into the Left Maxillary Sinus seen on CT scan [address] [place] [address] [phone]
--- OUTSIDE RECORDS SUMMARY | 2019-12-09 21:57 | XMS REPORT | Continuity of Care Document ---
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 Problems Description No Information Available Social History Type Date Description Comments Sex Unknown Tobacco Use Start: Unknown Patient has never smoked Smoking Status Reviewed: 07/12/19 Patient has never smoked Allergies, Adverse Reactions, Alerts Description No Known Drug Allergies Medications Active Medications SIG Qnty Indications Ordering Date Provider CBD 50MG by mouth every Rachel Anaya, 11/28/2019 day Madhav Wolf VSL#3 1 po qd 30caps Rachel Anaya, 11/28/2019 112.5Bil Capsules Madhav Wolf Low Dose Naltrexone 4 mg daily 30units A69.20 Rachel Anaya, 11/28/2019 Madhav Wolf Monolurin half scoop of Rachel Anaya, 11/04/2019 pellets 2times Madhav Wolf daily PEST LOCATOR Thyroid 1 tablet by mouth 90tabs Rachel Anaya, 09/12/2019 30mg Tablets three times daily Maryann RTj Alprazolam 1 tab by mouth 14tabs Rachel Anaya, 05/16/2019 0.25mg twice a day as Madhav Wolf Tablets needed Vitamin B Complex 1 per day Unknown Tablets Probiotic Unknown Capsules Vitamin D3 prn Unknown Capsules Magnesium 1 by mouth every Unknown Capsules day Progesterone day 14-28 of Unknown Compounding Kit menstral cycle 20% Cream Azithromycin Unknown 250mg Tablets Cefuroxime Axetil Unknown 500mg Tablets Grapefruit Seed 1 by mouth every Unknown Extract "Defence day Plus" History Medications Amoxicillin/Clavulanate take 1 tablet by 14tabs Kristan 09/26/2019 - Potassium mouth twice daily SABIHA Potter 10/08/2019 875-125mg Tablets for 7 days for tonsillitis Medications Administered in Office Medication SIG Qnty Indications Ordering Provider Date TB,Intradermal (PPD, Mantoux) [facility] 09/11/2018 Injection Immunizations CPT Code Status Date Vaccine Lot # [id number] Refused 10/08/2019 Influenza Virus Vaccine, Quadrivalent, 3 Yr > Quad , Preserv Free [id number] Refused 09/26/2019 Influenza Virus Vaccine, Quadrivalent, 3 Yr > Quad , Preserv Free [id number] Refused 09/12/2019 Influenza Virus Vaccine, Quadrivalent, 3 Yr > Quad , Preserv Free [id number] Refused 06/20/2018 Influenza Virus Vaccine, Quadrivalent, 3 Yr > Quad , Preserv Free Vital Signs Date Vital Result Comment 11/28/2019 11:48am Weight 108.00 lb Weight 48.989 kg BP Systolic 100 mmHg BP Diastolic 60 mmHg Heart Rate 98 /min Body Temperature 99.1 F Respiratory Rate 16 /min O2 % BldC Oximetry 100 % 11/04/2019 11:51am Weight 108.00 lb Weight 48.989 kg BP Systolic 104 mmHg BP Diastolic 60 mmHg Heart Rate 87 /min Body Temperature 98.8 F Respiratory Rate 16 /min O2 % BldC Oximetry 98 % Results Test Acquired Date Facility Test Result H/L Range Note Laboratory test 11/07/2019 [facility] Clotest SEE RESULT 1 finding [phone] BELOW CBC Auto Diff 10/08/2019 [facility] White Blood 6.1 Normal 3.5-10.8 [phone] Count 10^3/uL Red Blood Count 4.79 10^6/uL Normal 3.70-4.87 Hemoglobin 13.9 g/dL Normal 12.0-16.0 Hematocrit 40 % Normal 35-47 Mean Corpuscular Volume 84 fL Normal 80-97 Mean Corpuscular Hemoglobin 29 pg Normal 27-31 Mean Corpuscular HGB Conc 34 g/dL Normal 31-36 Red Cell Distribution Width 13 % Normal 10-15 Platelet Count 278 10^3/uL Normal 150-450 Mean Platelet Volume 8.4 fL Normal 7.4-10.4 Abs Neutrophils 4.4 10^3/uL Normal 1.5-7.7 Abs Lymphocytes 1.4 10^3/uL Normal 1.0-4.8 Abs Monocytes 0.3 10^3/uL Normal 0-0.8 Abs Eosinophils 0.0 10^3/uL Normal 0-0.6 Abs Basophils 0.0 10^3/uL Normal 0-0.2 Abs Nucleated RBC 0.0 10^3/uL Granulocyte % 72.6 % Lymphocyte % 22.5 % Monocyte % 4.2 % Eosinophil % 0.2 % Basophil % 0.5 % Nucleated Red Blood Cells % 0.1 Comp Metabolic 10/08/2019 [facility] Sodium 138 mmol/ L Normal 135-145 Panel [phone] Potassium 4.2 mmol/L Normal 3.5-5.0 Chloride 103 mmol/L Normal 101-111 Co2 Carbon Dioxide 26 mmol/L Normal 22-32 Anion Gap 9 mmol/L Normal 2-11 Glucose 75 mg/dL Normal 70-100 Blood Urea Nitrogen 13 mg/dL Normal 6-24 Creatinine 0.67 mg/dL Normal 0.51-0.95 BUN/Creatinine Ratio 19.4 Normal 8-20 Calcium 9.6 mg/dL Normal 8.6-10.3 Total Protein 7.3 g/dL Normal 6.4-8.9 Albumin 4.7 g/dL Normal 3.2-5.2 Globulin 2.6 g/dL Normal 2-4 Albumin/Globulin Ratio 1.8 Normal 1-3 Total Bilirubin 0.60 mg/dL Normal 0.2-1.0 Alkaline Phosphatase 28 U/L Low 34-104 Alt 10 U/L Normal 7-52 Ast 14 U/L Normal 13-39 Egfr Non- 100.8 >60 Egfr 121.9 >60 2 Laboratory test 10/08/2019 [facility] Hemoglobin A1c 5.0 % Normal 4.0-5.6 3 finding [phone] Lyme Screen W/ Reflex To WB Negative Negative Tick-Borne 10/08/2019 [facility] Anaplasma <1:64 < 1:64 4 Disease AB [phone] phagocytophilium titer Panel Babesia microti IgG Ab, S <1:64 titer <1:64 5 Ehrlichia chaffeensis IgG AB <1:64 titer <1:64 6 Lyme Disease Serology Negative Negative 7 Laboratory 10/08/2019 [facility] TSH (Thyroid 2.24 Normal 0.34-5.60 test finding [phone] Stim Horm) mcIU/mL T3 Total 104 ng/dL Normal 87-178 Free T4 (Free Thyroxine) 0.98 ng/dL Normal 0.61-1.12 Ebv Kristin Rivera 10/08/2019 [facility] Ebv Capsid Positive Negative Comprehensive [phone] Ag IgG Ab Ebv Capsid Ag IgM Ab Negative Negative Kristin-Rivera Nuclear Antigen Positive Negative Kristin-Rivera Virus Interp See Comment 8 Laboratory test finding 09/26/2019 [facility] Strep Screen NEG Neg (607)- - Urine DIP 09/12/2019 [facility] Leukocytes neg Neg (607)- - Urine Nitrites neg Neg Urobilinogen norm Norm Total Protein Urine neg Neg Urine pH 6.0 5-6 Urine Blood neg Neg Specific Creede 1.02 1.01-1.02 Urine Ketones neg Neg Urine Bilirubin neg Neg Urine Glucose norm Norm Laboratory 09/12/2019 [facility] TSH (Thyroid 2.65 Normal 0.34-5.60 9, test finding [phone] Stimulating mcIU/mL 10 Horm) Total T3 117 ng/dL Normal 87-178 11 Free T4 0.75 ng/dL Normal 0.61-1.12 12 Thyroperoxidase AB 231.98 IU/mL High <9 13 Vitamin B12 1142 pg/mL High 180-914 14 Vitamin D Total 25(Oh) 30.2 ng/mL Normal 20-50 15 Free T3 3.90 pg/mL Normal 2.5-3.9 16 Laboratory test 07/12/2019 [facility] Rubella Immune Immune 17, 18 finding [phone] Screen Rubeola Measles 07/12/2019 [facility] Rubeola Negative 19 Igg AB [phone] (Measles) IgG Antibody Rubeola IgG Antibody Index 0.7 20 Mumps Igg 07/12/2019 [facility] Mumps Virus IgG Positive 21 [phone] Antibody Mumps IgG Antibody Index 3.1 22 Laboratory test 06/18/2019 [facility] C Difficile PCR SEE RESULT 23 [id number] [phone] BELOW 1 SEE RESULT BELOW Name: BERNICE LOCKWOOD : [address]: Kartik Marina MD Acct: [id number] Unit: [id number] AGE: 34 Location: [facility] Re11/07/19 SEX: F Status: DEP REF SPEC: [id number] TAYLA: 11/07/19-[address] [facility] [address]: Kartik Marina MD REQ: [id number] RECD: 11/07/19 STATUS: J[facility] PORRAS DR: Rachel Hernandez PA _ SOURCE: GAS ANTRUM SPDESC: ORDERED: Clotest Procedure Result Reported Site Clotest Final 11/08/19- 08 ML Clotest Negative * - [facility] . END OF REPORT DEPARTMENT OF PATHOLOGY, [address] [place] [address] Byron Eric M.D. Director [facility] # [id number] 2 Because ethnic data is not always readily available, this report includes an eGFR for both -Americans and non- Americans. The National Kidney Disease Education Program (NKDEP) does not endorse the use of the MDRD equation for patients that are not between the ages of 18 and 70, are , have extremes of body size, muscle mass, or nutritional status, or are non- or non-. According to the National Kidney Foundation, irrespective of diagnosis, the stage of the disease is based on the level of kidney function: Stage Description GFR(mL/min/1.73 m(2)) 1 Kidney damage with normal or decreased GFR 90 2 Kidney damage with mild decrease in GFR 60-89 3 Moderate decrease in GFR 30-59 4 Severe decrease in GFR 15-29 5 Kidney failure <15 (or dialysis) 3 Therapeutic target for the treatment of diabetes mellitus patients is <7% HBA1C, and in selective patients <6.0%. Please refer to [place] Diabetes Association diabetic care guidelines for further information. 4 ADDITIONAL INFORMATION This test was developed using an analyte specific reagent. Its performance characteristics were determined by [facility] in a manner consistent with CLIA requirements. This test has not been cleared or approved by the U.S. Food and Drug Administration. 5 ADDITIONAL INFORMATION This test was developed using an analyte specific reagent. Its performance characteristics were determined by [facility] in a manner consistent with CLIA requirements. This test has not been cleared or approved by the U.S. Food and Drug Administration. 6 ADDITIONAL INFORMATION This test was developed using an analyte specific reagent. Its performance characteristics were determined by [facility] in a manner consistent with CLIA requirements. This test has not been cleared or approved by the U.S. Food and Drug Administration. 7 No evidence of antibodies to B. burgdorferi detected. False negative results may occur in recently infected patients (<=2 weeks) due to low or undetectable antibody levels to B. burgdorferi. If recent exposure is suspected, a second sample should be collected and tested in 2-4 weeks. Test Performed by: [facility] [place] [address] Motorman/Woman: Dyllan Armendariz M.D. Ph.D.; CLIA# [id number] RESULT: Results suggest past infection. ADDITIONAL INFORMATION In most populations, at least 90% of the adult population will have been infected with EBV sometime in the past and therefore, will be positive for anti-VCA/IgG and anti- EBNA. Antibodies to EBNA develop 6-8 weeks after primary infection and remain present for life. Presence of VCA/ IgM antibodies indicates recent primary infection with EBV. Test Performed by: [facility] [place] [address] Motorman/Woman: Dyllan Armendariz M.D. Ph.D.; CLIA# [id number] 9 [id number] 10 [id number] 11 [id number] 12 [id number] 13 [id number] 14 Normal Range 180 to 914 Indeterminate Range 145 to 180 Deficient Range <145 15 Total 25-Hydroxyvitamin D2 and D3 (25-OH-VitD) <10 ng/mL (severe deficiency) 10-19 ng/mL (mild to moderate deficiency) 20-50 ng/mL (optimum levels) 51-80 ng/mL (increased risk of hypercalciuria) >80 ng/mL (toxicity possible) 16 [id number] 17 [id number] 18 [id number] 19 REFERENCE VALUE Vaccinated: Positive (>=1.1 AI) Unvaccinated: Negative (<=0.8 AI) 20 Test Performed by: [facility] [employer] [address] [place] [address] Motorman/Woman: Dyllan Armendariz M.D. Ph.D.; CLIA# [id number] 21 Results suggest response to immunization or prior exposure to the virus. REFERENCE VALUE Vaccinated: Positive (>=1.1 AI) Unvaccinated: Negative (<=0.8 AI) 22 Test Performed by: [facility] [employer] [address] [place] [address] Motorman/Woman: Dyllan Armendariz M.D. Ph.D.; CLIA# [id number] 23 SEE RESULT BELOW Name: BERNICE LOCKWOOD : [address]: Aldo Urrutia MD Acct: [id number] Unit: [id number] AGE: 34 Location: [facility] Re06/18/19 SEX: F Status: REG REF SPEC: [id number] TAYLA: 06/18/19-[address]: Aldo Urruita MD REQ: [id number] RECD: 06/18/19 STATUS: COMP _ [facility] ORDERED: C. diff PCR Procedure Result Reported Site Stool Specimen Description Final 06/18/19- 1340 ML Stool Color Brown Stool Form Nonformed Stool Consistency Mucoid Liquid C. difficile PCR Final 06/18/19- 1424 ML Organism 1 027 Presumptive NEGATIVE Organism 2 Toxigenic C.diff NEGATIVE * ML - Main Lab . END OF REPORT DEPARTMENT OF PATHOLOGY, [address] [place] [address] Byron Eric M.D. Director [facility] # [id number] Procedures Description No Information Available Medical Devices Description No Information Available Encounters Type Date Location Provider Dx Diagnosis Office Visit 11/28/2019 [facility] Rachel Anaya, A69.20 Lyme disease, 11:30a Maryann, R.D. unspecified E72.12 Methylenetetrahydrofolate reductase deficiency Office Visit 11/04/2019 Main Office Rachel Anaya, K21.0 Gastro- esophageal 11:45a Maryann, R.D. reflux disease with esophagitis A69.20 Lyme disease, unspecified Office Visit 10/08/2019 10:15a [facility] Rachel Anaya M.D., R51 Headache R.D. R42 Dizziness and giddiness Office Visit 09/26/2019 11:15a [facility] Kristan J03.90 Acute tonsillitis, Tariq, PEST LOCATOR unspecified F41.9 Anxiety disorder, unspecified N60.01 Solitary cyst of right breast Office Visit 09/12/2019 3:30p [facility] Kristan Potter, E06.3 Autoimmune PEST LOCATOR thyroiditis Office Visit 07/26/2019 2:30p [facility] Kristan Potter, F41.9 Anxiety disorder, PEST LOCATOR unspecified R19.7 Diarrhea, unspecified F90.0 Attn-defct hyperactivity disorder, predom inattentive type E06.3 Autoimmune thyroiditis R53.82 Chronic fatigue, unspecified Office Visit 07/12/2019 1:15p [facility] Kristan Potter, Z00.00 Encntr for PEST LOCATOR general adult medical exam w/o abnormal findings Z01.84 Encounter for antibody response examination R19.7 Diarrhea, unspecified K13.79 Other lesions of oral mucosa Office Visit 07/08/2019 11:15a Main Office Kristan Tariq, R19.7 Diarrhea, PEST LOCATOR unspecified F41.9 Anxiety disorder, unspecified K13.79 Other lesions of oral mucosa Office Visit 06/18/2019 9:00a [facility] Aldo Urrutia, R19.7 Diarrhea , M.D. unspecified Assessments Date Code Description Provider 11/28/2019 A69.20 Lyme disease, unspecified Rachel Anaya M.D., R.D. 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 11/04/2019 K21.0 Gastro-esophageal reflux disease with Rachel Anaya M.D., esophagitis R.D. 11/04/2019 A69.20 Lyme disease, unspecified Rachel Anaya M.D., R.D. 10/08/2019 R51 Headache Rachel Anaya M.D., R.D. 10/08/2019 R42 Dizziness Rachel Anaya M.D., R.D. 09/26/2019 J03.90 Acute tonsillitis, unspecified Kristan Potter, PEST LOCATOR 09/26/2019 F41.9 Anxiety disorder, unspecified Kristan Tariq, PEST LOCATOR 09/26/2019 N60.01 Solitary cyst of right breast Kristan Potter, PEST LOCATOR 09/12/2019 E06.3 Autoimmune thyroiditis Kristan Potter, PEST LOCATOR 07/26/2019 F41.9 Anxiety disorder, unspecified Kristan Potter, PEST LOCATOR 07/26/2019 R19.7 Diarrhea, unspecified Kristan Potter, PEST LOCATOR 07/26/2019 F90.0 Attention-deficit hyperactivity disorder, Kristan Potter, PEST LOCATOR predominantly inat 07/26/2019 E06.3 Autoimmune thyroiditis Kristan Potter, PEST LOCATOR 07/26/2019 R53.82 Chronic fatigue, unspecified Kristan Potter, PEST LOCATOR 07/12/2019 Z00.00 Encounter for general adult medical Kristan Potter, PEST LOCATOR examination without abnormal findings 07/12/2019 Z01.84 Encounter for antibody response Kristan Potter, PEST LOCATOR examination 07/12/2019 R19.7 Diarrhea, unspecified Kristan Potter, PEST LOCATOR 07/12/2019 K13.79 Other lesions of oral mucosa Kristan Potter, PEST LOCATOR 07/08/2019 R19.7 Diarrhea, unspecified Kristan Tariq, PEST LOCATOR 07/08/2019 F41.9 Anxiety disorder, unspecified Kristan Potter, PEST LOCATOR 07/08/2019 K13.79 Other lesions of oral mucosa Kristna Potter, PEST LOCATOR 06/18/2019 R19.7 Diarrhea, unspecified Aldo Urrutia M.D. Plan of Treatment Future Appointment(s):01/31/2020 3:30 pm - Rachel An[facility] M.D[facility] - Rachel Anaya M.D., R.D.A69.20 Lyme disease, unspecifiedNew Medication:Low Dose Naltrexone - 4 mg stabuN56.12 Methylenetetrahydrofolate reductase deficiency Functional Status Description No Information Available Mental Status Description No Information Available Referrals Refer to Reason for Referral Status Appt Date [facility] Referral to [facility] Neurology Patient Declined for evaluation - headache and vision changes. - - Please contact Pt to schedule appt. - - Please fax appointment date/time to [facility], . [facility] [address] [place] [address] [phone] Krystina Sandoval Referral to [facility] for consult. Patient Declined 07/11/2019 [facility] [address] [address] [phone] Lauro Guevara Plan refer to maxillofacial surgeon for Scheduled 2018 further evaluation/treatment. [facility] [address] [facility], [address] [place] [address] [phone]
--- OUTSIDE RECORDS SUMMARY | 2019-12-09 21:57 | XMS REPORT | Continuity of Care Document ---
:1985 External Reference #:[id number] Author Name GARRETT Ferraro (transmitted by agent of provider December) Address [address] [facility] [facility], [place] [address] Care Team Providers Name Role Phone Rachel Anaya MD - Family Care Team Information Gm Video [phone] Medicine Problems Description No Information Available Social History Type Date Description Comments Sex Unknown Tobacco Use Start: Unknown Never Smoked Cigarettes ETOH Use Occasionally consumes 1-3 drinks weekly alcohol previous alcohol intake: mild Tobacco Use Start: Unknown Patient has never smoked Recreational Drug Use Never Used Drugs Smoking Status Reviewed: 11/19/19 Patient has never smoked Exercise Type/Frequency Exercises regularly walkinx weekly for 30-60 minutes light weight liftin-4x monthly 45 minute duration stretching hockey: once monthly 75 minutes Allergies, Adverse Reactions, Alerts Description No Known Drug Allergies Medications Active Medications SIG Qnty Indications Ordering Date Provider Progesterone Milled Progesterone cream 15grams N94.3 Elma 08/05/2019 75 mg/gram 1/2 GARRETT Hernandez Powder gram bid days 12- SKEIN DYER Thyroid Unknown 15mg Tablets Vitamin B-12 1 by mouth every Unknown Natural day (takes 5000mg 500mcg daily) Tablets Vitamin D 1 by mouth every Unknown 2000Unit day in winter Capsules (dosage unspecified)(not taking currently) Probiotic 1 by mouth every Unknown Capsules day (2 billion cfu) Super Shawnee 3 daily Unknown Epa/Dha 1000mg Capsules Magnesium 1 every day Unknown 400mg Tablets Alprazolam prn Kristan Potter, 0.25mg F.N.P. Tablets Adrenal Unknown 200mg Capsules Licorice Unknown (Glycyrrhiza Glabra) 450mg Capsules Cefuroxime Axetil 1 tabs by mouth Unknown twice a day for 14 500mg Tablets days Monolaurian 1/2 scoop daily Unknown CBD Oil 15 ml daily Unknown Immunizations Description No Information Available Vital Signs Date Vital Result Comment 11/19/2019 8:49am Height 62 inches 5'2" Weight 110.38 lb Heart Rate 84 /min BP Systolic 97 mmHg BP Diastolic 65 mmHg Body Temperature 97.0 F O2 % BldC Oximetry 100 % BMI (Body Mass Index) 20.2 kg/m2 10/08/2019 4:11pm Height 62 inches 5'2" Weight 117.00 lb Heart Rate 103 /min BP Systolic 107 mmHg BP Diastolic 75 mmHg Body Temperature 97.4 F O2 % BldC Oximetry 100 % BMI (Body Mass Index) 21.4 kg/m2 Results Test Acquired Date Facility Test Result H/L Range Note Laboratory test 11/07/2019 [facility] Clotest SEE RESULT [address] [place] [address] [phone] CBC Auto Diff 10/08/2019 [facility] White Blood 6.1 10^3/uL Normal 3.5-10.[address] [place] [address] [phone] Red Blood Count 4.79 10^6/uL Normal 3.70-4.87 [...] Blood Cells % 0.1 Comp Metabolic 10/08/2019 [facility] Sodium 138 mmol/L Normal 135-[address] [place] [address] [phone] Potassium 4.2 mmol/L Normal 3.5-5.0 Chloride 103 [...] 100.8 >60 Egfr 121.9 >60 2 Laboratory 10/08/2019 [facility] Free T4 (Free 0.98 Normal 0.61-1.[address] Thyroxine) ng/[place] [address] [phone] T3 Total 104 ng/dL Normal 87-178 TSH (Thyroid Stim Horm) 2.24 mcIU/mL Normal 0.34-5.60 Cytology 08/30/2019 [facility] Cytology SEE RESULT BELOW 3 , [address] [place] [address] [phone] PDFReport SEE IMAGE 1 SEE RESULT BELOW Name: BERNICE LOCKWOOD : [address]: Kartik Marina MD Acct: [id number] Unit: [id number] AGE: 34 Location: [facility] Re11/07/19 SEX: F Status: DEP REF SPEC: [id number] TAYLA: 11/07/19-[address] [facility] [address]: Kartik Marina MD REQ: [id number] RECD: 11/07/19 STATUS: [facility] DR: Rachel Hernandez PA _ SOURCE: GAS ANTRUM SPDESC: ORDERED: Clotest Procedure Result Reported Site Clotest Final 11/08/19- 08 ML Clotest Negative * ML - Main Lab . END OF REPORT DEPARTMENT OF PATHOLOGY, [address] [place] [id number] Byron Eric M.D. Director [facility] # [id number] 2 Because ethnic data is not always [...] 5 Kidney failure <15 (or dialysis) 3 [id number] 4 SEE RESULT BELOW Name: BERNICE LOCKWOOD : [address]: Vandana Greene NP, CNM Acct: [id number] Unit: [id number] AGE: 34 Location: [facility] Re08/30/19 SEX: F Status: REG REF SPEC: [id number] TAYLA: 08/30/19-[address] [facility] [address]: Vandana Greene NP, CNM REQ: [id number] RECD: 08/30/19 STATUS: SOUT _ ORDERED: TP IMAGE ANALYS, HPV/Thin Prep, HPV 16/18 GENE COMMENTS: [id number] FINAL DIAGNOSIS Negative for Intraepithelial lesion or Malignancy HPV RESULTS Date Time Test Result Flag (u) Normal Range 08/30/19 0844 HPV TYLER RFLX GE Negative Negative The high-risk HPV types detected by the assay include: 16, 18, 31, 33, 35, 39, 45, 51, 52, 56, 58, 59, 66, and 68. SPECIMEN(S) RECEIVED A. Ectocervical/Endocervical CYTOLOGY ADEQUACY Specimen Adequacy: Satisfactory of evaluation Transformation zone component identified CONTINUED ON NEXT PAGE DEPARTMENT OF PATHOLOGY, [address] [place] [address] Byron Eric M.D. Director [facility] # [id number] CYTOLOGY PATIENT INFORMATION Patient Information: HPV: High risk HPV RNA testing regardless of pap results. HPV 16/18 Genotype Reflex Actual Specimen Date: 08/30/19 LMP If Unknown: Last Menstrual Period Not Given. ?: N Post Menopausal?: N Hysterectomy?: N Previous Abnormal Pap Smears?:N Signed by and Reported on: YAIMA Del Castillo (ASCP) 1202 This Pap test was evaluated with the assistance of the [employer] Test Imaging System. Due to cytologic findings at the medical nurse microscope, comprehensive manual rescreening by a Specialist Managers may be required. The Pap Smear is a screening test designed to aid in the detection of premalignant and malignant conditions of the uterine cervix. It is not a diagnostic procedure and should not be used as the sole means of detecting cervical cancer. Both false- positive and false- negative reports do occur. Depending on your risk status, a Pap smear should be obtained and evaluated every 1-3 years. END OF REPORT DEPARTMENT OF PATHOLOGY, [address] [place] [address] Byron Eric M.D. Director [facility] # [id number] Procedures Description No Information Available Medical Devices Description No Information Available Encounters Type Date Location Provider Dx Diagnosis Office Visit 11/19/2019 [facility] Elma F41.9 Anxiety disorder, 8:30a [facility] GARRETT Hernandez unspecified A69.20 Lyme disease, unspecified Office Visit 10/08/2019 4:00p [facility] GARRETT Ferraro R51 Headache [facility] F41.9 Anxiety disorder, unspecified R20.2 Paresthesia of skin Office Visit 08/30/2019 8:00a [facility] Vandana Greene, Z01.419 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 for partner alliance 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 [facility] 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 DEMONSTRATOR-Cde exam (general) (routine) w/o abn findings N64.59 Other signs and symptoms in breast N81.89 Other female genital prolapse 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 Office Visit 08/05/2019 2:00p [facility] Elma Hernandez N94.3 Premenstrual [facility] GARRETT tension syndrome G50.1 Atypical facial pain R53.83 Other fatigue R19.7 Diarrhea, unspecified Office Visit 07/11/2019 1:00p [facility] Elma Hernandez N94.3 Premenstrual [facility] GARRETT tension syndrome R19.7 Diarrhea, unspecified G50.1 Atypical facial pain D50.9 Iron deficiency anemia, unspecified Assessments Date Code Description Provider 11/19/2019 F41.9 Anxiety disorder, unspecified GARRETT Ferraro 11/19/2019 A69.20 Lyme disease, unspecified Elma Hernandez, PA 10/08/2019 R51 Headache Elma Hernandez, PA 10/08/2019 F41.9 Anxiety disorder, unspecified Elma Hernandez, PA 10/08/2019 R20.2 Paresthesia of skin Elma Hernandez, PA 08/30/2019 Z01.419 Encounter for gynecological examination WILBERT Mendez-Cdfranki (general) (routine) without abnormal findings 08/30/2019 N64.59 Other signs and symptoms in breast WILBERT Mendez-Cdfranki 08/30/2019 N81.89 Other female genital prolapse WILBERT Mendez-Cdfranki 08/30/2019 I83.812 Varicose veins of left lower extremity with WILBERT Mendez-Cdfranki pain 08/05/2019 N94.3 Premenstrual tension syndrome Elma Hernandez, PA 08/05/2019 G50.1 Atypical facial pain Elma Hernandez, PA 08/05/2019 R53.83 Other fatigue Elma Hernandez, PA 08/05/2019 R19.7 Diarrhea, unspecified Elma Hernandez, PA 07/11/2019 N94.3 Premenstrual tension syndrome Elma Hernandez, PA 07/11/2019 R19.7 Diarrhea, unspecified Elma Hernandez, PA 07/11/2019 G50.1 Atypical facial pain Elma Hernandez, PA 07/11/2019 D50.9 Iron deficiency anemia, unspecified GARRETT Ferraro Plan of Treatment Future Appointment(s):02/18/2020 10:30 am - GARRETT Ferraro at [facility]01/14/2020 9:30 am - GARRETT Ferraro at [facility]12/19/2019 11:00 am - GARRETT Ferraro at [facility]11/19/2019 - [place] Hernandez, PAF41.9 Anxiety disorder, unspecifiedRecommendations:this is better. you still need to find a therapist, make this a goal in November. you have done lots ofreading.A69.20 Lyme disease, unspecifiedRecommendations:you will see the ID doctor today, use TAPPING/EFT before entering the building. we discussed my rolein your LYME care, supportive , can make herbal recommendations. Consider seeing Angie Montanez locally for Lyme care, can get supportive IV therapies. Functional Status Description No Information Available Mental Status Description No Information Available Referrals Refer to Dr Reason for Referral Status Appt Date Shelby Kelly PT, OCS Created [address] [place] [address] [phone] Serafin Bowie MD Sent [address] [place] [address] [phone]
--- OUTSIDE RECORDS SUMMARY | 2019-12-09 21:57 | XMS REPORT | Continuity of Care Document ---
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 Thyroid take one tablet 90tabs Kristan Potter NP 15mg Tablets by mouth three times a day Doxycycline Hyclate bid-Lyme Disease Unknown 100mg Capsules History Medications Escitalopram Oxalate 1 by mouth every 30tabs Kristan Potter NP 05/16/2019 - 10mg day 11/06/2019 Tablets Immunizations CPT Code Status Date Vaccine Lot # [id number] Refused 06/20/2018 Influenza Virus Vaccine, Quadrivalent, Split, Preservative Free Vital Signs Date Vital Result Comment 11/06/2019 8:07am Height 62 inches 5'2" Weight 108.00 lb BP Systolic 105 mmHg BP Diastolic 68 mmHg Heart Rate 84 /min BMI (Body Mass Index) 19.8 kg/m2 Results Test Acquired Date Facility Test Result H/L Range Note Laboratory test 11/07/2019 [facility] SEE RESULT 1, 2 finding Pathology Order BELOW Laboratory test 11/07/2019 [facility] Clotest SEE RESULT 3 finding BELOW Laboratory test 07/08/2019 [facility] Culture Stool [...] N2N/CCD Import C Difficile PCR See Result 4 Below 1 [id number] 2 SEE RESULT BELOW Name: SERINA LOCKWOOD : [address]: Kartik Marina MD Acct: [id number] Unit: [id number] AGE: 34 Location: [facility] Re11/07/19 SEX: F Status: DEP REF SPEC: [id number] TAYLA: 11/07/19- [facility] DR: Kartik Marina MD REQ: [id number] RECD: 11/07/19 STATUS: SOUT _ ORDERED: LEVEL 4 COMMENTS: [id number] FINAL DIAGNOSIS Duodenum, biopsy: -- Benign small intestinal mucosa with no significant pathologic abnormalities. -- No evidence of villous blunting or increased intraepithelial lymphocytes. CLINICAL HISTORY Odynophagia POST-OPERATIVE DIAGNOSIS EGD: esophagus - normal; gastric - normal; biopsy; duodenum - normal; biopsy GROSS DESCRIPTION The specimen is received in formalin labeled, Biopsy Duodenum, and consists of two schaffer-pink irregular soft tissue fragments measuring 0.3 x 0.2 by up to 0.2 cm and 0.3 x 0.3 x 0.2 cm which are submitted entirely in one cassette. Signed by and Reported on: Angie Rodriguez MD 11/08/19 1133 END OF REPORT DEPARTMENT OF PATHOLOGY, [address] [place] [address] Byron Eric M.D. Director [facility] # [id number] 3 SEE RESULT BELOW Name: SERINA LOCKWOOD : [address]: Kartik Marina MD Acct: [id number] Unit: [id number] AGE: 34 Location: [facility] Re11/07/19 SEX: F Status: DEP REF SPEC: [id number] TAYLA: 11/07/19-1011 [facility] DR: Kartik Marina MD REQ: [id number] RECD: 11/07/19 STATUS: [facility] DR: Rachel Hernandez PA _ SOURCE: GAS ANTRUM SPDESC: ORDERED: Clotest Procedure Result Reported Site Clotest Final 11/08/19- 821 ML Clotest Negative * ML - Main Lab . END OF REPORT DEPARTMENT OF PATHOLOGY, [address] [place] [address] Byron Eric M.D. Director [facility] # [id number] SEE RESULT BELOW Name: SERINA LOCKWOOD : [address]: Kartik Marina MD Acct: [id number] Unit: [id number] AGE: 34 Location: [facility] Re11/07/19 SEX: F Status: DEP REF SPEC: [id number] TAYLA: 11/07/19-1011 [facility] DR: Kartik Marina MD REQ: [id number] RECD: 11/07/19-1331 STATUS: COMP [facility] DR: Rachel Hernandez PA _ SOURCE: GAS ANTRUM SPDESC: ORDERED: Clotest Procedure Result Reported Site Clotest Final 11/08/19- 821 ML Clotest Negative * ML - Main Lab . END OF REPORT DEPARTMENT OF PATHOLOGY, [address] [place] [address] Byron Eric M.D. Director [facility] # [id number] SEE RESULT BELOW Name: SERINA LOCKWOOD : [address]: Kartik Marina MD Acct: [id number] Unit: [id number] AGE: 34 Location: [facility] Re11/07/19 SEX: F Status: DEP REF SPEC: [id number] TAYLA: 11/07/19-[address]: Kartik Marina MD REQ: [id number] RECD: 11/07/19-1331 STATUS: [facility] DR: Rachel Hernandez PA _ SOURCE: GAS ANTRUM SPDESC: ORDERED: Clotest Procedure Result Reported Site Clotest Final 11/08/19- 821 ML Clotest Negative * - Main Lab . END OF REPORT DEPARTMENT OF PATHOLOGY, [address] [place] [address] Byron Eric M.D. Director [facility] # [id number] 4 SEE RESULT BELOW Name: SERINA LOCKWOOD : [address]: Aldo Urrutia MD Acct: [id number] Unit: [id number] AGE: 34 Location: [facility] Re06/18/19 SEX: F Status: REG REF SPEC: [id number] TAYLA: 06/18/19-1000 [facility] DR: Aldo Urrutia MD REQ: [id number] RECD: 06/18/19-1206 STATUS: COMP _ SOURCE: STOOL SPDESC: ORDERED: Adolfo griffin PCR Procedure Result Reported Site Stool Specimen Description Final 06/18/19- 1340 ML Stool Color Brown Stool Form Nonformed Stool Consistency Mucoid Liquid C. difficile PCR Final 06/18/19- 1424 ML Organism 1 027 Presumptive NEGATIVE Organism 2 Toxigenic C.diff NEGATIVE * ML - Main Lab . END OF REPORT DEPARTMENT OF PATHOLOGY, [address] [place] [address] Byron Eric M.D. Director [facility] # [id number] Procedures Description No Information Available Medical Devices Description No Information Available Encounters Type Date Location Provider Dx Diagnosis Office Visit 11/06/2019 Gastro[facility] Sophia Santos R07.0 Pain in throat 8:00a [facility] HARRIS Sandoval R07.89 Other chest pain Assessments Date Code Description Provider 11/06/2019 R07.0 Pain in throat Sophia Sandoval PA-C 11/06/2019 R07.89 Other chest pain Sophia Sandoval PA-C Plan of Treatment 11/06/2019 - DREW Yanez07.0 Pain in throatNew Medication: Sucralfate 1 GM/10ML - 1 g by mouth 3-4 times daily on an empty stomach for throat/stomach painR07.89 Other chest pain Functional Status Description No Information Available Mental Status Description No Information Available Referrals Description No Information Available
--- OUTSIDE RECORDS SUMMARY | 2019-12-09 21:57 | XMS REPORT | Summary of Care ---
:1985 Author Organization [facility] Address [address] [place] [address] Care Team Providers Name Role Phone Rachel Anaya MD Primary Care Provider Reason for Visit Reason Comments Infusion Encounter Details Date Type Department Care Team Description 12/05/2019 Office Visit Infectious Disease Favian Eid, Lyme disease (Primary Dx); [facility] Encounter for long-term (current) use of antibiotics [address] [place] [id number] Allergies Active Allergy Reactions Severity Noted Date Comments Other Rash Low 10/12/2019 Dissolvable stiches documented as of this encounter (statuses as of 12/05/2019) Medications Medication Sig Dispensed Refills Start End Status Date Date alprazolam (XANAX) Take 0.25 mg by 0 Active 0.25 MG tablet mouth daily as needed for Anxiety [employer] Thyroid 30 MG daily 0 09/12/20 Active Oral Tablet 19 Cyanocobalamin Take by mouth 0 Active 1000 MCG Oral Tablet ([facility] VITAMIN B12) Vitamin D3 25 MCG Take 8,000 Units 0 Active (1000 UT) Oral by mouth daily Tablet (CHOLECALCIFEROL) [place] 3 1000 MG Take 1 capsule by 0 Active Oral Capsule mouth daily UNABLE TO FIND 1 capsule Med 0 Active Name: Probiotic Magnesium Oxide Take 400 mg by 0 Active 400 (241.3 Mg) MG mouth daily Oral Tablet (MAG-OX) Heparin Sodium 1 mL by 100 Syringe 0 12/02/19 Active Lock Flush 100 Intracatheter 20 UNIT/ML route as needed Intravenous (PRN for after IV SolutionIndication infusion and as s: Lyme disease, needed.) Encounter for long-term (current) use of antibiotics Normal Saline Inject 10 mLs 100 Syringe 5 12/02/19 Active Flush 0.9 % into the vein as 20 Intravenous needed (PRN for SolutionIndication before and after s: Lyme disease, infusion and PRN) Encounter for long-term (current) use of antibiotics Normal Saline Inject 10 mLs 100 Syringe 5 12/02/19 Active Flush 0.9 % into the vein as 20 Intravenous needed (PRN for SolutionIndication before and after s: Lyme disease, infusion and PRN) Encounter for long-term (current) use of antibiotics Heparin Sodium 1 mL by 100 Syringe 0 12/02/19 Active Lock Flush 100 Intracatheter 20 UNIT/ML route as needed Intravenous (PRN for after IV SolutionIndication infusion and as s: Lyme disease, needed.) Encounter for long-term (current) use of antibiotics cefTRIAXone Sodium Inject 2 g into 1 each 0 12/02/19 Active 2 GM Intravenous the vein every 24 20 Solution (twenty-four) ReconstitutedIndic hours ations: Lyme disease, Encounter for long-term (current) use of antibiotics escitalopram Take 10 mg by 0 Discontinued (LEXAPRO) 5 MG mouth daily 020 (Therapy tablet completed) thyroid (ARMOUR Take 30 mg by 0 03/25/20 Discontinued THYROID) 15 MG mouth 18 020 (Duplicate) tablet SUCRALFATE PO Take by mouth 0 Discontinued Four times daily 020 (Therapy before meals and completed) nightly 1 tablet Cefuroxime Axetil Take 1 tablet by 20 tablet 0 11/29/19 Discontinued 500 MG Oral Tablet mouth Two Times 20 020 (Therapy (CEFTIN)Indication Daily for 10 completed) s: Lyme disease, days Chronic fatigue syndrome, Encounter for long-term (current) use of antibiotics Hospital, Clinic, or Other Ordered Dose Route Frequency Start Date End Date Status Facility Administered Medication diphenhydrAMINE (BENADRYL) 50 mg IV Once 12/05/2019 01/04/2020 Active injection 50 mgIndications: Lyme disease, Encounter for long-term (current) use of antibiotics EPINEPHrine (anaphylaxis) 0.3 mg IM Once 12/05/2019 01/04/2020 Active (ADRENALIN) injection 0.3 mgIndications: Lyme disease, Encounter for long-term (current) use of antibiotics NaCl infusion 0.9 IV Once 12/02/2019 03/01/2020 Active %Indications: Lyme disease, Encounter for long-term (current) use of antibiotics cefTRIAXone (ROCEPHIN) 2000 mg IV Once 12/05/2019 12/05/2019 Ended injection 2,000 mgIndications: Lyme disease, Encounter for long-term (current) use of antibiotics documented as of this encounter (statuses as of 12/05/2019) Active Problems Problem Noted Date Right facial numbness 10/12/2019 documented as of this encounter (statuses as of 12/05/2019) Social History Tobacco Use Types Packs/Day Years [...] Sign Reading Time Taken Comments Blood Pressure 108/75 12/05/2019 10:30 AM EDT Pulse 104 12/05/2019 10:30 AM EDT Temperature 36.7 12/05/2019 10:30 AM EDT C (98.1 F) Respiratory Rate 16 12/05/2019 10:30 AM EDT Oxygen Saturation 99% 12/05/2019 10:30 AM EDT Inhaled Oxygen Concentration - - Weight - - Height - - Body Mass Index - - documented in this encounter Patient Instructions Patient InstructionsFavian Eid PA - 12/05/2019 10:30 AM EDT [facility] OFF[facility] [address] [place] [phone] Bernice Lockwood [id number] 1985 34 y.o. year old female 12/05/201910:41 AM Summary of Office Visit with DARREN Uribe MSC: Lines: PICC Line Change PICC line dressing every Monday and as needed Follow-up Labs or imaging: Weekly and prn cbc cmp esr crp Additional Instructions: Antibiotics: iv ceftriaxone 2g q24h x4 weeks documented in this encounter Progress Notes Favian Eid PA - 12/05/2019 10:30 AM EDT [facility] Bernice Lockwood [facility] [id number] [address] [place] [address] 34 y.o.years old [address] female [place], [place], [facility] History of Present Illness: Ms. Bernice Lockwood is a 34 y.o. year old female being seen today for PICC placement and first dose of IV Ceftriaxone. She will be receiving 4 weeks of IV Ceftriaxone 2g q24h x4 weeks for Lyme Disease. Nochange in interval Hx. REVIEW OF SYSTEMS: Review of Systems All other systems reviewed and are negative. Patient Active Problem List Diagnosis Right facial numbness ALLERGIES: Allergies Allergen Reactions Other Rash Dissolvable stiches Home Medications: Home Medications Medication Sig alprazolam (XANAX) 0.25 MG tablet Take 0.25 mg by mouth daily as needed for Anxiety cefTRIAXone Sodium 2 GM Intravenous Solution Reconstituted Inject 2 g into the vein every 24 (twenty-four) hours Cefuroxime Axetil 500 MG Oral Tablet (CEFTIN) Take 1 tablet by mouth Two Times Daily for 10 days Cyanocobalamin 1000 MCG Oral Tablet ([employer] VITAMIN B12) Take by mouth escitalopram (LEXAPRO) 5 MG tablet Take 10 mg by mouth daily Heparin Sodium Lock Flush 100 UNIT/ML Intravenous Solution 1 mL by Intracatheter route as needed (PRN for after IV infusion and as needed.) Heparin Sodium Lock Flush 100 UNIT/ML Intravenous Solution 1 mL by Intracatheter route as needed (PRN for after IV infusion and as needed.) Magnesium Oxide 400 (241.3 Mg) MG Oral Tablet (MAG-OX) Take 400 mg by mouth daily Normal Saline Flush 0.9 % Intravenous Solution Inject 10 mLs into the vein as needed (PRN for before and after infusion and PRN) Normal Saline Flush 0.9 % Intravenous Solution Inject 10 mLs into the vein as needed (PRN for before and after infusion and PRN) [employer] Thyroid 30 MG Oral Tablet daily [place] 3 1000 MG Oral Capsule Take 1 capsule by mouth daily SUCRALFATE PO Take by mouth Four times daily before meals and nightly 1 tablet thyroid (ARMOUR THYROID) 15 MG tablet Take 30 mg by mouth UNABLE TO FIND 1 capsule Med Name: Probiotic Vitamin D3 25 MCG (1000 UT) Oral Tablet (CHOLECALCIFEROL) Take 8,000 Units by mouth daily PERTINENT LABS: CBC: Lab Results Component Value Date WBC 6.2 10/12/2019 RBC 4.88 10/12/2019 HGB 14.0 10/12/2019 HCT 41.6 10/12/2019 PLT 277 10/12/2019 CMP: Lab Results Component Value Date NA 139 10/12/2019 K 3.8 10/12/2019 CL 100 10/12/2019 BICARBONATE 24 10/12/2019 CALCIUM 9.4 10/12/2019 GLUCOSE 79 10/12/2019 BUN 11 10/12/2019 BCR 16 10/12/2019 PROT 5.9 (L) 07/06/2019 ALBUMIN 3.8 07/06/2019 TBILI 0.4 07/06/2019 ALKPHOS 25 (L) 07/06/2019 AST 16 07/06/2019 ALT 11 07/06/2019 AGRATIO 1.8 07/06/2019 GFRAA >90 10/12/2019 GFRNONAA >90 10/12/2019 Vital signs: Vitals - 1 value per visit 10/16/2019 11/05/2019 11/19/2019 SYSTOLIC 108 102 101 DIASTOLIC 70 71 78 PULSE 95 134 90 TEMPERATURE - 98.6 97.6 RESPIRATIONS - 18 18 Weight (kg) 49.986 kg 48.988 kg 49.896 kg HEIGHT 158.2 cm 157.5 cm 157.5 cm SPO2 - 99 100 BODY MASS INDEX 19.97 kg/m2 19.75 kg/m2 20.12 kg/m2 PAIN SCALE - SCORE 0 4 1 PAIN SCALE - LOCATION - - HEAD LAST MENSTRUAL PERIOD - - 11/03/2019 PHYSICAL EXAMINATION Physical Exam Constitutional: She is oriented to person, place, and time and well-developed, well-nourished, and in no distress. No distress. Neck: Normal range of motion. Cardiovascular: Normal rate and regular rhythm. No murmur heard. Pulmonary/Chest: Effort normal and breath sounds normal. No stridor. No respiratory distress. She has no wheezes. She has no rales. Neurological: She is alert and oriented to person, place, and time. Skin: Skin is warm and dry. No rash noted. She is not diaphoretic. No erythema. No pallor. Psychiatric: Mood, memory, affect and judgment normal. Nursing note and vitals reviewed. IMPRESSION/PLAN: 34 year old female beginning 4 week course of IV Ceftriaxone for Lyme. PICC placed without difficulty. Tolerated first dose of Ceftriaxone without complication. Will plan on 4 weeks iv ceftriaxone 2g q24 hour with weekly and prn cbc cmp esr crp. Patient seen. Plan of care discussed with patient, verbalized understanding. Favian Eid MS, PA-C documented in this encounter Plan of Treatment Date Type Specialty Care Team Description 01/02/2020 Office Visit Infectious Diseases Aly Singh DO [address] [place] [address] 01/07/2020 Office Visit Neurology Sole Wilson MD [address] [facility] 4th Floor [address] [place] [address] Health Maintenance Due Date Last Done Comments [...] Visit Diagnoses Diagnosis Lyme disease - Primary Encounter for long-term (current) use of antibiotics documented in this encounter Administered Medications Medication Order MAR Action Action Date Dose Rate Site cefTRIAXone (ROCEPHIN) New Bag 12/05/2019 11:30 AM EDT 2,000 mg injection 2,000 mg 2,000 mg, Intravenous, Once, Fern 12/05/19 at 1030, For 1 dose, Discouraged Uses: Empiric treatment of post-surgical meningitis (ceftazidime preferred), documented in this encounter
--- OUTSIDE RECORDS SUMMARY | 2019-12-09 21:57 | XMS REPORT | Continuity of Care Document ---
:1985 External Reference #:[id number] Author Name Rachel Anaya M.D., R.D. Address [address] [place] [id number] Care Team Providers Name Role Phone Unavailable Care Team Information Marketing Recruiter Unavailable Problems Description No Information Available Social History Type Date Description Comments Sex Unknown Tobacco Use Start: Unknown Patient has never smoked Smoking Status Reviewed: 07/12/19 Patient has never smoked Allergies, Adverse Reactions, Alerts Description No Known Drug Allergies Medications Active Medications SIG Qnty Indications Ordering Date Provider Bert half scoop of Rachel Anaya, 11/04/2019 pellets 2times M.D., R.D. daily R D MANAGER Thyroid 1 tablet by mouth 90tabs Rachel Anaya, 09/12/2019 30mg three times daily M.D., R.D. Tablets Alprazolam 1 tab by mouth 14tabs Rachel Anaya, 05/16/2019 0.25mg twice a day as M.D., R.D. Tablets needed Vitamin B Complex 1 per day Unknown Tablets Probiotic Unknown Capsules Vitamin D3 prn Unknown Capsules Magnesium 1 by mouth every Unknown Capsules day Progesterone day 14-28 of Unknown Compounding Kit menstral cycle 20% Cream Doxycycline Hyclate Unknown 100mg Capsules Sucralfate 4 milliliters by Unknown 1GM/10ML mouth three times a Suspension day as needed for irritation Dexilant take one capsule by Unknown 30mg mouth every day on Capsules DR empty stomach for gerd History Medications Amoxicillin/Clavulanate take 1 tablet by 14tabs Kristan 09/26/2019 - Potassium mouth twice daily SABIHA Potter 10/08/2019 875-125mg Tablets for 7 days for tonsillitis Escitalopram Oxalate 1 by mouth every 30tabs Kristan 05/16/2019 - 10mg Tablets day SABIHA Potter 09/12/2019 Medications Administered in Office Medication SIG Qnty Indications Ordering Provider Date TB,Intradermal (PPD, Mantoux) Lab and Office Services 09/11/2018 Injection Immunizations CPT Code Status Date Vaccine Lot # [id number] Refused 10/08/2019 Influenza Virus Vaccine, Quadrivalent, 3 Yr > Quad , Preserv Free [id number] Refused 09/26/2019 Influenza Virus Vaccine, Quadrivalent, 3 Yr > Quad , Preserv Free 12750 Refused 09/12/2019 Influenza Virus Vaccine, Quadrivalent, 3 Yr > Quad , Preserv Free 11253 Refused 06/20/2018 Influenza Virus Vaccine, Quadrivalent, 3 Yr > Quad , Preserv Free Vital Signs Date Vital Result Comment 11/04/2019 11:51am Weight 108.00 lb Weight 48.989 kg BP Systolic 104 mmHg BP Diastolic 60 mmHg Heart Rate 87 /min Body Temperature 98.8 F Respiratory Rate 16 /min O2 % BldC Oximetry 98 % 10/08/2019 10:12am Weight 111.00 lb Weight 50.350 kg BP Systolic 104 mmHg BP Diastolic 70 mmHg Heart Rate 78 /min Body Temperature 98.5 F Respiratory Rate 16 /min O2 % BldC Oximetry 97 % Results Test Acquired Date Facility Test Result H/L Range Note CBC Auto 10/08/2019 [facility] White Blood 6.1 10^3/ uL Normal 3.5-10.8 Diff [phone] Count Red Blood Count 4.79 10^6/uL Normal 3.70-4.87 [...] Blood Cells % 0.1 Comp Metabolic 10/08/2019 [facility] Sodium 138 mmol/ L Normal 135-145 Panel [phone] Potassium 4.2 mmol/L Normal 3.5-5.0 Chloride 103 [...] Egfr Non- 100.8 >60 Egfr 121.9 >60 1 Laboratory test 10/08/2019 [facility] Hemoglobin A1c 5.0 % Normal 4.0-5.6 2 finding [phone] Lyme Screen W/ Reflex To WB Negative Negative Tick-Borne 10/08/2019 [facility] Anaplasma <1:64 < 1:64 3 Disease AB [phone] phagocytophilium titer Panel Babesia microti IgG Ab, S <1:64 titer <1:64 4 Ehrlichia chaffeensis IgG AB <1:64 titer <1:64 5 Lyme Disease Serology Negative Negative 6 Laboratory 10/08/2019 [facility] TSH (Thyroid 2.24 Normal 0.34-5.60 test finding [phone] Stim Horm) mcIU/mL T3 Total 104 ng/dL Normal 87-178 Free T4 (Free Thyroxine) 0.98 ng/dL Normal 0.61-1.12 Ebv Kristin Rivera 10/08/2019 [facility] Ebv Capsid Positive Negative Comprehensive [phone] Ag IgG Ab Ebv Capsid Ag IgM Ab Negative Negative Kristin-Rivera Nuclear Antigen Positive Negative Kristin-Rivera Virus Interp See Comment 7 Laboratory test 09/26/2019 In House Lab Strep Screen NEG Neg finding (607)- - Laboratory test 09/12/2019 [facility] TSH (Thyroid 2.65 Normal 0.34-5.6 8, 9 finding [phone] Stimulating mcIU/mL 0 Horm) Total T3 117 ng/dL Normal 87-178 10 Free T4 0.75 ng/dL Normal 0.61-1.12 11 Thyroperoxidase AB 231.98 IU/mL High <9 12 Vitamin B12 1142 pg/mL High 180-914 13 Vitamin D Total 25(Oh) 30.2 ng/mL Normal 20-50 14 Free T3 3.90 pg/mL Normal 2.5-3.9 15 Urine DIP 09/12/2019 In House Lab Leukocytes neg Neg (607)- - Urine Nitrites neg Neg Urobilinogen norm Norm Total Protein Urine neg Neg Urine pH 6.0 5-6 Urine Blood neg Neg Specific [place] 1.02 1.01-1.02 Urine Ketones neg Neg Urine Bilirubin neg Neg Urine Glucose norm Norm Rubeola Measles 07/12/2019 [facility] Rubeola Negative 16, 17 Igg AB [phone] (Measles) IgG Antibody Rubeola IgG Antibody Index 0.7 18 Laboratory test 07/12/2019 [facility] Rubella Screen Immune Immune 19 finding [phone] Mumps Igg 07/12/2019 [facility] Mumps Virus Positive 20 [phone] IgG Antibody Mumps IgG Antibody Index 3.1 21 Laboratory test 06/18/2019 [facility] C Difficile SEE RESULT 22 finding [phone] PCR BELOW CBC Auto Diff 05/13/2019 [facility] White Blood 7.4 10^3/uL Normal 3.5-1 [phone] Count 0.8 Red Blood Count 4.73 10^6/uL Normal 3.70-4.87 Hemoglobin 13.7 g/dL Normal 12.0-16.0 Hematocrit 40 % Normal 35-47 Mean Corpuscular Volume 84 fL Normal 80-97 Mean Corpuscular Hemoglobin 29 pg Normal 27-31 Mean Corpuscular HGB Conc 35 g/dL Normal 31-36 Red Cell Distribution Width 14 % Normal 10-15 Platelet Count 240 10^3/uL Normal 150-450 Mean Platelet Volume 8.3 fL Normal 7.4-10.4 Abs Neutrophils 5.2 10^3/uL Normal 1.5-7.7 Abs Lymphocytes 1.7 10^3/uL Normal 1.0-4.8 Abs Monocytes 0.4 10^3/uL Normal 0-0.8 Abs Eosinophils 0.1 10^3/uL Normal 0-0.6 Abs Basophils 0.0 10^3/uL Normal 0-0.2 Abs Nucleated RBC 0.0 10^3/uL Granulocyte % 70.8 % Lymphocyte % 22.4 % Monocyte % 5.4 % Eosinophil % 0.9 % Basophil % 0.5 % Nucleated Red Blood Cells % 0.0 Comp Metabolic 05/13/2019 [facility] Sodium 139 mmol/ L Normal 135-145 Panel [phone] Potassium 3.7 mmol/L Normal 3.5-5.0 Chloride 106 mmol/L Normal 101-111 Co2 Carbon Dioxide 24 mmol/L Normal 22-32 Anion Gap 9 mmol/L Normal 2-11 Glucose 108 mg/dL High 70-100 Blood Urea Nitrogen 12 mg/dL Normal 6-24 Creatinine 0.72 mg/dL Normal 0.51-0.95 BUN/Creatinine Ratio 16.7 Normal 8-20 Calcium 9.7 mg/dL Normal 8.6-10.3 Total Protein 7.6 g/dL Normal 6.4-8.9 Albumin 4.6 g/dL Normal 3.2-5.2 Globulin 3.0 g/dL Normal 2-4 Albumin/Globulin Ratio 1.5 Normal 1-3 Total Bilirubin 0.40 mg/dL Normal 0.2-1.0 Alkaline Phosphatase 33 U/L Low 34-104 Alt 9 U/L Normal 7-52 Ast 14 U/L Normal 13-39 Egfr Non- 92.7 >60 Egfr 112.2 >60 23 Laboratory test 05/13/2019 [facility] Lipase 31 U/L Normal 11.0-82.0 finding [phone] HCG < 0.60 mIU/mL 24 C Difficile PCR SEE RESULT BELOW 25 1 Because ethnic data is not always readily [...] 15-29 5 Kidney failure <15 (or dialysis) 2 Therapeutic target for the treatment of diabetes mellitus patients is <7% HBA1C, and in selective patients <6.0%. Please refer to [place] [employer] diabetic care guidelines for further information. 3 ADDITIONAL INFORMATION This test was developed using an analyte specific reagent. Its performance characteristics were determined by [facility] in a manner consistent with CLIA requirements. This test has not been cleared or approved by the U.S. Food and Drug Administration. 4 ADDITIONAL INFORMATION This test was developed using an analyte specific reagent. Its performance characteristics were determined by [facility] in a manner consistent with CLIA requirements. This test has not been cleared or approved by the U.S. Food and Drug Administration. 5 ADDITIONAL INFORMATION This test was developed using an analyte specific reagent. Its performance characteristics were determined by [facility] in a manner consistent with CLIA requirements. This test has not been cleared or approved by the U.S. Food and Drug Administration. 6 No evidence of antibodies to B. burgdorferi detected. False negative results may occur in recently infected patients (<=2 weeks) due to low or undetectable antibody levels to B. burgdorferi. If recent exposure is suspected, a second sample should be collected and tested in 2-4 weeks. Test Performed by: [facility] [place] [address] Extractor Operator Helper: Dyllan Armendariz M.D. Ph.D.; CLIA# [id number] RESULT: Results suggest past infection. ADDITIONAL INFORMATION [...] primary infection with EBV. Test Performed by: [facility] [place] [address] Extractor Operator Helper: Dyllan Armendariz M.D. Ph.D.; CLIA# [id number] 8 [id number] 9 [id number] 10 [id number] 11 [id number] 12 [id number] 13 Normal Range 180 to 914 Indeterminate Range 145 to 180 Deficient Range <145 14 Total 25-Hydroxyvitamin D2 and D3 (25-OH-VitD) <10 ng/mL (severe deficiency) 10-19 ng/mL (mild to moderate deficiency) 20-50 ng/mL (optimum levels) 51-80 ng/mL (increased risk of hypercalciuria) >80 ng/mL (toxicity possible) 15 [id number] 16 [id number] 17 REFERENCE VALUE Vaccinated: Positive (>=1.1 AI) Unvaccinated: Negative (<=0.8 AI) 18 Test Performed by: [facility] [place] [address] Extractor Operator Helper: Dyllan Armendariz M.D. Ph.D.; CLIA# [id number] 19 [id number] 20 Results suggest response to immunization or prior exposure to the virus. REFERENCE VALUE Vaccinated: Positive (>=1.1 AI) Unvaccinated: Negative (<=0.8 AI) 21 Test Performed by: [facility] [place] [address] Extractor Operator Helper: Dyllan Armendariz M.D. Ph.D.; CLIA# [id number] 22 SEE RESULT BELOW Name: BERNICE LOCKWOOD : [address]: Aldo Urrutia MD Acct: [id number] Unit: [id number] AGE: 34 Location: [facility] Re06/18/19 SEX: F Status: REG REF SPEC: [id number] TAYLA: 06/18/19-[address]: Aldo Urrutia MD REQ: [id number] RECD: 06/18/19-1206 STATUS: COMP _ SOURCE: STOOL SPDESC: ORDERED: C. diff PCR Procedure Result Reported Site Stool Specimen Description Final 06/18/19- 1340 ML Stool Color Brown Stool Form Nonformed Stool Consistency Mucoid Liquid C. difficile PCR Final 06/18/19- 1424 ML Organism 1 027 Presumptive NEGATIVE Organism 2 Toxigenic C.diff NEGATIVE * ML - Main Lab . END OF REPORT DEPARTMENT OF PATHOLOGY, [address] [place] [address] Byron Eric M.D. Director [facility] # [id number] 23 Because ethnic data is not always readily [...] 15-29 5 Kidney failure <15 (or dialysis) 24 <5.0 Negative 5.0 - 25.0 Indeterminate (Repeat testing recommended after 72 hours) >25.0 Positive Perimenopausal women can display HCG levels of up to 20 mIU/mL 25 SEE RESULT BELOW Name: BERNICE LOCKWOOD : [address]: Joby Johnson MD Acct: [id number] Unit: [id number] AGE: 34 Location: ED Re05/13/19 SEX: F Status: REG ER SPEC: [id number] TAYLA: 05/13/[address]: Lanre TUCKER REQ: [id number] RECD: 05/13/19 STATUS: JH PORRAS DR: Kristan Potter R D MANAGER _ SOURCE: STOOL SPDESC: ORDERED: C. diff PCR COMMENTS: Verbal to ALEXIS TUCKER (ED) by [id number] at 0932 on 05/13/19. Results read back accurately. Procedure Result Reported Site Stool Specimen Description Final 05/13/19- 932 ML Stool Color Brown Stool Form Semi-formed Stool Consistency Liquid with Solid pieces C. difficile PCR Final 05/13/19930 ML Organism 1 027 Presumptive NEGATIVE Organism 2 Toxigenic C.diff POSITIVE * ML - Main Lab . END OF REPORT DEPARTMENT OF PATHOLOGY, [address] [place] [address] Byron Eric M.D. Director [facility] # [id number] Procedures Description No Information Available Medical Devices Description No Information Available Encounters Type Date Location Provider Dx Diagnosis Office Visit 10/08/2019 10:15a [facility] [place] M.[facility]., R51 Headache R.D. R42 Dizziness and giddiness Office Visit 09/26/2019 11:15a Saritha Rushing J03.90 Acute tonsillitis, SABIHA Potter unspecified F41.9 Anxiety disorder, unspecified N60.01 Solitary cyst of right breast Office Visit 09/12/2019 3:30p Saritha Potter, E06.3 Autoimmune R D MANAGER thyroiditis Office Visit 07/26/2019 2:30p [facility] Kristan Potter, F41.9 Anxiety disorder, R D MANAGER unspecified R19.7 Diarrhea, unspecified F90.0 Attn-defct hyperactivity disorder, predom inattentive type E06.3 Autoimmune thyroiditis R53.82 Chronic fatigue, unspecified Office Visit 07/12/2019 1:15p [facility] Kristan Potter, Z00.00 Encntr for R D MANAGER general adult medical exam w/o abnormal findings Z01.84 Encounter for antibody response examination R19.7 Diarrhea, unspecified K13.79 Other lesions of oral mucosa Office Visit 07/08/2019 11:15a Main Office Kristan Potter, R19.7 Diarrhea, R D MANAGER unspecified F41.9 Anxiety disorder, unspecified K13.79 Other lesions of oral mucosa Office Visit 06/18/2019 9:00a [facility] Aldo Urrutia, R19.7 Diarrhea , M.D. unspecified Office Visit 05/16/2019 9:00a [facility] Kristan Potter, F41.9 Anxiety disorder, R D MANAGER unspecified A04.72 Enterocolitis d/t Clostridium difficile, not spcf as recur N60.01 Solitary cyst of right breast Assessments Date Code Description Provider 11/04/2019 K21.0 Gastro-esophageal reflux disease with Rachel Anaya M.D. , R.D. esophagitis 11/04/2019 A69.20 Lyme disease, unspecified Rachel Anaya M.D., R.D. 10/08/2019 R51 Headache Rachel Anaya M.D., R.D. 10/08/2019 R42 Dizziness Rachel Anaya M.D., R.D. 09/26/2019 J03.90 Acute tonsillitis, unspecified Kristan Potter, R D MANAGER 09/26/2019 F41.9 Anxiety disorder, unspecified Kristan Potter, R D MANAGER 09/26/2019 N60.01 Solitary cyst of right breast Kristan Potter, R D MANAGER 09/12/2019 E06.3 Autoimmune thyroiditis Kristan Potter, R D MANAGER 07/26/2019 F41.9 Anxiety disorder, unspecified Kristan Potter, R D MANAGER 07/26/2019 R19.7 Diarrhea, unspecified Kristan Potter, R D MANAGER 07/26/2019 F90.0 Attention-deficit hyperactivity Kristan SABIHA Potter disorder, predominantly inat 07/26/2019 E06.3 Autoimmune thyroiditis Kristan Potter, R D MANAGER 07/26/2019 R53.82 Chronic fatigue, unspecified Kristan Potter, R D MANAGER 07/12/2019 Z00.00 Encounter for general adult medical Kristan PotterSABIHA examination without abnormal findings 07/12/2019 Z01.84 Encounter for antibody response Kristan PotterSABIHA examination 07/12/2019 R19.7 Diarrhea, unspecified Kristan Potter, R D MANAGER 07/12/2019 K13.79 Other lesions of oral mucosa Kristan Potter, R D MANAGER 07/08/2019 R19.7 Diarrhea, unspecified Kristan Potter, R D MANAGER 07/08/2019 F41.9 Anxiety disorder, unspecified Kristan Potter, R D MANAGER 07/08/2019 K13.79 Other lesions of oral mucosa Kristan Potter R D MANAGER 06/18/2019 R19.7 Diarrhea, unspecified Aldo Urrutia M.D. 05/16/2019 F41.9 Anxiety disorder, unspecified Kristan Potter, R D MANAGER 05/16/2019 A04.72 Enterocolitis due to Clostridium Kristan Potter, R D MANAGER difficile, not specified as recurrent 05/16/2019 N60.01 Solitary cyst of right breast Kristan PotterSABIHA Plan of Treatment Future Appointment(s):11/21/2019 11:00 am - Rachel Anaya M.D., R.D. at [facility]11/04/2019 - Rachel Anaya M.D., R.D.K21.0 Gastro-esophageal reflux disease with esophagitisRecommendations:Stop the doxycycline. Take Nexium samples, one a day. Take sucralfate 4 times daily. Be sure to stayhydrated even if you are not able to eat a lot of solid food the next few days. If you do not have relief from your throat/esophagus burning in the next couple of days, please call the office. Follow up with AKIN and Elma Hernandez as planned.A69.20 Lyme disease, unspecified Functional Status Description No Information Available Mental Status Description No Information Available Referrals Refer to Reason for Referral Status Appt [facility] Referral to [facility] Neurology Patient Declined for evaluation - headache and vision changes. - - Please contact Pt to schedule appt. - - Please fax appointment date/time to [facility], . [facility] [address] [place] [address] [phone] Krystina Sandoval Referral to GI associates for consult. Patient Declined 07/11/2019 [facility] [address] [address] [phone] Lauro Guevara Plan refer to maxillofacial surgeon for Scheduled 2018 further evaluation/treatment. [facility] [address] [facility] [address] [place] [address] [phone]
--- OUTSIDE RECORDS SUMMARY | 2019-12-09 21:57 | XMS REPORT | Continuity of Care Document ---
:1985 External Reference #:[id number] Author Name GARRETT Ferraro (transmitted by agent of provider Maria R Vega) Address [address] [facility], [place] [address] Care Team Providers Name Role Phone Rachel Anaya MD - Family Care Team Information Restorative Aide [phone] Medicine Problems Description No Information Available Social [...] GARRETT Hernandez Powder gram bid days 12- ALGEBRA TEACHER Thyroid Unknown 15mg Tablets Vitamin B-12 1 by mouth every Unknown Natural day (takes 5000mg 500mcg daily) Tablets Vitamin D 1 by mouth every Unknown 2000Unit day in winter Capsules (dosage unspecified)(not taking currently) Probiotic 1 by mouth every Unknown Capsules day (2 billion cfu) Super [place] 3 daily Unknown Epa/Dha 1000mg Capsules Magnesium [...] Result H/L Range Note Laboratory test 11/07/2019 [facility] Clotest SEE RESULT [address] [place] [address] [phone] CBC Auto Diff 10/08/2019 [facility] White Blood 6.1 10^3/uL Normal 3.5-10.[address] [place] [address] [phone] Red Blood Count 4.79 10^6/uL Normal 3.70-4.87 [...] Comp Metabolic 10/08/2019 [facility] Sodium 138 mmol/L Normal 135-[address] [place] [address] [phone] Potassium 4.2 mmol/L Normal 3.5-5.0 Chloride 103 [...] >60 Egfr 121.9 >60 2 Laboratory 10/08/2019 [facility] Free T4 (Free 0.98 Normal 0.61-1.[address] Thyroxine) ng/[place] [address] [phone] T3 Total 104 ng/dL Normal 87-178 TSH (Thyroid Stim Horm) 2.24 mcIU/mL Normal 0.34-5.60 Cytology 08/30/2019 [facility] Cytology SEE RESULT BELOW 3 , 4 [address] [place] [address] [phone] PDFReport SEE IMAGE 1 SEE RESULT BELOW Name: BERNICE LOCKWOOD Dinora : [address]: Kartik Marina MD Acct: [id number] Unit: [id number] AGE: 34 Location: [facility] Re11/07/19 SEX: F Status: DEP REF SPEC: [id number] TAYLA: 11/07/19-1 [facility] DR: Kartik Marina MD REQ: [id number] RECD: 11/07/19 STATUS: JH PORRAS DR: Rachel Hernandez PA _ SOURCE: GAS ANTRUM SPDESC: ORDERED: Clotest Procedure Result Reported Site Clotest Final 11/08/19- 821 ML Clotest Negative * ML - Main Lab . END OF REPORT DEPARTMENT OF PATHOLOGY, [address] [place] [address] Byron Eric M.D. Director [facility] # [id number] 2 Because ethnic data is not always [...] 5 Kidney failure <15 (or dialysis) 3 [id number] 4 SEE RESULT BELOW Name: BERNICE LOCKWOOD : [address]: Vandana Greene NP, CNM Acct: [id number] Unit: [id number] AGE: 34 Location: [facility] Re08/30/19 SEX: F Status: REG REF SPEC: [id number] TAYLA: 08/30/19-0844 [facility] DR: Vandana Greene NP, CNM REQ: [id number] RECD: 08/30/19 STATUS: SOUT _ ORDERED: TP IMAGE ANALYS, HPV/Thin Prep, HPV 16/18 GENE COMMENTS: [id number] FINAL DIAGNOSIS Negative for Intraepithelial lesion or [...] CONTINUED ON NEXT PAGE DEPARTMENT OF PATHOLOGY, [address] [place] [address] Byron Eric M.D. Director [facility] # [id number] CYTOLOGY PATIENT INFORMATION Patient Information: HPV: High risk HPV RNA testing regardless of pap results. HPV 16/18 Genotype Reflex Actual Specimen Date: 08/30/19 LMP If Unknown: Last Menstrual Period Not Given. ?: N Post Menopausal?: N Hysterectomy?: N Previous Abnormal Pap Smears?:N Signed by and Reported on: YAIMA Del Castillo (ASCP) 1202 This Pap test was evaluated with the assistance of the [employer] Test Imaging System. Due to cytologic findings at the assistant purchasing manager microscope, comprehensive manual rescreening by a Varnish Cooker may be required. The Pap Smear is [...] years. END OF REPORT DEPARTMENT OF PATHOLOGY, [address] [place] [address] Byron Eric M.D. 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-Cde exam (general) (routine) w/o abn findings N64.59 Other signs and symptoms in breast N81.89 Other female genital prolapse 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 Office Visit 08/05/2019 2:00p [facility] Elma Hernandez, N94.3 Premenstrual [facility] PA tension syndrome G50.1 Atypical facial pain R53.83 Other fatigue R19.7 Diarrhea, unspecified Office Visit 07/11/2019 1:00p [facility] Elma Hernandez, N94.3 [facility] [place] tension syndrome R19.7 Diarrhea, unspecified G50.1 Atypical facial pain D50.9 Iron deficiency anemia, unspecified Assessments Date Code Description Provider 11/19/2019 F41.9 Anxiety disorder, unspecified GARRETT Ferraro 11/19/2019 A69.20 Lyme disease, unspecified GARRETT Ferraro 10/08/2019 R51 Headache GARRETT Ferraro 10/08/2019 F41.9 Anxiety disorder, unspecified Elma Hernandez, PA 10/08/2019 R20.2 Paresthesia of skin Elma Hernandez, GARRETT 08/30/2019 Z01.419 Encounter for gynecological examination Arthur Mendez (general) (routine) without abnormal findings 08/30/2019 N64.59 Other signs and symptoms in breast WILBERT Mendez-Tom 08/30/2019 N81.89 Other female genital prolapse WILBERT Mendez-Cddinora 08/30/2019 I83.812 Varicose veins of left lower extremity with WILBERT Mendez-Tom pain 08/05/2019 N94.3 Premenstrual tension syndrome Elma Hernandez, PA 08/05/2019 G50.1 Atypical facial pain Elma Hernandez, PA 08/05/2019 R53.83 Other fatigue Elma Hernandez, PA 08/05/2019 R19.7 Diarrhea, unspecified Elma Hernandez, PA 07/11/2019 N94.3 Premenstrual tension syndrome Elma Hernandez, PA 07/11/2019 R19.7 Diarrhea, unspecified Elma Hernandez, PA 07/11/2019 G50.1 Atypical facial pain Elma Hernandez, PA 07/11/2019 D50.9 Iron deficiency anemia, srikanthified GARRETT Ferraro Plan of Treatment Future Appointment(s):02/18/2020 10:30 am - GARRETT Ferraro at [facility]01/14/2020 9:30 am - GARRETT Ferraro at [facility]12/19/2019 11:00 am - GARRETT Ferraro at [facility]11/19/2019 - Elma Hernandez PAF41.9 Anxiety disorder, unspecifiedRecommendations:this is better. you [...] to Reason for Referral Status Appt Date Shelby Kelly PT, OCS Created [address] [place] [address] [phone] Serafin Bowie MD Sent [address] [place], [place] [id number] [phone]
--- OUTSIDE RECORDS SUMMARY | 2019-12-09 21:57 | XMS REPORT | Continuity of Care Document ---
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 Thyroid take one tablet 90tabs Kristan Potter NP 15mg Tablets by mouth three times a day Doxycycline Hyclate bid-Lyme Disease Unknown 100mg Capsules History Medications Escitalopram Oxalate 1 by mouth every 30tabs Kristan Potter NP 05/16/2019 - 10mg day 11/06/2019 Tablets Immunizations CPT Code Status Date Vaccine Lot # [id number] Refused 06/20/2018 Influenza Virus Vaccine, Quadrivalent, Split, Preservative Free Vital Signs Date Vital Result Comment 11/06/2019 8:07am Height 62 inches 5'2" Weight 108.00 lb BP Systolic 105 mmHg BP Diastolic 68 mmHg Heart Rate 84 /min BMI (Body Mass Index) 19.8 kg/m2 Results Test Acquired Date Facility Test Result H/L Range Note Laboratory test 11/07/2019 [facility] RESULT 1, 2 finding Pathology Order BELOW Laboratory test 11/07/2019 [facility]otest SEE RESULT 3 finding BELOW Laboratory [...] Difficile PCR See Result 4 Below 1 [id number] 2 SEE RESULT BELOW Name: SERINA LOCKWOOD : [address]: Kartik Marina MD Acct: [id number] Unit: [id number] AGE: 34 Location: [facility] Re11/07/19 SEX: F Status: DEP REF SPEC: [id number] TAYLA: 11/07/19- [facility] DR: Kartik Marina MD REQ: [id number] RECD: 11/07/19 STATUS: SOUT _ ORDERED: LEVEL 4 COMMENTS: [id number] FINAL DIAGNOSIS Duodenum, biopsy: -- Benign small [...] 1133 END OF REPORT DEPARTMENT OF PATHOLOGY, [address] [place] [address] Byron Eric M.D. Director [facility] # [id number] 3 SEE RESULT BELOW Name: SERINA LOCKWOOD : [address]: Kartik Marina MD Acct: [id number] Unit: [id number] AGE: 34 Location: [facility] Re11/07/19 SEX: F Status: DEP REF SPEC: [id number] ATYLA: 11/07/19-[address] [facility] [address]: Kartik Marina MD REQ: [id number] RECD: 11/07/19 STATUS: [facility] DR: Rachel Hernandez PA _ SOURCE: GAS ANTRUM SPDESC: ORDERED: Clotest Procedure Result Reported Site Clotest Final 11/08/19- 821 ML Clotest Negative * ML - Main Lab . END OF REPORT DEPARTMENT OF PATHOLOGY, [address] [place] [address] Byron Eric M.D. Director [facility] # [id number] SEE RESULT BELOW Name: SERINA LOCKWOOD : [address]: Kartik Marina MD Acct: [id number] Unit: [id number] AGE: 34 Location: [facility] Re11/07/19 SEX: F Status: DEP REF SPEC: [id number] TAYLA: 11/07/19-[address] [facility] [address]: Kartik Marina MD REQ: [id number] RECD: 11/07/19-1331 STATUS: COMP [facility] DR: Rachel Hernandez PA _ SOURCE: GAS ANTRUM SPDESC: ORDERED: Clotest Procedure Result Reported Site Clotest Final 11/08/19- 821 ML Clotest Negative * ML - Main Lab . END OF REPORT DEPARTMENT OF PATHOLOGY, [address] [place] [address] Byron Eric M.D. Director [facility] # [id number] SEE RESULT BELOW Name: SERINA LOCKWOOD : [address]: Kartik Marina MD Acct: [id number] Unit: [id number] AGE: 34 Location: [facility] Re11/07/19 SEX: F Status: DEP REF SPEC: [id number] TAYLA: 11/07/19-[address]: Kartik Marina MD REQ: [id number] RECD: 11/07/19-1331 STATUS: [facility] DR: Rachel Hernandez PA _ SOURCE: GAS ANTRUM SPDESC: ORDERED: Clotest Procedure Result Reported Site Clotest Final 11/08/19- 821 ML Clotest Negative * - Main Lab . END OF REPORT DEPARTMENT OF PATHOLOGY, [address] [place] [address] Byron Eric M.D. Director [facility] # [id number] 4 SEE RESULT BELOW Name: SERINA LOCKWOOD : [address]: Aldo Urrutia MD Acct: [id number] Unit: [id number] AGE: 34 Location: [facility] Re06/18/19 SEX: F Status: REG REF SPEC: [id number] TAYLA: 06/18/19-[address] [facility] [address]: Aldo Urrutia MD REQ: [id number] RECD: 06/18/19-1206 STATUS: COMP _ SOURCE: STOOL SPDESC: ORDERED: Adolfo griffin PCR Procedure Result Reported Site Stool Specimen Description Final 06/18/19- 1340 ML Stool Color Brown Stool Form Nonformed Stool Consistency Mucoid Liquid C. difficile PCR Final 06/18/19- 1424 ML Organism 1 027 Presumptive NEGATIVE Organism 2 Toxigenic C.diff NEGATIVE * ML - Main Lab . END OF REPORT DEPARTMENT OF PATHOLOGY, [address] [place] [address] Byron Eric M.D. Director [facility] # [id number] Procedures Description No Information Available Medical Devices Description No Information Available Encounters Type Date Location Provider Dx Diagnosis Office Visit 11/06/2019 Gastroenterology Sophia Santos R07.0 Pain in throat 8:00a [facility] HARRIS Sandoval R07.89 Other chest pain [...]
[2019-12-09 21:58] LABS: Albumin 4.5 g/dL (3.2-5.2); Anion Gap 9 mmol/L (2-11); CO2 Carbon Dioxide 26 mmol/L (22-32); Calcium 9.4 mg/dL (8.6-10.3); Chloride 104 mmol/L (101-111); Potassium 3.9 mmol/L (3.5-5.0); Sodium 139 mmol/L (135-145)
--- OUTSIDE RECORDS SUMMARY | 2019-12-09 21:58 | XMS REPORT | Summary of Care ---
:1985 Author Organization [facility] Address [address] [place] [id number] Care Team Providers Name Role Phone Rachel Anaya MD Primary Care Provider Reason for Visit Reason Comments Blurred Vision Comprehensive Eye Exam Encounter Details Date Type Department Care Team Description 10/15/[address] [facility] Manoj Richards Asthenopia , right Vision Care MD Pascual (Primary Dx) [address] [facility] [address] [place] [address] [place] [phone] Allergies Active Allergy Reactions Severity Noted Date Comments Other Rash Low 10/12/2019 Dissolvable stiches documented as of this encounter (statuses as of 10/15/2019) Medications Medication Sig Dispensed Refills Start Date End Date Status levothyroxine Take 88 mcg by 0 Active (SYNTHROID, LEVOTHROID) mouth daily. 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 30 MG Oral daily 0 09/12/2019 Active Tablet Cyanocobalamin 1000 MCG Take by mouth 0 Active Oral Tablet ([facility] VITAMIN B12) Vitamin D3 25 MCG (1000 Take 8,000 Units 0 Active UT) Oral Tablet by mouth daily (CHOLECALCIFEROL) Golden 3 1000 MG Oral Take 1 capsule by 0 Active Capsule mouth daily UNABLE TO FIND 1 capsule Med 0 Active Name: Probiotic Magnesium Oxide 400 Take 400 mg by 0 Active (241.3 Mg) MG Oral mouth daily Tablet (MAG-OX) Hospital, Clinic, or Ordered Dose Route Frequency Start Date End Date Status Other Facility Administered Medication tropicamide (MYDRIACYL) 1 drop Both Eyes Once 10/15/2019 10/15/2019 Ended 1 % ophthalmic solution 1 drop phenylephrine (MYDFRIN) 1 drop Both Eyes Once 10/15/2019 10/15/2019 Ended 2.5 % ophthalmic solution 1 drop proparacaine (ALCAINE) 1 drop Both Eyes Once 10/15/2019 10/15/2019 Ended 0.5 % ophthalmic solution 1 drop documented as of this encounter (statuses as of 10/15/2019) Active Problems Problem Noted Date Right facial numbness 10/12/2019 documented as of this encounter (statuses as of 10/15/2019) Social History Tobacco Use Types Packs/Day Years [...] of this encounter Last Filed Vital Signs Not on filedocumented in this encounter Patient Instructions Patient InstructionsHaManoj willis MD - 10/15/2019 1:45 PM ESTPlease follow the physician's instructions as communicated during the office visit. Medications should be taken/given as prescribed or recommended by the physician. Please keep the follow-up appointment as recommended by the physician and return sooner if any changes, questions, or concerns arise. documented in this encounter Progress Notes Manoj Richards MD - 10/15/2019 1:45 PM EST Chief Complaint Patient presents with Blurred Vision Comprehensive Eye Exam HPI Blurred Vision In right eye. Onset was sudden. Vision is blurred. Comprehensive Eye Exam In right eye. Comments New patient [facility] ED f/u blurry OD Past h/o: thyroid/Oriana's POTS-posterior orthostatic tachycardio static Ebson Rivera Virus Raynaud's Strabismus Surgery -as baby Patched one eye for 1-2 years and told OS "weak" eye Also told has nystagmus -MRI Monday for MS r/o- And spinal tap tomorrow scheduled Current Eye meds: At's C/o-patient reports in August she started having blurred vision and numbness of right side of face. then 3 d/a late morning she had right side of face numb and also diff talking with loss of memory-went to ED and no diagnosis yet. She also had Minor headache rated 4/10. Last edited by CHRISTIN Mabry on 10/15/2019 2:20 PM. (History) History: Patient's medications, allergies, past medical, surgical, social, and family histories werereviewed and updated as appropriate. Past Surgical History: Procedure Laterality Date EYE SURGERY LYMPH NODE BIOPSY Right 03/25/2019 STRABISMUS SURGERY Past Medical History: Diagnosis Date Adrenal insufficiency Asthma Concussion Oriana's disease Nystagmus POTS (postural orthostatic tachycardia syndrome) Raynaud disease Strabismus Thyroid disease Family History Problem Relation Age of Onset Cataracts Mother Strabismus Sister Social History Socioeconomic History Marital status: Spouse name: Not on file Number of children: Not on file Years of education: Not on file Highest education level: Not on file Occupational History Not on file Social Needs Financial resource strain: Not on file Food insecurity: Worry: Not on file Inability: Not on file Transportation needs: Medical: Not on file Non-medical: Not on file Tobacco Use Smoking status: Never Smoker Smokeless tobacco: Never Used Substance and Sexual Activity Alcohol use: Not Currently Drug use: Not Currently Sexual activity: Not on file Lifestyle Physical activity: Days per week: Not on file Minutes per session: Not on file Stress: Not on file Relationships Social connections: Talks on phone: Not on file Gets together: Not on file Attends yazidi service: Not on file Active member of club or organization: Not on file Attends meetings of clubs or organizations: Not on file Relationship status: Not on file Intimate partner violence: Fear of current or ex partner: Not on file Emotionally abused: Not on file Physically abused: Not on file Forced sexual activity: Not on file Other Topics Concern Not on file Social History Narrative Not on file Review of Systems: positive for Eyes All other systems have been reviewed and are negative. OPHTH Exam: Base Eye Exam Visual Acuity (Snellen - Linear) Right Left Dist cc 20/20 -1 20/25 -1 Correction: Glasses Tonometry (Tonopen, 2:29 PM) Right Left Pressure 13 11 Pupils Dark Light APD Right 4 3 None Left 4 3 None Visual [place] Left Right Full Full Extraocular Movement Right Left Full Full Dilation Both eyes: 1.0% Tropicamide/2.5% Phenylephrine @ 2:33 PM Additional Tests Color Right Left Ishihara 14 Slit Lamp and Fundus Exam External Exam Right Left External Normal Normal Slit Lamp Exam Right Left Lids/Lashes Normal Normal Conjunctiva/Sclera nasal injection nasal injection Cornea trace inferior SPK Clear Anterior Chamber Deep and Quiet Deep and Quiet Iris Flat, Round Flat, Round Lens Clear Clear Vitreous Clear Clear Fundus Exam Right Left Disc Sharp and Collyer Sharp and Collyer C/D Ratio 0.3 0.3 Macula Normal Normal Vessels Normal Normal Periphery Flat x 4 Quadrants, No Holes, Tears, or Detachments Flat x 4 Quadrants, No Holes, Tears, or Detachments Refraction Wearing Rx Sphere Cylinder [place] Right -0.75 +1.50 040 Left -1.00 +2.75 125 Age: 2+yrs We administered tropicamide, phenylephrine, and proparacaine. The following tests were performed today and reviewed with the patient (for the professional interpretation refer to the Oph Proc tab in chart review): DX/Plan: Bernice Lockwood is a 34 y.o. female with: # Asthenopia In setting of memory issues, right sided face numbness for 12 hours on 10/12/19 Possibly in setting of nystagmus and prior eye surgery, however nystagmus has been present for years No ocular findings to explain pain Color plates are full ou Nerves appear healthy ou MRI showed nonenhancing flair signal in periventricular white matter of posterior right lateral ventricle suggestive of prominent perivascular space vs early focus of demyelination Lyme testing positive with immunoblot positivity Negative testing: JACQUI, folate, Vit D Plan: Following with neurology Plans for LP on 10/16/19 Agree with work up as planned by neurology Lyme appears positive, will defer to primary and neurology to manage these inpatient lab results # Torsional Nystagmus Denies oscillopsia Thinks this has been present since eye surgery as a girl. Went for LASIK eval 10 year ago and was told she had nystagmus at that time #Right esotropia and right hypertropia Hx of Strabismus surgery as a baby for esotropia by Dr. Cornell at [facility] Some nystagmus since surgery, some residual intermittent exotropia of the left eye No diplopia Counseling provided for the following issues, either verbally and/or hand-out: N /A Seen with LAURY Waggoner Patient to call with any change, concern, or new ophthalmic or eye related issues. F/U: Return in about 6 months (around 04/14/2020) for General. Dilate no Manoj Richards M.D. Resident's history reviewed, patient interviewed and examined. I agree. On exam I find: Intermittent lag of exo deviation OU, npc break from 6" out. Assessment and plan reviewed with resident. I agree with the diagnosis and treatment plan as documented by the resident. IArtem Judy, scribed this note for Laury Allen M.D., 10/15/2019, 5:02 PM. I agree with the residents' note as documented above. IAlejandro Robert L, MD was present during the encounter that was recorded by a scribe. I have reviewed the information recorded and I verify its accuracy. , 5:54 PM documented in this encounter Plan of Treatment Date Type Specialty Care Team Description 10/16/2019 Office Visit Neurology [facility] [address] [facility] [address] [place] [address] [phone] Health Maintenance Due Date Last Done Comments DTaP,Tdap,and Td Vaccines (1 - 02/24/1992 Tdap) HIV Screening 1998 Cervical Cancer Screening 5 years 2006 Varicella Vaccines (1 of 2 - 08/25/2015 [...] filedocumented in this encounter Visit Diagnoses Diagnosis Asthenopia, right - Primary Visual discomfort documented in this encounter Administered Medications Medication Order MAR Action Action Date Dose Rate Site phenylephrine (MYDFRIN) 2.5 % Given 10/15/2019 2:34 PM EST 1 drop ophthalmic solution 1 drop 1 drop, Both Eyes, Once, 10/15/19 at 1445, For 1 dose proparacaine (ALCAINE) 0.5 % ophthalmic Given 10/15/2019 2:34 PM EST 1 drop solution 1 drop 1 drop, Both Eyes, Once, 10/15/19 at 1445, For 1 dose tropicamide (MYDRIACYL) 1 % ophthalmic Given 10/15/2019 2:34 PM EST 1 drop solution 1 drop 1 drop, Both Eyes, Once, 10/15/19 at 1445, For 1 dose documented in this encounter
--- OUTSIDE RECORDS SUMMARY | 2019-12-09 21:58 | XMS REPORT | Summary of Care ---
:1985 Author Organization [facility] Address [address] [place] [address] Care Team Providers Name Role Phone Rachel Anaya MD Primary Care Provider Reason for Referral Consultation (STAT) Status Reason Specialty Diagnoses / Referred By Referred To Procedures Contact Contact Open Specialty Infectious Diagnoses Lyme disease Thanh, Infectious Services Diseases CHERELLE Ryder Disease Private Required [facility] [address] [address], [place] [id number] [id number] [place], [place] Phone: [phone] Phone: Email: Fax: [email or web address] [phone] [email or web address] Reason for Visit Reason Comments New Patient Encounter Details Date Type Department Care Team Description 10/16/2019 Office Visit [facility] [place] [facility], [facility] [place] [address] 4th Floor, [address] [place] [id number] [place], [place] [phone] Allergies Active Allergy Reactions Severity Noted Date Comments Other Rash Low 10/12/2019 Dissolvable stiches documented as of this encounter (statuses as of 10/17/2019) Medications Medication Sig Dispensed Refills Start Date End Date Status levothyroxine Take 88 mcg by 0 Active (SYNTHROID, mouth daily. LEVOTHROID) 88 MCG tablet escitalopram Take 10 mg by 0 Active (LEXAPRO) 5 MG tablet mouth daily thyroid (ARMOUR Take 15 mg by 0 03/25/2018 Active THYROID) 15 MG tablet mouth alprazolam (XANAX) Take 0.25 mg by 0 Active 0.25 MG tablet mouth daily as needed for Anxiety [employer]ANCE [employer]IVE Thyroid 30 MG Oral daily 0 09/12/2019 Active Tablet Cyanocobalamin 1000 Take by mouth 0 Active MCG Oral Tablet ([facility] VITAMIN B12) Vitamin D3 25 MCG Take 8,000 Units 0 Active (1000 UT) Oral Tablet by mouth daily (CHOLECALCIFEROL) [place] 3 1000 MG Oral Take 1 capsule 0 Active Capsule by mouth daily UNABLE TO FIND 1 capsule Med 0 Active Name: Probiotic Magnesium Oxide 400 Take 400 mg by 0 Active (241.3 Mg) MG Oral mouth daily Tablet (MAG-OX) Doxycycline Hyclate Take 1 capsule 56 capsule 0 10/16/2019 11/13/2019 Active 100 MG Oral Capsule by mouth Two (VIBRAMYCIN) Times Daily documented as of this encounter (statuses as of 10/17/2019) Active Problems Problem Noted Date Right facial numbness 10/12/2019 documented as of this encounter (statuses as of 10/17/2019) Social History Tobacco Use Types Packs/Day Years [...] Sign Reading Time Taken Comments Blood Pressure 108/70 10/16/2019 11:02 AM EST Pulse 95 10/16/2019 11:02 AM EST Temperature - - Respiratory Rate - - Oxygen Saturation - - Inhaled Oxygen Concentration - - Weight 50 kg (110 lb 3.2 oz) 10/16/2019 11:02 AM EST Height 158.2 cm (5' 2.28") 10/16/2019 11:02 AM EST Body Mass Index 19.97 10/16/2019 11:02 AM EST documented in this encounter Progress Notes [place] [facility] [employer] - 10/16/2019 11:[address] [facility] [address] PATIENT NAME: Bernice Lockwood, DATE OF : 1985 . Primary Care Physician: RACHEL ANAYA MD Current Attending: [facility] clinic note Reason for Visit: follow up after hospital admission and LP. HISTORY OF PRESENT ILLNESS: Most history taken from prior discharge summary of 10/13/2019: Bernice Tucker a 34 y.o.femalewith PMH of Oriana's, POTS, Raynaud diseasewho presents withprogressive neurological symptoms worsened since August. 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 She reports difficulties with comprehension of text and words , and has a hard time putting her thoughts into words. She notes that the right side of her face feels as though she has been "punched" and it is sore and throbbing. She reports diffuse fatigue and body aches. Denies any rashes or tick bites that she is aware of. Denies new medications or travel. She had 24 hours of R facial numbness which was the alarming symptomfor her. The neuro exam was unremarkable and her brain imaging showed a punctate focus of increased T2 and FLAIR signal in the periventricular white matter of the posterior superior aspect of the right lateral ventricle, felt to be a nonspecific finding and this was explained to the patient. Pending labs/ tests done in hospital and still need to be followed up after discharge: Serum: - Thyroid function labs (TSH, T4)= normal - B12, JACQUI specificity, SPEP, Cardiolipin A = normal -Lyme immunoblot: Positive. INTERVAL HISTORY: Patient presented to clinic today and her Lyme immunoblot results were discussed with her. Dr. Andre spoke to the ID attending Dr.Stephen Andrade and patient was started on doxycycline 100 mg bid and outpatient referral was made for ID. She will continue doxycycline till she is seen by ID. We alsoperformed LP today. Past Medical History: Past Medical History: Diagnosis Date Adrenal insufficiency Asthma Concussion Oriana's disease Nystagmus POTS (postural orthostatic tachycardia syndrome) Raynaud disease Strabismus Thyroid disease Past Surgical History: Past Surgical History: Procedure Laterality Date EYE SURGERY LYMPH NODE BIOPSY Right 03/25/2019 STRABISMUS SURGERY Social History Social History Socioeconomic History Marital status: Spouse [...] file Gets together: Not on file Attends scientology service: Not on file Active member of [...] file Social History Narrative Not on file Family History: Family History Problem Relation Age of Onset Cataracts Mother Strabismus Sister Allergies: Allergies Allergen Reactions Other Rash Dissolvable stiches Review of Systems: Complete ROS negative except as mentioned in HPI. 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 thyroid (ARMOUR THYROID) 15 MG tablet Take 15 mg by mouth No current facility-administered medications for this visit. PHYSICAL EXAMINATION Visit Vitals BP 108/70 (BP Location: Left arm, Patient Position: Sitting, Cuff size: Regular) Pulse 95 Ht 1.582 m (5' 2.28") Wt 50 kg (110 lb 3.2 oz) LMP 10/03/2019 BMI 19.97 kg/m General Appearance: Awake, alert, not in distress HEENT: Normocephalic, atraumatic, anicteric sclerae, moist oral mucosa NEUROLOGICAL EXAMINATION Mental status: Awake, alert, and oriented to 3 spheres Cranial nerves: Pupils equal and reactive to light, visual ray intact, extraocular muscles intact, facial sensation equal and symmetric, no facial palsy, gross hearing intact, symmetric palate elevation, tongue protrusion midline. Sensory: Intact to light touch and pinprick on all extremities Motor: Normal bulk and tone. Strength - Upper extremity Deltoid Biceps Triceps WE WF FE FF IO Right 5 5 5 5 5 5 5 5 Left 5 5 5 5 5 5 5 5 Strength - Lower extremity Hip flexion Quads TA Gastroc Hamstrings Right 5 5 5 5 5 Left 5 5 5 5 5 Deep tendon reflexes: Right Left Biceps 2+ 2+ Triceps 2+ 2+ Brachioradialis 2+ 2+ Patella 2+ 2+ Ankle 2+ 2+ Plantar Down Down Cerebellar: Intact finger to nose bilaterally Gait: Normal, non-lateralizing Lumbar Puncture Procedure Pre-operative Diagnosis: Lyme Indications: Diagnostic Procedure Details Consent: Informed consent was obtained. Risks of the procedure were discussed including: infection, bleeding, pain and headache. The patient was positioned under sterile conditions. Betadine solution and sterile drapes were utilized. A spinal needle was inserted at the L3 - L4 interspace. Spinal fluid was obtained and sent to the laboratory. Findings 12mL of clear spinal fluid was obtained. Complications: None; patient tolerated the procedure well. Condition: stable Plan Call office if you develop a severe headache, nausea, vomiting, or fever greater than 100.5 F. ASSESSMENT AND PLAN: 34 yo F being followed up in [facility] after hospital discharge on 10/13/2019 when she had presentedwith a variety of complaints including fatigue, body aches , mental fog, cognitive issues with comprehension and right face numbness. Extensive testing was done during admission of which Lyme immunoblotcame back positive for Lyme. She was called to the clinic today to discuss test results and do LP toevaluate for neuro lyme. -Dr. Andre spoke to the ID attending Dr.Stephen Andrade and patient was started on doxycycline 100 mg bid and outpatient referral was made for ID. She will continue doxycycline till she is seen by ID. - The following studies were ordered: CSF: Cell count CSF protein, CSF glucose CSF pathogen panel IgG Synthesis/Index Lyme DNA PCR on CSF MBP CSF OCB CSF CSF protein electrophoresis Serum: Lyme C6 antigen with reflex whole blood Serum protein electrophoresis. The patient will follow up in clinic in 3 months. The patient was discussed with my attending and this plan was formulated together. I, Kathie Andre, saw and examined this patient on 10/16/19. I reviewed the case with the resident, formulated the impression and plan jointly, as documented in the chart. I also reviewed, and agree with this note. Of note, initial CSF profile (cells, protein, glucose, pathogen panel unremarkable/ negative. I informed the patient of these results on same day. She will continue on doxycycline, pending the ID consult and CSF Lyme results documented in this encounter Plan of Treatment Date Type Specialty Care Team Description 01/07/2020 Office Visit Neurology Sole Wilson MD [address] [facility] 4th Floor [address] [place] [address] [phone] Name Type Priority Associated Diagnoses Date/Time Protein Elect with Serum Lab STAT Lyme disease 10/16/2019 12:50 PM EST TP Lyme C6 Antigen with Lab STAT Lyme disease 10/16/2019 12:50 PM EST Reflex Whole Blood (Authorized Providers Only) IgG Synthesis/Index Lab STAT 10/16/2019 12:00 PM EST Lyme Disease DNA, PCR, Lab STAT 10/16/2019 12:00 PM EST Fluid Myelin basic protein, CSF Lab STAT 10/16/2019 12:00 PM EST Oligoclonal Banding (Send Lab STAT 10/16/2019 12:00 PM EST Out) Name Type Priority Associated Diagnoses Order Schedule Lyme C6 Antigen with Lab STAT Lyme disease 1 Occurrences starting Reflex Whole Blood 10/16/2019 until (Authorized Providers 04/15/2020 Only) Name Type Priority Associated Order Schedule Diagnoses Ambulatory referral Outpatient Referral STAT Lyme disease Ordered: to Infectious 10/16/2019 Disease Health Maintenance Due Date Last Done Comments [...] this topic documented as of this encounter Procedures Procedure Name Priority Date/Time Associated Comments Diagnosis PROTEIN ELECTROPHORESIS STAT 10/16/2019 12:50 Lyme disease WITH SERUM TOTAL PROTEIN PM EST CELL COUNT, CSF STAT 10/16/2019 12:00 Lyme disease Results for this PM EST procedure are in the results section. CSF PATHOGEN PANEL STAT 10/16/2019 12:00 Lyme disease Results for this PM EST procedure are in the results section. PROTEIN, CSF STAT 10/16/2019 12:00 Lyme disease Results for this PM EST procedure are in the results section. GLUCOSE, CSF STAT 10/16/2019 12:00 Lyme disease Results for this PM EST procedure are in the results section. documented in this encounter Results Protein, CSF (10/16/2019 12:00 PM EST) Protein, CSF 13 (L) 15 - 45 mg/dl [facility] Pathology Specimen Cerebrospinal Fluid Performing Organization Address City/[facility]/Zipcode Phone Number [facility] [address] [place] [address] [phone] [facility] [address] [place] [address] Pathology Glucose, CSF (10/16/2019 12:00 PM EST) Glucose, CSF 55 40 - 70 mg/dL [facility] Pathology Specimen Cerebrospinal Fluid Performing Organization Address City/[facility]/Zipcode Phone Number [facility] [address] [place] [address] [phone] [facility] [address] [place] [address] Pathology Cell count, CSF (10/16/2019 12:00 PM EST) Color, CSF Colorless [facility] at Clarity, CSF ClearComment: Tube 4 [facility] [address] [facility] at Red blood cell <2 <2 /uL [facility] count,CSF [facility] Total Nucleated <3 <5 /uL [facility] Cells, CSF [facility] Comment SEE COMMENTComment: [facility] Counts may be [facility] at innaccurate due to the presence of degenerative cells and debris. CSF Differential Not Applicable [facility] at Specimen Cerebrospinal Fluid Performing Organization Address City/State/Zipcode Phone Number [facility] PATHOLOGY AT [address] [address] [facility] at [address] [address] CSF Pathogen Panel (10/16/2019 12:00 PM EST) Pathologist Phillip Special Request None [facility] CSF Panel PCR Results [facility] Assay Note Non-K1 E. coli [facility] serotypes and CLINICAL non-encapsulated PATHOLOGY strains of Neisseria meningitidis are not detected by this panel. Escherichia coli K1 Not Detected [facility] Pathology Haemophilus influenzae Not Detected [facility] Pathology Listeria Monocytogenes Not Detected [facility] Pathology Neisseria meningitidis Not Detected [facility] Pathology Streptococcus Not Detected [facility] Univ Clin Pathology Streptococcus Not Detected [facility] Pathology Cytomegalovirus Not Detected [facility] Pathology Enterovirus Not Detected [facility] Pathology Herpes simplex virus 1 Not Detected [facility] Pathology Herpes simplex virus 2 Not Detected [facility] Pathology Human herpesvirus 6 Not Detected [facility] Pathology Human Parechovirus Not Detected [facility] Pathology Varicella zoster virus Not Detected [facility] Pathology C. neoformans/gattii Not Detected [facility] Pathology Specimen Cerebrospinal Fluid Performing Organization Address City/State/Zipcode Phone Number [facility] PATHOLOG[facility] [address] [place] [address] [phone] [facility] [address] [place] [address] Pathology documented in this encounter Visit Diagnoses Diagnosis Lyme disease - Primary documented in this encounter
--- OUTSIDE RECORDS SUMMARY | 2019-12-09 21:58 | XMS REPORT | Summary of Care ---
:1985 Author Organization [facility] Address [address] [place] [address] Care Team Providers Name Role Phone Rachel Anaya MD Primary Care Provider Reason for Visit Reason Comments Neurologic Problem Numbness Encounter Details Date Type Department Care Team Description 10/12/2019 - Emergency 09G NEUROSURGERY Fortino Ackerman MD [address] [place] [address] [phone] Facial numbness 10/13/2019 [address] [facility] Kathie Andre MD [address] [facility] 4th [place] [address] [phone] (Primary Dx) [place] [address] Allergies Active Allergy Reactions Severity Noted Date Comments Other Rash Low 10/12/2019 Dissolvable stiches documented as of this encounter (statuses as of 10/13/2019) Medications Medication Sig Dispensed Refills Start Date End Date Status levothyroxine Take 88 mcg by 0 Active (SYNTHROID, mouth daily. LEVOTHROID) 88 MCG tablet escitalopram Take 10 mg by 0 Active (LEXAPRO) 5 MG mouth daily tablet thyroid (ARMOUR Take 15 mg by 0 03/25/2018 Active THYROID) 15 MG mouth tablet alprazolam (XANAX) Take 0.25 mg by 0 Active 0.5 MG tablet mouth daily as needed for Anxiety [employer] Thyroid 30 MG daily 0 09/12/2019 Active Oral Tablet Cyanocobalamin 1000 Take by mouth 0 Active MCG Oral Tablet ([facility] VITAMIN B12) Vitamin D3 25 MCG Take 8,000 0 Active (1000 UT) Oral Units by mouth Tablet daily (CHOLECALCIFEROL) Mclean 3 1000 MG Oral Take 1 capsule 0 Active Capsule by mouth daily UNABLE TO FIND 1 capsule Med 0 Active Name: Probiotic Magnesium Oxide 400 Take 400 mg by 0 Active (241.3 Mg) MG Oral mouth daily Tablet (MAG-OX) Vitamin D2 50 MCG Take by mouth 0 Discontinued (1999) Oral 0 Tablet documented as of this encounter (statuses as of 10/13/2019) Active Problems Problem Noted Date Right facial numbness 10/12/2019 documented as of this encounter (statuses as of 10/13/2019) Social History Tobacco Use Types Packs/Day Years [...] Sign Reading Time Taken Comments Blood Pressure 96/65 10/13/2019 8:00 AM EST Pulse 76 10/13/2019 8:00 AM EST Temperature 36.6 10/13/2019 8:00 AM EST C (97.9 F) Respiratory Rate 16 10/13/2019 8:00 AM EST Oxygen Saturation 99% 10/13/2019 8:00 AM EST Inhaled Oxygen Concentration - - Weight 49.9 kg (110 lb) 10/12/2019 4:33 PM EST Height 157.5 cm (5' 2") 10/12/2019 4:33 PM EST Body Mass Index 20.12 10/12/2019 4:33 PM EST documented in this encounter Plan of Treatment Name Type Priority Associated Diagnoses Date/Time Lyme Immunoblot Microbiology Routine 10/12/2019 5:46 PM EST T4 Lab Routine 10/13/2019 11:32 AM EST Methylmalonic Acid, Serum Lab Routine 10/13/2019 11:32 AM EST Immunofixation Lab Routine 10/13/2019 11:32 electrophoresis AM EST Protein Elect with Serum Lab Routine 10/13/2019 11:32 TP AM EST Cardiolipin antibody, IgG Lab Routine 10/13/2019 11:32 AM EST Cardiolipin antibody, IgM Lab Routine 10/13/2019 11:32 AM EST JACQUI Specificity Lab Routine 10/13/2019 11:32 AM EST Name Type Priority Associated Order Schedule Diagnoses Lyme Immunoblot Microbiology Routine Once for 1 Occurrences starting 10/12/2019 until 10/12/2019 T4 Lab Routine Once for 1 Occurrences starting 10/13/2019 until 10/13/2019 Methylmalonic Acid, Lab Routine Once for 1 Serum Occurrences starting 10/13/2019 until 10/13/2019 Immunofixation Lab Routine Once for 1 electrophoresis Occurrences starting 10/13/2019 until 10/13/2019 Cardiolipin antibody, Lab Routine Once for 1 IgG Occurrences starting 10/13/2019 until 10/13/2019 Cardiolipin antibody, Lab Routine Once for 1 IgM Occurrences starting 10/13/2019 until 10/13/2019 JACQUI Specificity Lab Routine Once for 1 Occurrences starting 10/13/2019 until 10/13/2019 documented as of this encounter Procedures Procedure Name Priority Date/Time Associated Comments Diagnosis VITAMIN D 25 HYDROXY, Routine 10/13/2019 11:32 Results for this TOTAL AM EST procedure are in the results section. TSH Routine 10/13/2019 11:32 Results for this AM EST procedure are in the results section. FOLATE Routine 10/13/2019 11:32 Results for this AM EST procedure are in the results section. VITAMIN B12 Routine 10/13/2019 11:32 Results for this AM EST procedure are in the results section. LYME IGG, IGM ANTIBODY STAT 10/12/2019 5:46 Results for this PM EST procedure are in the results section. SEDIMENTATION RATE, STAT 10/12/2019 5:46 Results for this AUTOMATED PM EST procedure are in the results section. CBC AND DIFFERENTIAL STAT 10/12/2019 5:46 Results for this PM EST procedure are in the results section. C-REACTIVE PROTEIN STAT 10/12/2019 5:46 Results for this PM EST procedure are in the results section. BASIC METABOLIC PANEL STAT 10/12/2019 5:46 Results for this PM EST procedure are in the results section. POCT ISTAT BHCG Routine 10/12/2019 5:42 Results for this PM EST procedure are in the results section. documented in this encounter Results Vitamin D 25 Hydroxy, Total (10/13/2019 11:32 AM EST) Vitamin D 25 Hydroxy, 43 >30 ng/mL [facility] TOTAL Clin Pathology Specimen Serum Performing Organization Address City/State/Zipcode Phone Number [facility] [address] [place] [address] [phone] [facility] Clin [address] [place] [address] Pathology Folate (10/13/2019 11:32 AM EST) Folate 11.71 >4.77 ng/mL [facility] Clin Pathology Specimen Serum Performing Organization Address [facility] Phone Number [facility] [address] [place] [address] [facility] [address] [place] [address] Pathology Vitamin B12 (10/13/2019 11:32 AM EST) Vitamin B12 >1800 (H) 211 - 946 pg/ml [facility] Clin Pathology Specimen Plasma Performing Organization Address [facility] Phone Number [facility] [address] [place] [address] [phone] [facility] [address] [place] [address] Pathology TSH (10/13/2019 11:32 AM EST) TSH 0.985 0.270 - 4.200 u[IU]/mL [facility] Clin Pathology Specimen Plasma Performing Organization Address [facility] Phone Number [facility] [address] [place] [address] [facility] [address] [place] [address] Pathology Lyme IgG, IgM antibody (10/12/2019 5:46 PM EST) Lyme IgG antibody Negative Negative [facility] Clin Pathology Lyme IgM antibody Equivocal Negative [facility] (A)Comment: Sample Univ Clin reflexed for Lyme Pathology immunoblot testing Specimen Plasma Performing Organization Address [facility] Phone Number [facility] [address] [place] [address] [facility] [address] [place] [address] Pathology C-reactive protein (10/12/2019 5:46 PM EST) C Reactive Protein <0.5 <8.0 mg/L [facility] Clin Pathology Specimen Plasma Performing Organization Address [facility] Phone Number [facility] [address] [place] [address] [facility] [address] [place] [address] Pathology Sedimentation rate, automated (10/12/2019 5:46 PM EST) Sed Rate - ESR 12 <20 mm/hr [facility] Clin Pathology Specimen EDTA Whole Blood Performing Organization Address City/State/Zipcode Phone Number [facility] [address] [place] [address] [facility] [address] [place] [address] Pathology CBC and Differential (10/12/2019 5:46 PM EST) Pathologist [facility] White Blood Cell 6.2 4 - 10 [facility] 10*3/uL Univ Clin Pathology Red Blood Cell 4.88 4.1 - 5.3 [facility] 10*6/uL [facility] Pathology Hemoglobin 14.0 11.5 - 15.5 [facility] g/dL Univ Clin Pathology Hematocrit 41.6 36 - 45 % [facility] Clin Pathology Mean Cell Volume 85.3 80 - [address] [facility] Clin Pathology Mean Cell Hemoglobin 28.6 27 - [address] [facility] Clin Pathology Mean Cell Hgb Conc 33.6 32.0 - 36.0 [facility] g/dL Univ Clin Pathology Red Cell Dist Width 13.2 11.5 - 14.5 % [facility] Clin Pathology Platelet Count 277 150 - 400 [facility] 10*3/uL Univ Clin Pathology Differential Type Automated Diff [facility] Pathology Neutrophil 70 % [facility] Lymphocyte 23 % [facility] Pathology Monocyte 6 % [facility] Pathology Eosinophil 0 % [facility] Pathology Basophil 1 % [facility] Pathology Abs Neutrophil 4.39 1.8 - 7.0 [facility] 10*3/uL Univ Clin Pathology Abs Lymphocyte 1.42 1.2 - 4.0 [facility] 10*3/uL Univ Clin Pathology Abs Monocyte 0.37 0 - 0.8 [facility] Med 10*3/uL Univ Clin Pathology Abs Eosinophil 0.01 0 - 0.5 [facility] 10*3/uL Univ Clin Pathology Abs Basophil 0.05 0 - 0.2 [facility] 10*3/uL Univ Clin Pathology Nucleated Red Blood 0 0 - 0 [facility] Cells /100{WBCs} [facility] Pathology Specimen EDTA Whole Blood Performing Organization Address [facility] Phone Number [facility] [address] [place] [address] [phone] [facility] Clin [address] [place] [address] Pathology Basic Metabolic Panel (10/12/2019 5:46 PM EST) Bicarbonate 24 22 - 29 mmol/L [facility] Clin Pathology Chloride 100 98 - 107 mmol/L [facility] Clin Pathology Creatinine 0.68 0.50 - 0.90 [facility] mg/dL [facility] Pathology Glucose 79 70 - 140 mg/dL [facility] Clin Pathology Potassium 3.8 3.4 - 5.1 mmol/L [facility] Clin Pathology Sodium 139 136 - 145 mmol/L [facility] Pathology Blood Urea Nitrogen 11 6 - 20 mg/dL [facility] Clin Pathology Anion Gap 15 8 - 15 mmol/L [facility] Clin Pathology Osmolality, Ilir 286 275 - 300 [facility] mosm/kg [facility] Pathology BUN/Cre Ratio 16 [facility] Clin Pathology Calcium 9.4 8.6 - 10.0 mg/dL [facility] Clin Pathology GFR Non >90 >60 [facility] [place] 2009 CDK-EPI mL/min/1.73m2 Univ Clin Pathology GFR >90 >60 [facility] 2009 CKD-EPI mL/min/1.73m2 [facility] Pathology Specimen Plasma Performing Organization Address [facility] Phone Number [facility] [address] [place] [address] [facility] [address] [place] [address] Pathology POCT i-STAT BHCG (10/12/2019 5:42 PM EST) i-STAT BHCG <5 <5 [IU]/L [facility] Comment: Hospital POC (NOTE) Levels between 5 and 25 [IU]/L may indicate early and should be repeated after 48 hours. Specimen Whole Blood Performing Organization Address [facility] Phone Number POINT OF CARE TEST [address] [place] [address] [facility] Hospital POC [address] [place] [address] documented in this encounter Visit Diagnoses Diagnosis Facial numbness - Primary Disturbance of skin sensation documented in this encounter Administered Medications Medication Order MAR Action Action Date Dose Rate Site acetaminophen (TYLENOL) tablet Given 10/13/2019 11:24 AM EST 650 mg 650 mg 650 mg, Oral, Every 4 hours PRN, Mild Pain (Pain Scale Score 1-3), Starting 10/12/19 at 2241, For 30 days, Maximum dose of acetaminophen is 4000 mg from all sources in 24 hours., Medication Order MAR Action Action Date Dose Rate Site acetaminophen (TYLENOL) tablet Given 10/12/2019 5:44 PM EST 975 mg 975 mg 975 mg, Oral, Once, 10/12/19 at 1730, For 1 dose, Maximum daily dose of acetaminophen is 3,000 mg from all sources in 24 hours., sodium chloride 0.9 % bolus New Bag 10/12/2019 5:45 PM EST 1,000 mLs 999 mL/hr 1,000 mL 1,000 mL, Intravenous, Once, 10/12/19 at 1730, For 1 dose documented in this encounter
--- OUTSIDE RECORDS SUMMARY | 2019-12-09 21:58 | XMS REPORT | Summary of Care ---
:1985 Author Organization [facility] Address [address] [place] [address] Care Team Providers Name Role Phone Kristan Potter NP Primary Care Provider Reason for Referral Diagnostic Radiology (Routine) Status Reason Specialty Diagnoses / Referred By Referred To Procedures Contact Contact Authorized Radiology Diagnoses Nonintractable headache, unspecified chronicity pattern, unspecified headache type Rachel Anaya, Procedures MR Brain with and without Contrast [address] [place], [place] [id number] Reason for Visit Diagnostic Radiology (Routine) Status Reason Specialty Diagnoses / Referred By Referred To Procedures Contact Contact Authorized Radiology Diagnoses Nonintractable headache, unspecified chronicity pattern, unspecified headache type Rachel Anaya, Procedures MR Brain with and without Contrast [address] [place] [id number] Encounter Details Date Type Department Care Team Description 10/11/2019 Hospital Encounter MRI [id number] Nonintractable headache, [address] unspecified chronicity Alan F pattern, unspecified [place], [place] headache type [id number] Allergies No Known Allergiesdocumented as of this encounter (statuses as of 10/12/2019) Medications Medication Sig Dispensed Refills Start Date End Date Status levothyroxine Take 88 mcg by 0 Active (SYNTHROID, LEVOTHROID) mouth daily. 88 MCG tablet escitalopram (LEXAPRO) Take 10 mg by 0 Active 5 MG tablet mouth daily thyroid (ARMOUR Take 15 mg by 0 03/25/2018 Active THYROID) 15 MG tablet mouth alprazolam (XANAX) 0.5 Take 0.5 mg by 0 Active MG tablet mouth nightly as needed for Sleep documented as of this encounter (statuses as of 10/12/2019) Active Problems Not on filedocumented as of this encounter (statuses as of 10/12/2019) Social History Tobacco Use Types Packs/Day Years Used Date Never Smoker Alcohol Use Drinks/Week oz/Week Comments Not Currently Sex Assigned at Date Recorded Not on file Job Start Date Occupation Industry Not on file Not on file Not on file Travel History Travel Start Travel End No recent travel history available. documented as of this encounter Last Filed Vital Signs Not on filedocumented in this encounter Plan of Treatment Not on filedocumented as of this encounter Procedures Procedure Name Priority Date/Time Associated Diagnosis Comments MR BRAIN WITH AND Routine 10/11/2019 2:55 Nonintractable Results for this WITHOUT CONTRAST PM EST [place], [place] [id number] chronicity pattern, the results unspecified headache section. type documented in this encounter Results MR Brain with and without Contrast (10/11/2019 2:55 PM EST) Specimen Impressions Performed At IMPRESSION: A single nonenhancing punctate focus of increased T2 and [facility] FLAIR signal in the periventricular white matter of the posterior superior aspect of the right lateral ventricle is a nonspecific finding. Although this could represent an early focus of demyelination in the proper clinical context, this could also be related to prominent perivascular space. Similar foci have also been reported in patients with headaches and normal asymptomatic patients. Narrative Performed At EXAMINATION: MR BRAIN WITH AND WITHOUT CONTRAST [id number] [facility] CLINICAL INDICATION: Headaches. TECHNIQUE: Multiplanar and multisequence MR images of the brain were obtained on our Siemens 3.0 Inez Magnetom Isabel MRI scanner at [place] [address]. IV CONTRAST: Yes. COMPARISON: None at the time of this dictation. FINDINGS: A single punctate focus of increased T2 and FLAIR signal is present in the periventricular white matter of the posterior superior aspect of the right lateral ventricle is shown on image 20 of 31 on the axial FLAIR images. There are no other white matter lesions shown. The ventricles and cerebral sulci are normal. The basal cisterns are patent. There is no acute intracranial hemorrhage or ramses dence of acute infarction. Neither space-occupying mass, shift of the midline structures, nor abnormal extra-axial fluid collections are present. The pituitary gland is not enlarged. The pineal and cervicomedullary regions are normal. Normal flow voids of the major intracranial arterial vessels are identified. There is no abnormal enhancement following contrast administration. Imaged portions of the paranasal sinuses and mastoid air cells are clear. Procedure Note Interface, Received Via [employer] System - 10/11/2019 3:19 PM EST EXAMINATION: MR BRAIN WITH AND WITHOUT CONTRAST [id number] CLINICAL INDICATION: Headaches. TECHNIQUE: Multiplanar and multisequence MR images of the brain were obtained on our Siemens 3.0 Inez Magnetom [place] MRI scanner at [place] [address]. IV CONTRAST: Yes. COMPARISON: None at the time of this dictation. FINDINGS: A single punctate focus of increased T2 and FLAIR signal is present in the periventricular white matter of the posterior superior aspect of the right lateral ventricle is shown on image 20 of 31 on the axial FLAIR images. There are no other white matter lesions shown. The ventricles and cerebral sulci are normal. The basal cisterns are patent. There is no acute intracranial hemorrhage or evidence of acute infarction. Neither space-occupying mass, shift of the midline structures, nor abnormal extra-axial fluid collections are present. The pituitary gland is not enlarged. The pineal and cervicomedullary regions are normal. Normal flow voids of the major intracranial arterial vessels are identified. There is no abnormal enhancement following contrast administration. Imaged portions of the paranasal sinuses and mastoid air cells are clear. IMPRESSION: A single nonenhancing punctate focus of increased T2 and FLAIR signal in the periventricular white matter of the posterior superior aspect of the right lateral ventricle is a nonspecific finding. Although this could represent an early focus of demyelination in the proper clinical context, this could also be related to prominent perivascular space. Similar foci have also been reported in patients with headaches and normal asymptomatic patients. Performing Organization Address City/State/Zipcode Phone Number [facility] [address] [place] [address] documented in this encounter Visit Diagnoses Diagnosis Nonintractable headache, unspecified chronicity pattern, unspecified headache type documented in this encounter Administered Medications Medication Order MAR Action Action Date Dose Rate Site gadobutrol (GADAVIST) contrast Given 10/11/2019 2:40 PM EST 4 mLs injection 5 mL 5 mL (rounded from 5.22 mL = 0.1 mL/kg 52.2 kg), Intravenous, 1 TIME IMAGING, Mon10/11/19 at 1430, For 1 dose, Imaging Protocol, Do not mix or administer in the same IV line with other medications., documented in this encounter
[2019-12-09 22:04] LABS: ALT 15 U/L (7-52); AST 18 U/L (13-39); Alkaline Phosphatase 28 U/L (34-104); BUN/Creatinine Ratio 9.2 (8-20); Blood Urea Nitrogen 6 mg/dL (6-24); EGFR African American 126.3 (>60); EGFR Non-African American 104.3 (>60); Globulin 2.2 g/dL (2-4); Glucose 73 mg/dL (70-100); Total Protein 6.7 g/dL (6.4-8.9)
--- NOTE | 2019-12-09 23:01 | ED ---
Progress - Progress Note Progress Note: The patient was signed out to Dr. Hernandez at 19:00 on 12/09/2019 pending laboratory results and disposition. Course/Dx - Course Course Of Treatment: The patient was signed out to Dr. Hernandez at 19:00 on 2019 pending laboratory results and disposition. She has no acute abnormal labratory findings. - Diagnoses Provider Diagnoses: Chest pain Discharge ED - Sign-Out/Discharge Documenting (check all that apply): Patient Departure - discharge - Discharge Plan Condition: Stable Disposition: HOME Patient Education Materials: Chest Pain (ED) Referrals: Rachel Darden MD [Primary Care Provider] - 3 Days Additional Instructions: Follow-up with your PCP in 2-3 days. Return to the emergency department for changing or worsening symptoms. - Billing Disposition and Condition Condition: STABLE Disposition: Home - Attestation Statements Document Initiated by Chas: Yes Documenting Scribe: Ron Sanchez Provider For Whom Chas is Documenting (Include Credential): Kevin Hernandez MD Scribe Attestation: Ron Gamez scribed for Kevin Hernandez MD on 12/10/19 at 0650. Scribe Documentation Reviewed: Yes Provider Attestation: The documentation as recorded by the Ron griggs accurately reflects the service I personally performed and the decisions made by Kevin santos MD Status of Scribe Document: Viewed
[2019-12-09 23:36] VITALS: BP 128/78
== END 2019-12-09 23:35 | disposition home or self-care (01) ==
LOC: ED 19:53
DX: R07.9 Chest pain, unspecified (principal); R06.02 Shortness of breath; A69.20 Lyme disease, unspecified; E06.3 Autoimmune thyroiditis; Z79.899 Other long term (current) drug therapy; Z79.890 Hormone replacement therapy
CPT/HCPCS: 36415; 71046; 80053; 83605; 84484; 84702; 85025; 85610; 85730; 93005; 99282

== ENCOUNTER 2019-12-18 23:39 | Emergency (ER) | payer BC ==
[2019-12-19] MEDS ORDERED: NS 0.9% 1000 ML** 1,000 ML IV.FLUID IV ONE (00:04)
[2019-12-19] MEDS ORDERED: Acetaminophen TAB* 325 MG PO ONE (00:28)
--- NOTE | 2019-12-19 00:41 | ED ---
Skin Complaint - HPI Summary HPI Summary: Patient is a 34 year-old female presenting to [facility] with a chief complaint of diffuse rash and fever onset today with shortness of breath and chest pain for over a week. She reports that she was here 12/09/2019 for similar symptoms of chest pain and shortness of breath. A week ago she was tested for COVID-19 but had negative results as of 12/16/2019. Today, she developed a diffuse rash mostly on the trunk accompanied by a fever of 102.5F. She spoke with her infectious disease provider Dr. Singh, who recommended she come here for possible allergic reaction to the IV Ceftriaxone she is currently taking for Lyme disease. She endorses a sore throat and swollen lymph nodes. She denies any cough. She notes a small rash last week when she was here. Symptoms rated 3/ 10 in severity. She did not taken any medications for the fever or rash. She has not has not left her house since her COVID-19 test was taken. She notes that she often has tachycardia of unknown etiology despite workup with cardiology. Past medical history includes Hashimotos disease, Raynauds disease , benign axillary lymph node biopsy, eye surgery. Family history includes autoimmune disease, strokes, breast cancer. Nonsmoker, no EtOH, no substance use. Medications reviewed. Allergies noted. - History of Current Complaint Chief Complaint: EDGeneral Time Seen by Provider: 12/19/19 00:04 Stated Complaint: SOB PER PT Hx Obtained From: Patient Hx Last Menstrual Period: 12/03/19 Onset/Duration: Started Hours Ago - rash/fever, Started Days Ago - SOB/CP, Still Present Timing: Constant Onset Severity: Mild Current Severity: Mild Pain Intensity: 3 Pain Scale Used: 0-10 Numeric Skin Location: Diffuse - mostly on trunk Character: Redness Aggravating Symptom(s): Nothing Alleviating Symptom(s): Nothing Associated Signs & Symptoms: Difficulty Breathing, Fever, Chest Pain, Rash Related History: Other: - Lyme disease currently on IV Ceftriaxone - Allergy/Home Medications Allergies/Adverse Reactions: Allergies Allergy/AdvReac Type Severity Reaction Status Date / Time No Known Allergies Allergy Verified 12/18/19 23:45 Home Medications: Home Medications Adrenal Support 1 tab PO BID 04/08/19 [History Confirmed 12/06/19] Ascorbic Acid TAB* [Vitamin C TAB*] 1,000 mg PO DAILY 04/08/19 [History Confirmed 12/06/19] Magnesium Oxide [Magnesium] 400 mg PO DAILY 04/08/19 [History Confirmed 12/06/19 ] Thyroid,Pork [Industrial Tech Instructor Thyroid 15] 30 mg PO TID 04/08/19 [History Confirmed 12/06/19] Cholecalciferol TAB* [Vitamin D TAB*] 2,000 units PO DAILY 04/26/19 [History Confirmed 12/06/19] Cyanocobalamin TAB* [Vitamin B12 TAB*] 5,000 mcg PO DAILY 04/26/19 [History Confirmed 12/06/19] L.acidoph,Paracasei, B.lactis [Probiotic] 1 each PO DAILY 04/26/19 [History Confirmed 12/06/19] [place]-3 Fatty Acids/Dha/Epa [Ovega-3 500 mg] 1 cap PO DAILY 04/26/19 [History Confirmed 12/06/19] ALPRAZolam [Xanax] 1 tab PO DAILY PRN 07/07/19 [History Confirmed 12/06/19] Ibuprofen 400 mg PO ONCE PRN 07/07/19 [History Confirmed 12/06/19] Dgl 1 tab PO BID 11/07/19 [History Confirmed 12/06/19] Azithromycin TAB* [Zithromax TAB (Z-CHILANGO) 250 mg #6 tabs] 250 mg PO BID 12/06/19 [History Confirmed 12/06/19] Cbd Oil* 12/06/19 [History] cefTRIAXone 2 GM/100 ML NS [Rocephin 2 GM/100 ML] 2 gm IVPB DAILY 12/06/19 [ History Confirmed 12/06/19] PMH/Surg Hx/FS Hx/Imm Hx Endocrine/Hematology History: Reports: Hx Thyroid Disease - hashimotos, Other Endocrine/Hematological Disorders - Raynaud's Denies: Hx Diabetes Cardiovascular History: Denies: Hx Hypertension Respiratory History: Denies: Hx Asthma, Hx Chronic Obstructive Pulmonary Disease (COPD) GI History: Denies: Hx Ulcer Sensory History: Reports: Hx Contacts or Glasses Opthamlomology History: Reports: Hx Contacts or Glasses - Surgical History Surgical History: Yes Surgery Procedure, Year, and Place: eye surgery, Infectious Disease History: No Infectious Disease History: Reports: Hx Clostridium Difficile, History Other Infectious Disease - Lyme Denies: Hx Hepatitis, Hx Human Immunodeficiency Virus (HIV), Hx of Known/ Suspected MRSA, Hx Shingles, Hx Tuberculosis, Hx Known/Suspected VRE, Hx Known/ Suspected VRSA, Traveled Outside the [place] in Last 30 Days - Family History Known Family History: Positive: Hypertension, Diabetes, Other - strokes, breast cancer, autoimmune - Social History Alcohol Use: None Hx Substance Use: No Substance Use Type: Reports: None Hx Tobacco Use: No Smoking Status (MU): Never Smoked Tobacco - Additional Comments History Additional Comments: Hashimotos disease, Raynauds disease, Lyme disease Review of Systems - ROS Summary Review of Systems Summary: Home Medications Medication Instructions Recorded Confirmed Type Adrenal Support 1 tab PO BID 04/08/19 12/06/19 History Ascorbic Acid TAB* [Vitamin C 1,000 mg PO DAILY 04/08/19 12/06/19 History TAB*] Magnesium Oxide [Magnesium] 400 mg PO DAILY 04/08/19 12/06/19 History Thyroid,Pork [Industrial Tech Instructor Thyroid 15] 30 mg PO TID 04/08/19 12/06/19 History Cholecalciferol TAB* [Vitamin D 2,000 units PO DAILY 04/26/19 12/06/19 History TAB*] Cyanocobalamin TAB* [Vitamin B12 5,000 mcg PO DAILY 04/26/19 12/06/19 History TAB*] L.acidoph,Paracasei, B.lactis 1 each PO DAILY 04/26/19 12/06/19 History [Probiotic] [place]-3 Fatty Acids/Dha/Epa 1 cap PO DAILY 04/26/19 12/06/19 History [Ovega-3 500 mg] ALPRAZolam [Xanax] 1 tab PO DAILY PRN 07/07/19 12/06/19 History Ibuprofen 400 mg PO ONCE PRN 07/07/19 12/06/19 History Dgl 1 tab PO BID 11/07/19 12/06/19 History Azithromycin TAB* [Zithromax TAB 250 mg PO BID 12/06/19 12/06/19 History (Z-CHILANGO) 250 mg #6 tabs] Cbd Oil* 12/06/19 History cefTRIAXone 2 GM/100 ML NS 2 gm IVPB DAILY 12/06/19 12/06/19 History [Rocephin 2 GM/100 ML] Positive: Fever - 102.5F Positive: Sore Throat Positive: Chest Pain Positive: Shortness Of Breath. Negative: Cough Positive: Rash - diffuse, mostly on trunk All Other Systems Reviewed And Are Negative: Yes Physical Exam - Summary Physical Exam Summary: General: Well-developed, Thin female. Moderately anxious-appearing. No acute distress. HEENT: Normocephalic, Atraumatic. Eyes: Conjuctiva normal, PERRL. Oropharynx: Clear, mucous membranes moist, (-) exudates. Neck: Soft, FROM, (-) lymphadenopathy, (-) thyromegaly, (-) JVD. Cardiovascular: Normal sinus rhythm, (-) murmur. Lungs: Clear to auscultation bilaterally (-) wheezes, (-) rales, (-) rhonchi. Abdomen: Soft, non-tender, non-distended, (-) organomegaly, normal bowel sounds. Back: (-) CVA tenderness Extremities: No edema. PICC line site clean, dry, intact. Skin: Warm, dry, erythematous macules over trunk and back Neuro: Alert and oriented x3, moves all extremities equally. No ataxia. No gait disturbance. No sensory deficit. Normal strength, normal sensation. Psychiatric: Mood normal, affect normal. Triage Information Reviewed: Yes Vital Signs On Initial Exam: Initial Vitals Temp Pulse Resp BP Pulse Ox 102.4 F 156 18 122/87 97 12/18/19 23:41 12/18/19 23:41 12/18/19 23:41 12/18/19 23:41 12/18/19 23:41 Vital Signs Reviewed: Yes Procedures - Sedation Patient Received Moderate/Deep Sedation with Procedure: No Diagnostics - Vital Signs Vital Signs Temp Pulse Resp BP Pulse Ox 12/18/19 23:41 102.4 F 156 18 122/87 97 - Laboratory Result Diagrams: 12/19/19 00:15 12/19/19 00:15 Lab Statement: Any lab studies that have been ordered have been reviewed, and results considered in the medical decision making process. - Radiology CXR Radiology Interpretation Completed By: ED Physician Summary of Radiographic Findings: No pleural effusion. No infiltrate. This imaging scan was reviewed and interpreted by Dr. Lopez. Chest/Thorax CTA Radiology Interpretation Completed By: Radiologist Summary of Radiographic Findings: Impression: 1. No acute findings. 2. Right subclavian line with the tip in the mid superior vena cava. This report was reviewed by Dr. Lopez. - EKG 0014 Cardiac Rate: Tachycardia - 125 BPM EKG Rhythm: Sinus Tachycardia Summary of EKG Findings: EKG at 0014 reveals sinus tachycardia with rate of 125 BPM, no acute changes, no ischemic changes. This EKG was reviewed and interpreted by Dr. Lopez. Re-Evaluation - Re-Evaluation First Eval Re-Evaluation Time: 02:20 Comment: urine negative, d-dimer elevated, CTA ordered Second Eval Re-Evaluation Time: 03:50 Change: Improved Comment: I discussed all results. Fever has resolved. Discussed all symptoms that warrant return to the ED. Course/Dx - Course Course Of Treatment: 34-year-old female presents from home with fever and rash. Patient with a very complicated history of Lyme disease currently on Rocephin through a PICC line. Patient states she developed a rash this morning. Also has a fever now up to 102.5. Did not take anything for her fever. Denies any cough. No urinary symptoms. No vomiting or diarrhea. Patient has no localizing symptoms on physical except for her rash which is erythematous macules over mostly her trunk. Not itchy. Her ID doctor thinks it might be her antibiotic, Rocephin. Patient is tachycardic and febrile upon arrival. Patient received fluids and Tylenol for fever in the ED. workup demonstrates elevated d-dimer. No signs of infection in the urine. Influenza negative. Pike negative. Fever reduced with Tylenol. CT chest demonstrates no obvious infection or PE. Patient discharged home. Call ID office in the morning for instructions regarding antibiotics. Follow-up sooner for any worsening symptoms. - Diagnoses Provider Diagnoses: Rash, Fever Discharge ED - Sign-Out/Discharge Documenting (check all that apply): Patient Departure - Patient will be discharged home. - Discharge Plan Condition: Stable Disposition: HOME Patient Education Materials: Fever in Adults (ED), Acute Rash (ED) Referrals: Rachel Darden MD [Primary Care Provider] - 3 Days Additional Instructions: Follow up with your primary care provider in 2-3 days. Return to the emergency department for any new or worsening symptoms. - Billing Disposition and Condition Condition: STABLE Disposition: Home - Attestation Statements Document Initiated by Scribe: Yes Documenting Scribe: Vivian Price Provider For Whom Scribe is Documenting (Include Credential): Maria Antonia Lopez MD Scribe Attestation: I, Vivian Price, scribed for Maria Antonia Lopez MD on 12/19/19 at 0559. Scribe Documentation Reviewed: Yes Provider Attestation: The documentation as recorded by the scribe, Vivian Price accurately reflects the service I personally performed and the decisions made by me, Maria Antonia Lopez MD Status of Scribe Document: Viewed
[2019-12-19 00:42] LABS: ABS Lymphocytes 0.5 10^3/ul (1.0-4.8); ABS Monocytes 0.3 10^3/ul (0-0.8); ABS Neutrophils 3.1 10^3/ul (1.5-7.7); Eosinophil % 0.2 %; Hematocrit 37 % (35-47); Hemoglobin 12.6 g/dL (12.0-16.0); Lymphocyte % 13.8 %; Mean Corpuscular HGB Conc 34 g/dL (31-36); Mean Corpuscular Hemoglobin 29 pg (27-31); Mean Corpuscular Volume 84 fL (80-97); Platelet Count 134 10^3/uL (150-450); Red Blood Count 4.37 10^6 /uL (3.70-4.87); Red Cell Distribution Width 14 % (10-15)
[2019-12-19 00:50] LABS: Activated Partial Thrombo Time 34.3 seconds (26.0-38.0); INR 1.03 (0.82-1.09)
[2019-12-19 01:02] LABS: Albumin 4.2 g/dL (3.2-5.2); Albumin/Globulin Ratio 1.6 (1-3); C Reactive Protein 11.8 mg/L (<8.01); Calcium 9.1 mg/dL (8.6-10.3); EGFR African American 115.9 (>60); EGFR Non-African American 95.8 (>60); Globulin 2.7 g/dL (2-4); Potassium 3.7 mmol/L (3.5-5.0); Total Bilirubin 0.5 mg/dL (0.2-1.0); Total Protein 6.9 g/dL (6.4-8.9)
[2019-12-19 01:19] LABS: Influenza A Molecular Negative (Negative); Influenza B Molecular Negative (Negative)
[2019-12-19 01:51] LABS: Urine Appearance Clear; Urine Bilirubin Negative (Negative); Urine Blood Negative (Negative); Urine Color Straw; Urine Glucose Negative (Negative); Urine Ketones 1+ (Negative); Urine Nitrite Negative (Negative); Urine Protein Negative (Negative); Urine Specific Gravity 1.003 (1.010-1.030); Urine Urobilinogen Negative (Negative)
[2019-12-19 01:53] LABS: Erythrocyte Sed Rate 8 mm/Hr (0-19)
[2019-12-19] MEDS ORDERED: Iohexol 350* (CONTRAST) 500 ML MDV IV ONE (02:44)
--- OUTSIDE RECORDS SUMMARY | 2019-12-19 04:25 | XMS REPORT | Continuity of Care Document ---
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 Thyroid Unknown 15mg Tablets Vitamin B-12 1 by mouth every Unknown Natural day (takes 5000mg 500mcg daily) Tablets Vitamin D 1 by mouth every Unknown 2000Unit day in winter Capsules (dosage unspecified)(not taking currently) Probiotic 1 by mouth every Unknown Capsules day (2 billion cfu) Super [place] 3 daily Unknown Epa/Dha 1000mg Capsules Magnesium [...] Result H/L Range Note Laboratory test 11/07/2019 [facility] Clotest SEE RESULT [address] [address] [phone] CBC Auto Diff 10/08/2019 [facility] White Blood 6.1 10^3/uL Normal 3.5-10.[address] [place] [place] [address] [phone] Red Blood Count 4.79 10^6/uL Normal 3.70-4.87 [...] Blood Cells % 0.1 Comp Metabolic 10/08/2019 [facility] Sodium 138 mmol/L Normal 135-[address] [place] [address] [phone] Potassium 4.2 mmol/L Normal 3.5-5.0 Chloride 103 [...] >60 Egfr 121.9 >60 2 Laboratory 10/08/2019 [facility] Free T4 (Free 0.98 Normal 0.61-1.[address] Thyroxine) ng/[place] [address] [phone] T3 Total 104 ng/dL Normal 87-178 TSH (Thyroid Stim Horm) 2.24 mcIU/mL Normal 0.34-5.60 Cytology 08/30/2019 [facility] Cytology SEE RESULT BELOW 3 , [address] [place] [address] [phone] PDFReport SEE IMAGE 1 SEE RESULT BELOW Name: BERNICE LOCKWOOD : [address]: Kartik Marina MD Acct: [id number] Unit: [id number] AGE: 34 Location: [facility] Re11/07/19 SEX: F Status: DEP REF SPEC: [id number] TAYLA: 11/07/19-[address] [facility] [address]: Kartik Marina MD REQ: [id number] RECD: 11/07/19 STATUS: JH PORRAS DR: Rachel Hernandez PA _ SOURCE: GAS ANTRUM SPDESC: ORDERED: Clotest Procedure Result Reported Site Clotest Final 11/08/19821 ML Clotest Negative * ML - Main Lab . END OF REPORT DEPARTMENT OF PATHOLOGY, [address] [place] [id number] Byron Eric M.D. Director [facility] # [id number] 2 Because ethnic data is not always [...] 5 Kidney failure <15 (or dialysis) 3 [id number] 4 SEE RESULT BELOW Name: BERNICE LOCKWOOD : [address]: Vandana Greene NP, CNM Acct: [id number] Unit: [id number] AGE: 34 Location: [facility] Re08/30/19 SEX: F Status: REG REF SPEC: [id number] TAYLA: 08/30/19-[address] [facility] [address]: Vandana Greene NP, CNM REQ: [id number] RECD: 08/30/19 STATUS: SOUT _ ORDERED: TP IMAGE ANALYS, HPV/Thin Prep, HPV 16/18 GENE COMMENTS: [id number] FINAL DIAGNOSIS Negative for Intraepithelial lesion or [...] CONTINUED ON NEXT PAGE DEPARTMENT OF PATHOLOGY, [address] [place] [address] Byron Eric M.D. Director [facility] # [id number] CYTOLOGY PATIENT INFORMATION Patient Information: HPV: High risk HPV RNA testing regardless of pap results. HPV 16/18 Genotype Reflex Actual Specimen Date: 08/30/19 LMP If Unknown: Last Menstrual Period Not Given. ?: N Post Menopausal?: N Hysterectomy?: N Previous Abnormal Pap Smears?:N Signed by and Reported on: AYIMA Del Castillo (ASCP) 1202 This Pap test was evaluated with the assistance of the ITS [employer] Test Imaging System. Due to cytologic findings at the filter assembler microscope, comprehensive manual rescreening by a Oil Field Technician may be required. The Pap Smear is [...] years. END OF REPORT DEPARTMENT OF PATHOLOGY, [address] [place] [address] Byron Eric M.D. Director [facility] # [id number] Procedures Description No Information Available Medical Devices Description No Information Available Encounters Type Date Location Provider Dx Diagnosis Office Visit 11/19/2019 [facility] Elma F41.9 Anxiety disorder, 8:30a [facility] GARRETT Hernandez unspecified A69.20 Lyme disease, unspecified Office Visit 10/08/2019 4:00p [facility] GARRETT Ferraro R51 Headache [facility] F41.9 Anxiety disorder, unspecified R20.2 Paresthesia of skin Office Visit 08/30/2019 8:00a [facility] Vandana Greene, Z01.419 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 [facility] SCCM ADMINISTRATOR-Cde exam (general) (routine) w/o abn findings N64.59 Other signs and symptoms in breast N81.89 Other female genital prolapse 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 Office Visit 08/05/2019 2:00p [facility] [place] Hernandez N94.3 Premenstrual [facility] PA tension syndrome G50.1 Atypical facial pain R53.83 Other fatigue R19.7 Diarrhea, unspecified Office Visit 07/11/2019 1:00p [facility] [place] Hernandez N94.3 Premenstrual [facility] PA tension syndrome R19.7 Diarrhea, unspecified [...] 08/30/2019 Z01.419 Encounter for gynecological examination WILBERT Mendez-Tom (general) (routine) without abnormal findings 08/30/2019 N64.59 [...] Appointment(s):02/18/2020 10:30 am - GARRETT Ferraro at [facility]01/14/2020 9:30 am - GRARETT Ferraro at [facility]12/19/2019 11:00 am - GARRETT Ferraro at [facility]11/19/2019 - [place] Hernandez PAF41.9 Anxiety disorder, [...] Kelly PT, OCS Created [address] [place] [address] [phone] Serafin Bowie MD Sent [address] [place], [place] [id number] [phone]
--- OUTSIDE RECORDS SUMMARY | 2019-12-19 04:25 | XMS REPORT | Continuity of Care Document ---
:1985 External Reference #:[id number] Author Name Rachel Anaya M.D., RVonDVon (transmitted by agent of provider Steffi Marie) Address [address] [place] [address] Care Team Providers Name Role Phone Unavailable Care Team Information Vehicle Window Tinter Unavailable Problems Description No Information Available Social History Type Date Description Comments Sex Unknown Tobacco Use Start: Unknown Patient has never smoked Smoking Status Reviewed: 07/12/19 Patient has never smoked Allergies, Adverse Reactions, Alerts Description No Known Drug Allergies Medications Active Medications SIG Qnty Indications Ordering Date Provider Nebulizer without nebulizer, 1units Rachel Anaya, 12/12/2019 Kit/Tubing/Mouthpiec just the tubing M.D., R.D. e and mouthpiece Kit needed to use as directed with nebulizer Alprazolam 1 by mouth as 20tabs Rachel Anaya, 12/09/2019 0.5mg needed as needed M.D., R.D. Tablets for anxiety Albuterol Sulfate use one vial in 75ml Rachel Anaya, 12/09/2019 nebulizer 3 t M.D., R.D. 1.25mg/3ML Nebulizer times daily VSL#3 Take 1 Capsule By 30caps Rachel Anaya, 12/02/2019 Capsules Mouth Every Day M.DVon, R.D. CBD 50MG by mouth every day Rachel Anaya, 11/28/2019 Maryann, R.D. Low Dose Naltrexone 1.5 mg daily for 2 42units A69.20 Rachel Anaya, 01/2020 weeks, then 3 mg M.D., R.D. 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 Thyroid 1 tablet by mouth 270tabs Rachel Anaya, 09/12/2019 30mg three times daily Madhav Wolf Tablets Heparin Sodium Lock Unknown Flush 100Unit/ML Solution Ceftriaxone 1 time day Unknown Sodium-Dextrose 2-2.22GM-%(50ML) Solution Rec Grapefruit Seed 1 by mouth every Unknown Extract "Defence day Plus" Azithromycin Unknown 250mg Tablets Progesterone day 14-28 of Unknown Compounding Kit menstral cycle 20% Cream Magnesium 1 by mouth every Unknown Capsules day Vitamin D3 prn Unknown Capsules Probiotic Unknown Capsules Vitamin B Complex 1 per day Unknown Tablets History Medications VSL#3 1 po qd 30caps Rachel Anaya, 11/28/2019 - 112.5Bil Maryann RVonDVon 12/02/2019 Capsules Amoxicillin/Clavula take 1 tablet by 14tabs Kristan Potter NP 09/26/2019 - jessica Potassium mouth twice daily 10/08/2019 for 7 days for 875-125mg Tablets tonsillitis Medications Administered in Office Medication SIG Qnty Indications Ordering Provider Date TB,Intradermal (PPD, [place]) Lab [facility] Office Services 09/11/2018 Injection Immunizations CPT Code Status Date Vaccine Lot # [id number] Refused 10/08/2019 Influenza Virus Vaccine, Quadrivalent, 3 Yr > Quad , Preserv Free [id number] Refused 09/26/2019 Influenza Virus Vaccine, Quadrivalent, 3 Yr > Quad , Preserv Free [id number] Refused 09/12/2019 Influenza Virus Vaccine, Quadrivalent, 3 Yr > Quad , Preserv Free [id number] Refused 06/20/2018 Influenza Virus Vaccine, Quadrivalent, 3 Yr > Quad , Preserv Free Vital Signs Date Vital Result Comment 12/09/2019 4:15pm Weight 106.00 lb Weight 48.082 kg BP Systolic 100 mmHg BP Diastolic 60 mmHg Heart Rate 125 /min Body Temperature 99.5 F Respiratory Rate 16 /min O2 % BldC Oximetry 99 % 11/28/2019 11:48am Weight 108.00 lb Weight 48.989 kg BP Systolic 100 mmHg BP Diastolic 60 mmHg Heart Rate 98 /min Body Temperature 99.1 F Respiratory Rate 16 /min O2 % BldC Oximetry 100 % Results Test Acquired Date Facility Test Result H/L Range Note Laboratory test 12/11/2019 [facility] Covid19, Undetected 1 finding [phone] PCR CBC Auto Diff 12/09/2019 [facility] White 6.3 10^3/ uL Normal 3.5-10.8 [phone] Blood Count Red Blood Count 4.44 10^6/uL Normal 3.70-4.87 Hemoglobin 12.8 g/dL Normal 12.0-16.0 Hematocrit 37 % Normal 35-47 Mean Corpuscular Volume 84 fL Normal 80-97 Mean Corpuscular Hemoglobin 29 pg Normal 27-31 Mean Corpuscular HGB Conc 34 g/dL Normal 31-36 Red Cell Distribution Width 14 % Normal 10-15 Platelet Count 272 10^3/uL Normal 150-450 Mean Platelet Volume 7.9 fL Normal 7.4-10.4 Abs Neutrophils 3.5 10^3/uL Normal 1.5-7.7 Abs Lymphocytes 2.3 10^3/uL Normal 1.0-4.8 Abs Monocytes 0.4 10^3/uL Normal 0-0.8 Abs Eosinophils 0.0 10^3/uL Normal 0-0.6 Abs Basophils 0.1 10^3/uL Normal 0-0.2 Abs Nucleated RBC 0.0 10^3/uL Granulocyte % 56.0 % Lymphocyte % 36.4 % Monocyte % 5.7 % Eosinophil % 0.7 % Basophil % 1.2 % Nucleated Red Blood Cells % 0.1 Inr/Protime 12/09/2019 [facility] Inr 1.10 High 0.82-1.09 2 [phone] Laboratory test 12/09/2019 [facility] Partial 35.0 Normal 26.0-38.0 finding [phone] Thrombo seconds Time PTT Lactic Acid 0.6 mmol/L Normal 0.5-2.0 3 Troponin-I (TnI) 0.00 ng/mL <0.03 4 HCG < 0.60 mIU/mL 5 Comp Metabolic 12/09/2019 [facility] Sodium 139 mmol/ L Normal 135-145 Panel [phone] Potassium 3.9 mmol/L Normal 3.5-5.0 Chloride 104 mmol/L Normal 101-111 Co2 Carbon Dioxide 26 mmol/L Normal 22-32 Anion Gap 9 mmol/L Normal 2-11 Calcium 9.4 mg/dL Normal 8.6-10.3 Albumin 4.5 g/dL Normal 3.2-5.2 Total Bilirubin 0.40 mg/dL Normal 0.2-1.0 Glucose 73 mg/dL Normal 70-100 Blood Urea Nitrogen 6 mg/dL Normal 6-24 Creatinine 0.65 mg/dL Normal 0.51-0.95 BUN/Creatinine Ratio 9.2 Normal 8-20 Total Protein 6.7 g/dL Normal 6.4-8.9 Globulin 2.2 g/dL Normal 2-4 Albumin/Globulin Ratio 2.0 Normal 1-3 Alkaline Phosphatase 28 U/L Low 34-104 Alt 15 U/L Normal 7-52 Ast 18 U/L Normal 13-39 Egfr Non- 104.3 >60 Egfr 126.3 >60 6 CBC Auto 12/09/2019 [facility] White Blood 6.0 10^3/ uL Normal 3.5-10.8 Diff [phone] Count Red Blood Count 4.75 10^6/uL Normal 3.70-4.87 Hemoglobin 13.5 g/dL Normal 12.0-16.0 Hematocrit 40 % Normal 35-47 Mean Corpuscular Volume 84 fL Normal 80-97 Mean Corpuscular Hemoglobin 28 pg Normal 27-31 Mean Corpuscular HGB Conc 34 g/dL Normal 31-36 Red Cell Distribution Width 14 % Normal 10-15 Platelet Count 278 10^3/uL Normal 150-450 Mean Platelet Volume 8.7 fL Normal 7.4-10.4 Abs Neutrophils 4.0 10^3/uL Normal 1.5-7.7 Abs Lymphocytes 1.6 10^3/uL Normal 1.0-4.8 Abs Monocytes 0.3 10^3/uL Normal 0-0.8 Abs Eosinophils 0.1 10^3/uL Normal 0-0.6 Abs Basophils 0.0 10^3/uL Normal 0-0.2 Abs Nucleated RBC 0.0 10^3/uL Granulocyte % 66.7 % Lymphocyte % 26.2 % Monocyte % 5.1 % Eosinophil % 1.2 % Basophil % 0.8 % Nucleated Red Blood Cells % 0.1 Laboratory 12/07/2019 [facility] C Difficile SEE RESULT 7 test finding [phone] PCR BELOW MTHFR 11/28/2019 [facility] MTHFR C677T Heterozygous Abnormal Negative 8 Mutation [phone] Mutation Detection MTHFR Interpretation See Comment 9 MTHFR Reviewed By See Comment MTHFR P5749s Mutation Negative Negative Mthac Interpretation See Comment 10 Mthac Reviewed By See Comment 11 Laboratory test 11/07/2019 [facility] Clotest SEE RESULT 12 finding [phone] BELOW Ebv Kristin Rivera 10/08/2019 [facility] Ebv Capsid Positive Negative Comprehensive [phone] Ag IgG Ab Ebv Capsid Ag IgM Ab Negative Negative Kristin-Rivera Nuclear Antigen Positive Negative Kristin-Rivera Virus Interp See Comment 13 Laboratory 10/08/2019 [facility] TSH (Thyroid 2.24 Normal 0.34-5.60 test finding [phone] Stim Horm) mcIU/mL T3 Total 104 ng/dL Normal 87-178 Free T4 (Free Thyroxine) 0.98 ng/dL Normal 0.61-1.12 Tick-Borne 10/08/2019 [facility] Anaplasma <1:64 < 1:64 14 Disease AB [phone] phagocytophilium titer Panel Babesia microti IgG Ab, S <1:64 titer <1:64 15 Ehrlichia chaffeensis IgG AB <1:64 titer <1:64 16 Lyme Disease Serology Negative Negative 17 Laboratory test 10/08/2019 [facility] Hemoglobin A1c 5.0 % Normal 4.0-5.6 18 finding [phone] Lyme Screen W/ Reflex To WB Negative Negative Comp Metabolic 10/08/2019 [facility] Sodium 138 mmol/ L Normal 135-145 Panel [phone] Potassium 4.2 mmol/L Normal 3.5-5.0 Chloride 103 [...] Egfr Non- 100.8 >60 Egfr 121.9 >60 19 CBC Auto 10/08/2019 [facility] White Blood 6.1 10^3/ uL Normal 3.5-10.8 Diff [phone] Count Red Blood Count 4.79 10^6/uL Normal [...] % Nucleated Red Blood Cells % 0.1 Laboratory test 09/26/2019 [facility] House [facility] Strep Screen NEG Neg finding [phone] - Laboratory test 09/12/2019 [facility] TSH (Thyroid 2.65 Normal 0.34-5. 20, 21 finding [phone] Stimulating mcIU/mL 60 Horm) Total T3 117 ng/dL Normal 87-178 22 Free T4 0.75 ng/dL Normal 0.61-1.12 23 Thyroperoxidase AB 231.98 IU/mL High <9 24 Vitamin B12 1142 pg/mL High 180-914 25 Vitamin D Total 25(Oh) 30.2 ng/mL Normal 20-50 26 Free T3 3.90 pg/mL Normal 2.5-3.9 27 Urine DIP 09/12/2019 In House Lab Leukocytes neg Neg (607)- - Urine Nitrites neg Neg Urobilinogen norm Norm Total Protein Urine neg Neg Urine pH 6.0 5-6 Urine Blood neg Neg Specific [place] 1.02 1.01-1.02 Urine Ketones neg Neg Urine Bilirubin neg Neg Urine Glucose norm Norm Mumps Igg 07/12/2019 [facility] Mumps Virus IgG Positive 28, 29 [phone] Antibody Mumps IgG Antibody Index 3.1 30 Laboratory test 07/12/2019 [facility] Rubella Screen Immune Immune 31 finding [phone] Rubeola Measles 07/12/2019 [facility] Rubeola Negative 32 Igg AB [phone] (Measles) IgG Antibody Rubeola IgG Antibody Index 0.7 33 1 SARS-CoV-2 RNA is not detected. ADDITIONAL INFORMATION Testing was performed using the glenn SARS-CoV-2 assay ([employer] on the glenn 6800 System. Fact sheets for this Emergency Use Authorization (EUA) assay can be found at the following links: For Healthcare Providers: https://www.fda.gov/media/652162/download For Patients: https://www.fda.gov/media/620877/download Test Performed by: [facility] [address] [place] [address] Coil Wrapper: Dyllan Armendariz M.D. Ph.D.; CLIA# [id number] 2 Standard intensity warfarin therapeutic range: 2.0-3.0 High intensity warfarin therapeutic range: 2.5-3.5 3 CAS Severe Sepsis and Septic Shock Management Bundle Measure requires all lactic acids initially measuring >2.0 mmol/L be repeated. 4 Troponin-I testing on Plasma Separator Tubes (PST) has a known false positive rate of 0.20-0.40%. All positive troponins reflex immediately to secondary confirmatory testing. Using the [employer] DxI 800 Access Immunoassay systems, the 99th percentile upper reference limit was demonstrated to be < 0.03 ng/mL. 5 <5.0 Negative 5.0 - 25.0 Indeterminate (Repeat testing recommended after 72 hours) >25.0 Positive Perimenopausal women can display HCG levels of up to 20 mIU/mL 6 Because ethnic data is not always readily [...] 15-29 5 Kidney failure <15 (or dialysis) 7 SEE RESULT BELOW Name: BERNICE LOCKWOOD : [address]: Rachel Anaya MD Acct: [id number] Unit: [id number] AGE: 34 Location: [facility] Re12/07/19 SEX: F Status: REG REF SPEC: [id number] TAYLA: 12/07/[address] [facility] [address]: Rachel Anaya MD REQ: [id number] RECD: 12/07/19 STATUS: COMP _ SOURCE: STOOL SPDESC: ORDERED: C. diff PCR Procedure Result Reported Site Stool Specimen Description Final 12/09/19- 1634 ML Test not performed C. difficile PCR Final 12/09/19- 1634 ML Organism 1 027 Presumptive NEGATIVE Organism 2 Toxigenic C.diff NEGATIVE As with all diagnostic procedures, the laboratory results obtained should be used in conjunction with other clinical information available to the physician, including confirmation by another method, as applicable. * ML - Main Lab . END OF REPORT DEPARTMENT OF PATHOLOGY, [address] [place] [address] Byron Eric M.D. 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 MTHFR C677T carriers are not at increased risk for thrombosis in the absence of hyperhomocysteinemia. In the absence of alternative causes, heterozygous carriers of MTHFR C677T are not at increased risk for hyperhomocysteinemia. Hyperhomocysteinemia is a relatively weak risk factor for both venous thromboembolism and arterial thrombosis. The MTHFR C677T gene mutation test does not detect other causes of hyperhomocysteinemia due to acquired disorders (renal failure, zinc deficiency, leukemia, psoriasis, or antifolate drug therapy). If clinically indicated, suggest Coagulation Consultation 22958 (Thrombophila Profile) to complete the evaluation for an inherited or acquired thrombosing disorder (i.e., thrombophilia). Consider genetic consultation and counseling of potentially affected family members regarding laboratory testing. ADDITIONAL INFORMATION This test is a direct mutation analysis using PCR amplification, signal generation and release by cleavage of sequence specific alleles ([employer], [employer], [place], [place]). This test has been modified from the addiction treatment counselor's instructions. Its performance characteristics were determined by [facility] in a manner consistent with CLIA requirements. This test has not been cleared or approved by the U.S. Food and Drug Administration. 10 This individual DOES NOT have the Methylenetetrahydrofolate reductase (MTHAC) Q8319N gene mutation. In the absence of the MTHAC L0802P gene mutation, other causes of hyperhomocysteinemia should be considered (renal failure, zinc deficiency, leukemia, psoriasis, or antifolate drug therapy). If clinically indicated, suggest Coagulation Consultation 18512 (Thrombophilia Profile) to complete the evaluation for an inherited or acquired thrombosing disorder (i.e., thrombophilia). Consider genetic consultation and counseling of potentially affected family members regarding laboratory testing. ADDITIONAL INFORMATION This test is a direct mutation analysis using PCR amplification, signal generation and release by cleavage of sequence specific alleles ([employer], [employer], [place], [place]). This test has been modified from the addiction treatment counselor's instructions. Its performance characteristics were determined by [facility] in a manner consistent with CLIA requirements. This test has not been cleared or approved by the U.S. Food and Drug Administration. 11 This test is a direct mutation analysis using PCR amplification, signal generation and release by cleavage of sequence specific alleles ([employer], [employer], [place], [place]). This test has been modified from the addiction treatment counselor's instructions. Its performance characteristics were determined by [facility] in a manner consistent with CLIA requirements. This test has not been cleared or approved by the U.S. Food and Drug Administration. Test Performed by: [place] [address] Coil Wrapper: Dyllan Armendariz M.D. Ph.D.; CLIA# [id number] 12 SEE RESULT BELOW Name: BERNICE LOCKWOOD : [address]: Kartik Marina MD Acct: [id number] Unit: [id number] AGE: 34 Location: [facility] Re11/07/19 SEX: F Status: DEP REF SPEC: [id number] TAYLA: 11/07/19-[address] [facility] [address]: Kartik Marina MD REQ: [id number] RECD: 11/07/19-1332 STATUS: [facility] DR: Rachel Hernandez PA _ SOURCE: GAS ANTRUM SPDESC: ORDERED: Clotest Procedure Result Reported Site Clotest Final 11/08/19- 821 ML Clotest Negative * ML - Main Lab . END OF REPORT DEPARTMENT OF PATHOLOGY, [address] [place] [address] Byron Eric M.D. Director [facility] # [id number] RESULT: Results suggest past infection. ADDITIONAL INFORMATION [...] primary infection with EBV. Test Performed by: [facility] - [address] [address] Coil Wrapper: Dyllan Armendariz M.D. Ph.D.; CLIA# [id number] 14 ADDITIONAL INFORMATION This test was developed using an analyte specific reagent. Its performance characteristics were determined by [facility] in a manner consistent with CLIA requirements. This test has not been cleared or approved by the U.S. Food and Drug Administration. 15 ADDITIONAL INFORMATION This test was developed using an analyte specific reagent. Its performance characteristics were determined by [facility] in a manner consistent with CLIA requirements. This test has not been cleared or approved by the U.S. Food and Drug Administration. 16 ADDITIONAL INFORMATION This test was developed using an analyte specific reagent. Its performance characteristics were determined by [facility] in a manner consistent with CLIA requirements. This test has not been cleared or approved by the U.S. Food and Drug Administration. 17 No evidence of antibodies to B. burgdorferi detected. False negative results may occur in recently infected patients (<=2 weeks) due to low or undetectable antibody levels to B. burgdorferi. If recent exposure is suspected, a second sample should be collected and tested in 2-4 weeks. Test Performed by: [place] [address] Coil Wrapper: Dyllan Armendariz M.D. Ph.D.; CLIA# [id number] 18 Therapeutic target for the treatment of diabetes mellitus patients is <7% HBA1C, and in selective patients <6.0%. Please refer to [employer] diabetic care guidelines for further information. 19 Because ethnic data is not always readily [...] 15-29 5 Kidney failure <15 (or dialysis) 20 [id number] 21 [id number] 22 [id number] 23 [id number] 24 [id number] 25 Normal Range 180 to 914 Indeterminate Range 145 to 180 Deficient Range <145 26 Total 25-Hydroxyvitamin D2 and D3 (25-OH-VitD) <10 ng/mL (severe deficiency) 10-19 ng/mL (mild to moderate deficiency) 20-50 ng/mL (optimum levels) 51-80 ng/mL (increased risk of hypercalciuria) >80 ng/mL (toxicity possible) 27 [id number] 28 [id number] 29 Results suggest response to immunization or prior exposure to the virus. REFERENCE VALUE Vaccinated: Positive (>=1.1 AI) Unvaccinated: Negative (<=0.8 AI) 30 Test Performed by: [place] [address] Coil Wrapper: Dyllan Armendariz M.D. Ph.D.; CLIA# [id number] 31 [id number] 32 REFERENCE VALUE Vaccinated: Positive (>=1.1 AI) Unvaccinated: Negative (<=0.8 AI) 33 Test Performed by: [place] [address] Coil Wrapper: Dyllan Armendariz M.D. Ph.D.; CLIA# [id number] Procedures Description No Information Available Medical Devices Description No Information Available Encounters Type Date Location Provider Dx Diagnosis [facility] pain, 11:00a M.D., R.D. unspecified R06.02 Shortness of breath R21 Rash and other nonspecific skin eruption A69.20 Lyme disease, unspecified Office Visit 12/09/2019 4:00p Main Office Rachel Anaya, R21 Rash and other M.D., R.D. nonspecific skin eruption R06.02 Shortness of breath R00.0 Tachycardia, unspecified R07.9 Chest pain, unspecified Office Visit 11/28/[address] [facility] Rachel Anaya, A69.20 Lyme disease, 11:30a M.Felecia, R.D. unspecified E72.12 Methylenetetrahydrofolate reductase deficiency Office Visit 11/04/2019 Main Office Rachel Anaya, K21.0 Gastro- esophageal 11:45a Maryann, R.D. reflux disease with esophagitis A69.20 Lyme disease, unspecified Office Visit 10[facility]08[facility]2019 [facility] M.[facility]., R51 Headache R.D. R42 Dizziness and giddiness Office Visit 09/26/2019 11:15a [facility] Kristan J03.90 Acute tonsillitis, SABIHA Potter unspecified F41.9 Anxiety disorder, unspecified N60.01 Solitary cyst of right breast Office Visit 09/12/2019 3:30p [facility] Kristan Potter, E06.3 Autoimmune F[employer] REPAIRER thyroiditis Office Visit 07/26/2019 2:30p [place] Jabari Potter, F41.9 Anxiety disorder, F[employer]ING INSTRUMENT REPAIRER unspecified R19.7 Diarrhea, unspecified F90.0 Attn-defct hyperactivity disorder, predom inattentive type E06.3 Autoimmune thyroiditis R53.82 Chronic fatigue, unspecified Office Visit 07/12/2019 1:15p [place], Z00.00 Encntr for FRETTED [employer]ING INSTRUMENT REPAIRER general adult medical exam w/o abnormal findings Z01.84 Encounter for antibody response examination R19.7 Diarrhea, unspecified K13.79 Other lesions of oral mucosa Office Visit 07/08/2019 11:15a Main Office Kristan Potter, R19.7 Diarrhea, FRETT[employer]ING INSTRUMENT REPAIRER unspecified F41.9 Anxiety disorder, unspecified K13.79 Other lesions of oral mucosa Assessments Date Code Description Provider 12/12/2019 R07.9 Chest pain, unspecified Rachel Anaya M.D., R.D. 12/12/2019 R06.02 Shortness of breath Rachel Anaya M.D., R.D. 12/12/2019 R21 Rash and other nonspecific skin eruption Rachel Anaya M.D. , R.D. 12/12/2019 A69.20 Lyme disease, unspecified Rachel Anaya M.D., R.D. 12/09/2019 R21 Rash and other nonspecific skin eruption Rachel Anaya M.D. , R.D. 12/09/2019 R06.02 Shortness of breath Rachel Anaya M.D., R.D. 12/09/2019 R00.0 Tachycardia, unspecified Rachel Anaya M.D., R.D. 12/09/2019 R07.9 Chest pain, unspecified Rcahel Anaya M.D., R.D. 11/28/2019 A69.20 Lyme disease, unspecified Rachel Anaya M.D., R.D. 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 11/04/2019 K21.0 Gastro-esophageal reflux disease with Rachel Anaya M.D., esophagitis R.D. 11/04/2019 A69.20 Lyme disease, unspecified Rachel Anaya M.D., R.D. 10/08/2019 R51 Headache Rachel Anaya M.D., R.D. 10/08/2019 R42 Dizziness Rachel Anaya M.D., R.D. 09/26/2019 J03.90 Acute tonsillitis, unspecified Kristan Potter, F[employer]ING INSTRUMENT REPAIRER 09/26/2019 F41.9 Anxiety disorder, unspecified Kristan Potter, F[employer]ING INSTRUMENT REPAIRER 09/26/2019 N60.01 Solitary cyst of right breast Kristan Potter, FRE[employer]ING INSTRUMENT REPAIRER 09/12/2019 E06.3 Autoimmune thyroiditis Kristan Potter, FRE[employer]ING INSTRUMENT REPAIRER 07/26/2019 F41.9 Anxiety disorder, unspecified Kristan Potter, FRETT[employer] STRING INSTRUMENT REPAIRER 07/26/2019 R19.7 Diarrhea, unspecified Kristan Potter, FRE[employer] STRING INSTRUMENT REPAIRER 07/26/2019 F90.0 Attention-deficit hyperactivity disorder, Kristan Potter, F[employer]ING INSTRUMENT REPAIRER predominantly inat 07/26/2019 E06.3 Autoimmune thyroiditis Kristan Potter, F[employer]ING INSTRUMENT REPAIRER 07/26/2019 R53.82 Chronic fatigue, unspecified Kristan Potter, F[employer]ING INSTRUMENT REPAIRER 07/12/2019 Z00.00 Encounter for general adult medical Kristan PotterSABIHA examination without abnormal findings 07/12/2019 Z01.84 Encounter for antibody response Kristan Potter, F[employer]ING INSTRUMENT REPAIRER examination 07/12/2019 R19.7 Diarrhea, unspecified Kristan Potter, F[employer] STRING INSTRUMENT REPAIRER 07/12/2019 K13.79 Other lesions of oral mucosa Kristan Potter, F[employer] STRING INSTRUMENT REPAIRER 07/08/2019 R19.7 Diarrhea, unspecified Kristan Potter, F[employer]ING INSTRUMENT REPAIRER 07/08/2019 F41.9 Anxiety disorder, unspecified Kristan Potter, F[employer]ING INSTRUMENT REPAIRER 07/08/2019 K13.79 Other lesions of oral mucosa Kristan PotterSABIHA Plan of Treatment Future Appointment(s):01/31/2020 3:30 pm - Rachel Anaya M.D., R.D. at [facility] Functional Status Description No Information Available Mental Status Description No Information Available Referrals Refer to Reason for Referral Status Appt Date [facility] Referral to [facility] Neurology Patient Declined for evaluation - headache and vision changes. - - Please contact Pt to schedule appt. - - Please fax appointment date/time to [facility], . [facility] [address] [place] [address] [phone] Sophia Sandoval PA Referral to GI associates for Patient Declined 2018 consult. [facility] [place] [address] [phone] Lauro Guevara Plan refer to maxillofacial surgeon for Scheduled 2018 further evaluation/treatment. [facility] [address] [facility] [place] [address] [phone]
--- OUTSIDE RECORDS SUMMARY | 2019-12-19 04:25 | XMS REPORT | Continuity of Care Document ---
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 Tablets for anxiety Albuterol Sulfate use one vial in 75ml Rachel Anaya, 12/09/2019 nebulizer 3 t M.D., R.D. 1.25mg/3ML Nebulizer times daily VSL#3 Take 1 Capsule By 30caps Rachel Anaya, 12/02/2019 Capsules Mouth Every Day M.DVon, R.D. CBD 50MG by mouth every Rachel Anyaa, 11/28/2019 day M.D., R.D. Low Dose Naltrexone 1.5 mg daily for 42units A69.20 Rachel Anaya, 2019 2 weeks, then 3 M.D., R.D. mg daily for 2 weeks, then if needed, 4.5 mg daily Monolurin half scoop of Rachel Anaya, 11/04/2019 pellets 2times M.D., R.D. daily [employer] Thyroid 1 tablet by mouth 270tabs Rachel Anaya, 09/12/2019 30mg Tablets three times daily M.D., R.D. Heparin Sodium Lock Unknown Flush 100Unit/ML Solution [...] po qd 30caps Rachel Anaya, 11/28/2019 - 112.5Bmichael Wolf, R.DVon 12/02/2019 Capsules Amoxicillin/Clavula take 1 tablet by 14tabs Kristan Potter NP 09/26/2019 - jessica Potassium mouth twice daily 10/08/2019 for 7 days for 875-125mg Tablets tonsillitis Medications Administered in Office Medication SIG Qnty Indications Ordering Provider Date TB,Intradermal (PPD, [place]) [facility] 09/11/2018 Injection Immunizations CPT Code Status Date Vaccine Lot # [id number] Refused 10/08/2019 Influenza Virus Vaccine, Quadrivalent, 3 Yr > Quad , Preserv Free [id number] Refused 09/26/2019 Influenza Virus Vaccine, Quadrivalent, 3 Yr > Quad , Preserv Free [id number] Refused 09/12/2019 Influenza Virus Vaccine, Quadrivalent, 3 Yr > Quad , Preserv Free [id number] Refused 06/20/2018 Influenza Virus Vaccine, Quadrivalent, 3 [...] Test Result H/L Range Note CBC Auto 12/09/2019 [facility] White Blood 6.3 10^3/ uL Normal 3.5-10.8 Diff [phone] Count Red Blood Count 4.44 10^6/uL Normal [...] Red Blood Cells % 0.1 Inr/Protime 12/09/2019 [facility] Inr 1.10 High 0.82-1.09 9 [phone] Laboratory test 12/09/2019 [facility] Partial 35.0 Normal 26.0-38.0 finding [phone] Thrombo seconds Time PTT Lactic Acid 0.6 mmol/L Normal 0.5-2.0 2 Troponin-I (TnI) 0.00 ng/mL <0.03 3 HCG < 0.60 mIU/mL 4 Comp Metabolic 12/09/2019 [facility] Sodium 139 mmol/ L Normal 135-145 Panel [phone] Potassium 3.9 mmol/L Normal 3.5-5.0 Chloride 104 [...] Egfr Non- 104.3 >60 Egfr 126.3 >60 5 CBC Auto 12/09/2019 [facility] White Blood 6.0 10^3/ uL Normal 3.5-10.8 Diff [phone] Count Red Blood Count 4.75 10^6/uL Normal [...] Red Blood Cells % 0.1 Laboratory 12/07/2019 [facility] C Difficile SEE RESULT 6 test finding [phone] PCR BELOW MTHFR 11/28/2019 [facility] MTHFR C677T Heterozygous Abnormal Negative 7 Mutation [phone] Mutation Detection MTHFR Interpretation See Comment 8 MTHFR Reviewed By See Comment MTHFR Q3144v Mutation Negative Negative Mthac Interpretation See Comment 9 Mthac Reviewed By See Comment 10 Laboratory test 11/07/2019 [facility] Clotest SEE RESULT 11 finding [phone] BELOW Ebv Kristin Rivera 10/08/2019 [facility] Ebv Capsid Positive Negative Comprehensive [phone] Ag IgG Ab Ebv Capsid Ag IgM Ab Negative Negative Kristin-Rivera Nuclear Antigen Positive Negative Kristin-Rivera Virus Interp See Comment 12 Laboratory 10/08/2019 [facility] TSH (Thyroid 2.24 Normal 0.34-5.60 test finding [phone] Stim Horm) mcIU/mL T3 Total 104 ng/dL Normal 87-178 Free T4 (Free Thyroxine) 0.98 ng/dL Normal 0.61-1.12 Tick-Borne 10/08/2019 [facility] Anaplasma <1:64 < 1:64 13 Disease AB [phone] phagocytophilium titer Panel Babesia microti IgG Ab, S <1:64 titer <1:64 14 Ehrlichia chaffeensis IgG AB <1:64 titer <1:64 15 Lyme Disease Serology Negative Negative 16 Laboratory test 10/08/2019 [facility] Hemoglobin A1c 5.0 % Normal 4.0-5.6 17 finding [phone] Lyme Screen W/ Reflex To WB Negative Negative Comp Metabolic 10/08/2019 [facility] Sodium 138 mmol/ L Normal 135-145 Panel [phone] Potassium 4.2 mmol/L Normal 3.5-5.0 Chloride 103 [...] Egfr Non- 100.8 >60 Egfr 121.9 >60 18 CBC Auto 10/08/2019 [facility] White Blood 6.1 10^3/ uL Normal 3.5-10.8 Diff [phone] Count Red Blood Count 4.79 10^6/uL Normal [...] Neg finding (607)- - Laboratory test 09/12/2019 [facility] TSH (Thyroid 2.65 Normal 0.34-5. 19, 20 finding [phone] Stimulating mcIU/mL 60 Horm) Total T3 117 ng/dL Normal 87-178 21 Free T4 0.75 ng/dL Normal 0.61-1.12 22 Thyroperoxidase AB 231.98 IU/mL High <9 23 Vitamin B12 1142 pg/mL High 180-914 24 Vitamin D Total 25(Oh) 30.2 ng/mL Normal 20-50 25 Free T3 3.90 pg/mL Normal 2.5-3.9 26 Urine DIP 09/12/2019 In House Lab Leukocytes neg Neg (607)- - Urine Nitrites neg Neg Urobilinogen norm Norm Total Protein Urine neg Neg Urine pH 6.0 5-6 Urine Blood neg Neg Specific [place] 1.02 1.01-1.02 Urine Ketones neg Neg Urine Bilirubin neg Neg Urine Glucose norm Norm Mumps Igg 07/12/2019 [facility] Mumps Virus IgG Positive 27, 28 [phone] Antibody Mumps IgG Antibody Index 3.1 29 Laboratory test 07/12/2019 [facility] Rubella Screen Immune Immune 30 finding [phone] Rubeola Measles 07/12/2019 [facility] Rubeola Negative 31 Igg AB [phone] (Measles) IgG Antibody Rubeola IgG Antibody Index 0.7 32 Laboratory test 06/18/2019 [facility] C Difficile PCR SEE RESULT 33 finding [phone] BELOW 1 Standard intensity warfarin therapeutic range: 2.0-3.0 High intensity warfarin therapeutic range: 2.5-3.5 2 [facility] Severe Sepsis and Septic Shock Management Bundle Measure requires all lactic acids initially measuring >2.0 mmol/L be repeated. 3 Troponin-I testing on Plasma Separator Tubes (PST) has a known false positive rate of 0.20-0.40%. All positive troponins reflex immediately to secondary confirmatory testing. Using the [employer] DxI 800 Access Immunoassay systems, the 99th percentile upper reference limit was demonstrated to be < 0.03 ng/mL. 4 <5.0 Negative 5.0 - 25.0 Indeterminate (Repeat testing recommended after 72 hours) >25.0 Positive Perimenopausal women can display HCG levels of up to 20 mIU/mL 5 Because ethnic data is not always readily [...] 15-29 5 Kidney failure <15 (or dialysis) 6 SEE RESULT BELOW Name: BERNICE LOCKWOOD : [address]: Rachel Anaya MD Acct: [id number] Unit: [id number] AGE: 34 Location: [facility] Re12/07/19 SEX: F Status: REG REF SPEC: [id number] TAYLA: 12/07/[address] [facility] [address]: Rachel Anaya MD REQ: [id number] RECD: 12/07/19 STATUS: COMP _ SOURCE: STOOL SPDESC: ORDERED: Adolfo griffin PCR Procedure Result Reported Site Stool Specimen Description Final 12/09/19- 1634 ML Test not performed C. difficile PCR Final 12/09/19- 163 ML Organism 1 027 Presumptive NEGATIVE Organism 2 Toxigenic C.diff NEGATIVE As with all diagnostic procedures, the laboratory results obtained should be used in conjunction with other clinical information available to the physician, including confirmation by another method, as applicable. * ML - Main Lab . END OF REPORT DEPARTMENT OF PATHOLOGY, [address] [place] [address] Byron Eric M.D. Director [facility] # [id number] This individual DOES have the Methylenetetrahydrofolate reductase [...] therapy). If clinically indicated, suggest Coagulation Consultation 30788 (Thrombophila Profile) to complete the evaluation for an inherited or acquired thrombosing disorder (i.e., thrombophilia). Consider genetic consultation and counseling of potentially affected family members regarding laboratory testing. ADDITIONAL INFORMATION This test is a direct mutation analysis using PCR amplification, signal generation and release by cleavage of sequence specific alleles (Invader Plus Chemistry, Values of n, [place], [place]). This test has been modified from the analysis director's instructions. Its performance characteristics were determined by [facility] in a manner consistent with CLIA requirements. This test has not been cleared or approved by the U.S. Food and Drug Administration. 9 This individual DOES NOT have the Methylenetetrahydrofolate reductase (MTHAC) H6457O gene mutation. In the absence of the MTHAC O6693Q gene mutation, other causes of hyperhomocysteinemia should be considered (renal failure, zinc deficiency, leukemia, psoriasis, or antifolate drug therapy). If clinically indicated, suggest Coagulation Consultation 27939 (Thrombophilia Profile) to complete the evaluation for an inherited or acquired thrombosing disorder (i.e., thrombophilia). Consider genetic consultation and counseling of potentially affected family members regarding laboratory testing. ADDITIONAL INFORMATION This test is a direct mutation analysis using PCR amplification, signal generation and release by cleavage of sequence specific alleles (Invader Plus Chemistry, Values of n, [place], [place]). This test has been modified from the analysis director's instructions. Its performance characteristics were determined by [facility] in a manner consistent with CLIA requirements. This test has not been cleared or approved by the U.S. Food and Drug Administration. 10 This test is a direct mutation analysis using PCR amplification, signal generation and release by cleavage of sequence specific alleles (Invader Plus Chemistry, Values of n, [place], [place]). This test has been modified from the analysis director's instructions. Its performance characteristics were determined by [facility] in a manner consistent with CLIA requirements. This test has not been cleared or approved by the U.S. Food and Drug Administration. Test Performed by: [address] [address] Metal Tile Setter: Dyllan Armendariz M.D. Ph.D.; CLIA# [id number] 11 SEE RESULT BELOW Name: BERNICE LOCKWOOD : [address]: Kartik Marina MD Acct: [id number] Unit: [id number] AGE: 34 Location: [facility] Re11/07/19 SEX: F Status: DEP REF SPEC: [id number] TAYLA: 11/07/19-[address]: Kartik Marina MD REQ: [id number] RECD: 11/07/19 STATUS: COMP RAQUELHR DR: Rachel TUCKER _ SOURCE: GAS ANTRUM SPDESC: ORDERED: Clotest Procedure Result Reported Site Clotest Final 11/08/19821 ML Clotest Negative * - [facility] . END OF REPORT DEPARTMENT OF PATHOLOGY, [address] [place] [address] Byron Eric M.D. Director [facility] # [id number] 12 RESULT: Results suggest past infection. ADDITIONAL INFORMATION [...] primary infection with EBV. Test Performed by: [facility] - [address] [address] Metal Tile Setter: Dyllan Armendariz M.D. Ph.D.; CLIA# [id number] 13 ADDITIONAL INFORMATION This test was developed using an analyte specific reagent. Its performance characteristics were determined by [facility] in a manner consistent with CLIA requirements. This test has not been cleared or approved by the U.S. Food and Drug Administration. 14 ADDITIONAL INFORMATION This test was developed using an analyte specific reagent. Its performance characteristics were determined by [facility] in a manner consistent with CLIA requirements. This test has not been cleared or approved by the U.S. Food and Drug Administration. 15 ADDITIONAL INFORMATION This test was developed using an analyte specific reagent. Its performance characteristics were determined by [facility] in a manner consistent with CLIA requirements. This test has not been cleared or approved by the U.S. Food and Drug Administration. 16 No evidence of antibodies to B. burgdorferi detected. False negative results may occur in recently infected patients (<=2 weeks) due to low or undetectable antibody levels to B. burgdorferi. If recent exposure is suspected, a second sample should be collected and tested in 2-4 weeks. Test Performed by: [facility] [address] [place] [address] Metal Tile Setter: Dyllan Armendariz M.D. Ph.D.; CLIA# [id number] 17 Therapeutic target for the treatment of diabetes mellitus patients is <7% HBA1C, and in selective patients <6.0%. Please refer to [place] [employer] diabetic care guidelines for further information. 18 Because ethnic data is not always readily [...] 15-29 5 Kidney failure <15 (or dialysis) 19 [id number] 20 [id number] 21 [id number] 22 [id number] 23 [id number] 24 Normal Range 180 to 914 Indeterminate Range 145 to 180 Deficient Range <145 25 Total 25-Hydroxyvitamin D2 and D3 (25-OH-VitD) <10 ng/mL (severe deficiency) 10-19 ng/mL (mild to moderate deficiency) 20-50 ng/mL (optimum levels) 51-80 ng/mL (increased risk of hypercalciuria) >80 ng/mL (toxicity possible) 26 [id number] 27 [id number] 28 Results suggest response to immunization or prior exposure to the virus. REFERENCE VALUE Vaccinated: Positive (>=1.1 AI) Unvaccinated: Negative (<=0.8 AI) 29 Test Performed by: [facility] [place] [address] Metal Tile Setter: Dyllan Armendariz M.D. Ph.D.; CLIA# [id number] 30 [id number] 31 REFERENCE VALUE Vaccinated: Positive (>=1.1 AI) Unvaccinated: Negative (<=0.8 AI) 32 Test Performed by: [facility] - [address] [address] Metal Tile Setter: Dyllan Armendariz M.D. Ph.D.; CLIA# [id number] 33 SEE RESULT BELOW Name: BERNICE LOCKWOOD : [address]: Aldo Urrutia MD Acct: [id number] Unit: [id number] AGE: 34 Location: [facility] Re06/18/19 SEX: F Status: REG REF SPEC: [id number] TAYLA: 06/18/19-[address] [facility] [address]: Aldo Urrutia MD REQ: [id number] RECD: 06/18/191206 STATUS: COMP _ SOURCE: STOOL SPDESC: ORDERED: C. diff PCR Procedure Result Reported Site Stool Specimen Description Final 06/18/19- 1340 ML Stool Color Brown Stool Form Nonformed Stool Consistency Mucoid Liquid C. difficile PCR Final 06/18/19- 1424 ML Organism 1 027 Presumptive NEGATIVE Organism 2 Toxigenic C.diff NEGATIVE * ML - Main Lab . END OF REPORT DEPARTMENT OF PATHOLOGY, [address] [place] [address] Byron Eric M.D. Director [facility] # [id number] Procedures Description No Information Available Medical Devices Description No Information Available Encounters Type Date Location Provider Dx Diagnosis Office Visit 12/09/2019 Main Office Rachel Anaya, R21 Rash and other 4:00p Maryann R.[place]. nonspecific skin eruption R06.02 Shortness of breath R00.0 Tachycardia, unspecified R07.9 Chest pain, unspecified Office Visit 11/28/2019 [facility] Rachel Anaya, A69.20 Lyme disease, 11:30a Maryann, R.D. unspecified E72.12 Methylenetetrahydrofolate reductase deficiency Office Visit 11/04/2019 Main Office Rachel Anaya, K21.0 Gastro- esophageal 11:45a Maryann, R.D. reflux disease with esophagitis A69.20 Lyme disease, unspecified Office Visit 10/08/2019 10:15a [facility] Rachel Anaya M.D., R51 Headache R.D. R42 Dizziness and giddiness Office Visit 09/26/2019 11:15a [facility] Kristan J03.90 Acute tonsillitis, Tariq, [employer] unspecified F41.9 Anxiety disorder, unspecified N60.01 Solitary cyst of right breast Office Visit 09/12/2019 3:30p [facility] Kristan Potter, E06.3 Autoimmune [employer] thyroiditis Office Visit 07/26/2019 2:30p [facility] Kristan Potter, F41.9 Anxiety disorder, [employer] unspecified R19.7 Diarrhea, unspecified F90.0 Attn-defct hyperactivity disorder, predom inattentive type E06.3 Autoimmune thyroiditis R53.82 Chronic fatigue, unspecified Office Visit 07/12/2019 1:15p [facility] Kristan Potter, Z00.00 Encntr for [employer] general adult medical exam w/o abnormal findings Z01.84 Encounter for antibody response examination R19.7 Diarrhea, unspecified K13.79 Other lesions of oral mucosa Office Visit 07/08/2019 11:15a Main Office Kristan Potter, R19.7 Diarrhea, [employer] unspecified F41.9 Anxiety disorder, unspecified K13.79 Other lesions of oral mucosa Office Visit 06/18/2019 9:00a [facility] Aldo Urrutia, R19.7 Diarrhea , M.D. unspecified Assessments Date Code Description Provider 12/09/2019 R21 Rash and other nonspecific skin eruption Rachel Anaya M.D. , R.D. 12/09/2019 R06.02 Shortness of breath Rachel Anaya M.D., R.D. 12/09/2019 R00.0 Tachycardia, unspecified Rachel Anaya M.D., R.D. 12/09/2019 R07.9 Chest pain, unspecified Rachel Anaya M.D., R.D. 11/28/2019 A69.20 Lyme disease, unspecified Rachel Anaya M.D., R.D. 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 11/04/2019 K21.0 Gastro-esophageal reflux disease with Rachel Anaya M.D., esophagitis R.D. 11/04/2019 A69.20 Lyme disease, unspecified Rachel Anaya M.D., R.D. 10/08/2019 R51 Headache Rachel Anaya M.D., R.D. 10/08/2019 R42 Dizziness Rachel Anaya M.D., R.D. 09/26/2019 J03.90 Acute tonsillitis, unspecified Kristan Potter, [employer] 09/26/2019 F41.9 Anxiety disorder, unspecified Kristan Potter, [employer] 09/26/2019 N60.01 Solitary cyst of right breast Kristan Potter, [employer] 09/12/2019 E06.3 Autoimmune thyroiditis Kristan Potter, [employer] 07/26/2019 F41.9 Anxiety disorder, unspecified Kristan Potter, [employer] 07/26/2019 R19.7 Diarrhea, unspecified Kristan Potter, [employer] 07/26/2019 F90.0 Attention-deficit hyperactivity disorder, Kristan Potter, [employer] predominantly inat 07/26/2019 E06.3 Autoimmune thyroiditis Kristan Potter, [employer] 07/26/2019 R53.82 Chronic fatigue, unspecified Kristan Potter, SABIHA 07/12/2019 Z00.00 Encounter for general adult medical Kristan Potter NP examination without abnormal findings 07/12/2019 Z01.84 Encounter for antibody response Kristan Potter NP examination 07/12/2019 R19.7 Diarrhea, unspecified Kristan Potter NP 07/12/2019 K13.79 Other lesions of oral mucosa Kristan Potter NP 07/08/2019 R19.7 Diarrhea, unspecified Kristan Potter, [employer] 07/08/2019 F41.9 Anxiety disorder, unspecified Kristan Potter, [employer] 07/08/2019 K13.79 Other lesions of oral mucosa Kristan Potter, [employer] 06/18/2019 R19.7 Diarrhea, unspecified Aldo Urrutia M.D. Plan of Treatment Future Appointment(s):12/12/2019 10:15 am - Rachel Anaya M.D., R.D. at [facility]01/31/2020 3:30 pm - Rachel Anaya M.D., R.D. at [facility] Functional Status Description No Information Available Mental Status Description No Information Available Referrals Refer to Dr Reason for Referral Status Appt Date [facility] Referral to [facility] Neurology Patient Declined for evaluation - headache and vision changes. - - Please contact Pt to schedule appt. - - Please fax appointment date/time to [facility] Medicine, . [facility] [address] [place] [address] [phone] Sophia Sandoval PA Referral to GI associates for Patient Declined 2018 consult. [facility] [place] [address] [phone] Lauro Guevara Plan refer to maxillofacial surgeon for Scheduled 2018 further evaluation/treatment. [facility] [address] [facility], [address] [place] [address] [phone]
[2019-12-19 05:11] VITALS: BP 128/78
== END 2019-12-19 04:30 | disposition home or self-care (01) ==
LOC: ED 23:39
DX: R21 Rash and other nonspecific skin eruption (principal); R50.9 Fever, unspecified; A69.20 Lyme disease, unspecified; R06.02 Shortness of breath; E06.3 Autoimmune thyroiditis; I73.00 Raynaud's syndrome without gangrene
CPT/HCPCS: 36415; 71045; 71275; 80053; 81003; 83605; 84484; 85025; 85379; 85610; 85652; 85730; 86140; 86308; 87040; 93005; 96360; 96361; 99284; A9270-GY; Q9967